=== PATIENT | male | born 1940 | race Caucasian/White ===

== ENCOUNTER → 2020-12-04 13:07 | Outpatient (CLI) | payer MEDICARE, SELFPAY ==
--- NOTE | 2020-12-04 13:12 | DI.RAD.S_ITS ---
PROCEDURE: XR LUMBAR SPINE MIN 4V INDICATIONS: lumbar radiculopathy TECHNIQUE: 5 views of the lumbar spine were acquired, including bilateral oblique views. COMPARISON: None. FINDINGS: Bones: No fracture. Grade 1 anterolisthesis of L4 on L5. Moderate narrowing of the L4-L5 and L5-S1 disc spaces. Multilevel degenerative endplate sclerosis and spurring. Diffuse facet arthropathy. Diffuse narrowing of the remaining lumbar disc spaces. Soft tissues: Overlying bowel gas pattern is normal. No suspicious soft tissue calcifications. Oblique images: No pars defects. IMPRESSION: Lower lumbar spondylosis and facet arthropathy Dictated by: Chai Vega M.D. on 12/04/2020 at 13:41 Approved by: Chai Vega M.D. on 12/04/2020 at 13:44
== END ==
PROVIDERS: PCP Physician Assistant; Referring Provider Physical Medicine & Rehabilitation; Visit Provider Physical Medicine & Rehabilitation
DX: M47.26 Other spondylosis with radiculopathy, lumbar region (principal); M43.16 Spondylolisthesis, lumbar region; M48.061 Spinal stenosis, lumbar region without neurogenic claudication
CPT/HCPCS: 72110; 99215

== ENCOUNTER → 2020-12-14 11:41 | Outpatient (CLI) | payer MEDICARE, SELFPAY ==
--- NOTE | 2020-12-14 11:43 | DI.MRI.S_ITS ---
PROCEDURE: MR LUMBAR SPINE WO CON INDICATIONS: L4-5 spondylolisthesis, spinal stenosis TECHNIQUE: Noncontrast sagittal T1 spin echo and T2 fast echo, sagittal STIR, axial T1 and T2 fast spin echo through the lumbar spine. In cases with scoliosis, additional coronal T2 fast spin echo may be performed. COMPARISON: [facility], CR, XR LUMBAR SPINE MIN 4V, 12/04/2020, 13:10. FINDINGS: Image quality: Excellent. Alignment and Curvature: 5 lumbar type vertebral bodies are present by plain film. Mild grade 1 anterolisthesis of L4 on L5. Bone Marrow: Marrow is of normal overall signal. No acute vertebral body compression fractures. Moderate reactive signal within the endplates adjacent to the L5-S1 intervertebral disc. Mild reactive signal within the endplates adjacent to the T12-L1, L1-L2, L2-L3, L3-L4, and L4-L5 intervertebral discs. Spinal Cord: Conus medullaris terminates at the lower L2 level. Visualized cord demonstrates normal signal and size. Paraspinous Soft Tissues: No paravertebral masses. T12-L1: Mild disc height loss and desiccation. Mild diffuse disc bulge. Mild facet and ligamentum flavum hypertrophy. Mild canal stenosis. No foraminal stenosis. L1-L2: Mild disc desiccation and diffuse disc bulge. Mild facet and ligamentum flavum hypertrophy. Mild epidural lipomatosis. Mild canal stenosis. Mild bilateral foraminal stenosis. L2-L3: Moderate disc desiccation. Mild disc height loss and diffuse disc bulge. Mild facet and ligamentum flavum hypertrophy. Mild epidural lipomatosis. Moderate to severe canal stenosis. Moderate right and mild left foraminal stenosis. L3-L4: Moderate disc height loss and desiccation. Moderate diffuse disc bulge. Moderate facet and ligamentum flavum hypertrophy. Mild epidural lipomatosis. Severe canal stenosis. Moderate right and mild left foraminal stenosis. L4-L5: Moderate disc height loss and desiccation. Moderate diffuse disc bulge with superimposed right left far lateral disc extrusion. Moderate facet and ligamentum flavum hypertrophy. Marked, severe canal stenosis. Severe left and moderate right foraminal stenosis. Left L4 nerve root compression. L5-S1: Severe disc height loss and desiccation. Mild diffuse disc bulge. Mild facet and ligamentum flavum hypertrophy. Mild epidural lipomatosis. Mild canal stenosis. Moderate bilateral foraminal stenosis. IMPRESSION: 1. Multilevel degenerative disc and facet disease, as well as ligamentum flavum hypertrophy and epidural lipomatosis. 2. Multilevel canal stenoses, worst at L3-L4 and L4-L5 where there are severe canal stenoses. Moderate to severe canal stenosis at L2-L3. 3. Multilevel foraminal stenoses, worst at L4-L5 where there is associated intraforaminal nerve root compression. Recommend correlation with clinical symptoms to ascertain relevance of this finding. Dictated by: Jaret Morales M.D. on 12/14/2020 at 13:22 Approved by: Jaret Morales M.D. on 12/14/2020 at 13:25
== END ==
PROVIDERS: PCP Physician Assistant; Referring Provider Physical Medicine & Rehabilitation; Visit Provider Physical Medicine & Rehabilitation
DX: M51.26 Other intervertebral disc displacement, lumbar region (principal); M43.16 Spondylolisthesis, lumbar region; M51.36 Other intervertebral disc degeneration, lumbar region; M51.37 Other intervertebral disc degeneration, lumbosacral region; M48.061 Spinal stenosis, lumbar region without neurogenic claudication; M48.07 Spinal stenosis, lumbosacral region; E88.2 Lipomatosis, not elsewhere classified
CPT/HCPCS: 72148

== ENCOUNTER → 2020-12-19 08:26 | Outpatient (CLI) | payer MEDICARE, SELFPAY ==
[2020-12-19 12:25] LABS: COVID19 -Nasal RAPID Negative (Negative)
== END ==
PROVIDERS: PCP Physician Assistant; Visit Provider Physical Medicine & Rehabilitation
DX: Z20.822 Contact with and (suspected) exposure to COVID-19 (principal)
CPT/HCPCS: 87635; C9803

== ENCOUNTER 2020-12-21 15:32 | Outpatient (CLI) | payer MEDICARE, SELFPAY ==
[2020-12-21] VITALS (10 sets, daily range): BP systolic 121–167; BP diastolic 74–91; PULSE 64–85; RESP 12–21; TEMP 36.5; O2SAT 97–100
--- NOTE | 2020-12-21 15:33 | DI.RAD.S_ITS ---
PROCEDURE: PAIN L/S TRANSFORAMINAL INJECT INDICATIONS: SPONDYLOSIS COMPARISON: None. FINDINGS: Fluoroscopic spot filming was performed to verify placement of spinal needles at the left L4-5 foraminal level(s), as labeled on the films. Appropriate location(s) of the needle tip(s) was confirmed by injection of iodinated contrast. IMPRESSION: Successful needle tip localization on the left for transforaminal epidural steroid injection. Dictated by: Ronal Guzman M.D. on 12/21/2020 at 16:54 Approved by: Ronal Guzman M.D. on 12/21/2020 at 16:55
[2020-12-21] MEDS: fentaNYL 100 MCG/2 ML INJ 50 MCG IV (16:05)
[2020-12-21] MEDS: MIDAZOLAM 5 MG/5 ML VIAL IV (16:10)
[2020-12-21] MEDS: IOPAMIDOL 15 ML VIAL 3 ML INJ (16:10)
[2020-12-21] MEDS: BUPIVACAINE 0.25% (PF) VIAL 2 ML INJ (16:10)
[2020-12-21] MEDS: DEXAMETHASONE 10 MG/ML VIAL 20 MG INJ (16:11)
[2020-12-21] MEDS: methylPREDNISolone acetate 80 MG/ML VIAL INJ (16:13)
--- NOTE | 2020-12-21 16:35 | P.PCN_ITS ---
Date/Time/Diagnoses Date of procedure: 12/21/20 Time of procedure: 16:35 Pre-procedure diagnosis: 1. FORAMINAL STENOSIS WITH LE SYMPTOMS Post-procedure diagnosis: same Procedure Notes Procedure: 1. FLUOROSCOPICALLY GUIDED CONTRAST CONTROLLED TRANSFORAMINAL EPIDURAL STEROID INJECTION - LEFT L4/5 Indications: Nathanael is referred by PATTI Rodriguez for treatment of Foraminal Stenosis with Left LE Symptoms Physician: Elder Garcia Total Fluoroscopy time (seconds): 26 Total sedation minutes: 22 Complications: none Procedure in detail & Post-procedure care: FINDINGS Foraminal Nerve Root Compression secondary to disc disease and facet hypertrophy DESCRIPTION OF PROCEDURE Following review of allergy and review of potential side effects and complications, including, but not necessarily limited to, infection, allergic reaction, local tissue breakdown, stroke, temporary or permanent nerve injury, paralysis, and possible , the patient indicated that the patient understood and agreed to proceed. An informed consent document was signed by the patient, witnessed by a nurse, and placed in the patient's chart. Additionally, other treatment options including medications, modalities, and physical therapy were reviewed with the patient. After review of previous anaesthesic history and IV conscious sedation the patient was deemed safe to proceed with today?s procedure with IV conscious sedation as ASA class II designation. Safety time-out was performed to confirm patient ID, procedure to be performed and site of procedure. IV sedation was accomplished with a combination of mg of Versed and 50mcg of Fentanyl administered by the RN after DO order, titrated to patient comfort during the course of the procedure while the patient remained responsive to all verbal commands In the prone position following sterile prep and drape of the lumbar region, the left L4/5 posterior neuroforamen was identified fluoroscopically. The skin was anesthetized via a 25-gauge 1.5-inch needle with 1% lidocaine solution. At this point, a 25-gauge 3.5-inch spinal needle was atraumatically introduced and advanced under fluoroscopic guidance through the posterior left L4/5 neuroforamen to approximately the anterior aspect of the canal. Depth was confirmed on lateral view. Following negative aspiration, injection of approximately 1.5 cc of Isovue 200 under live fluoroscopy in the AP view confirmed excellent flow along the nerve root, into the epidural space without vascular or intrathecal uptake observed Radiological data, including multiple fluoroscopic views of the lumbosacral spine, reveal a spinal needle at the left L4/5 posterior neuroforamen. Subsequent views show flow of contrast material flowing superiorly and inferiorly along the nerve root confirming epidural flow. Subsequently, a test dose of 1.5 cc of 1% lidocaine solution was administered and patient was observed for two minutes for signs or symptoms of complications, including abdominal pain, shortness of breath, bilateral upper or lower extremity weakness, nausea and vomiting, prior to steroid injection. At this point, a total of 3cc or 20mg of dexamethasone and 80mg of Depo medrol was injected without incident. The procedure tolerated the procedure well without signs or symptoms of complications prior to transfer to the recovery area continued monitoring without incident. The patient was then transferred to the recovery area where they were observed for an appropriate time after the injection. The patient reported a VAS score of 9 prior to the procedure and a post- procedure VAS of 1. POST OP INSTRUCTIONS The patient was provided a Pain Log to continue to record their response to the target-specific procedure prior to follow-up visit with their referring physician. Additionally, specific post-injection care instructions and a contact number to our office were provided if concerns arise regarding possible complications associated with the procedure are suspected.
== END 2020-12-21 16:52 | disposition home or self-care (01) ==
LOC: RAD 15:33
PROVIDERS: PCP Physician Assistant; Referring Provider Physical Medicine & Rehabilitation; Visit Provider Physical Medicine & Rehabilitation
DX: M48.061 Spinal stenosis, lumbar region without neurogenic claudication; M51.16 Intervertebral disc disorders with radiculopathy, lumbar region
CPT/HCPCS: 64483; 99152; J0702; J1040; J1100; J2250; J3010

== ENCOUNTER → 2021-03-19 10:19 | Outpatient (CLI) | payer MEDICARE, SELFPAY ==
[2021-03-19 17:59] LABS: COVID19 -Nasal RAPID Negative (Negative)
== END ==
PROVIDERS: PCP Physician Assistant; Visit Provider Physical Medicine & Rehabilitation
DX: Z20.822 Contact with and (suspected) exposure to COVID-19 (principal)
CPT/HCPCS: 87635; C9803

== ENCOUNTER 2021-03-20 10:27 | Outpatient (CLI) | payer MEDICARE, SELFPAY ==
[2021-03-20] VITALS (8 sets, daily range): BP systolic 116–148; BP diastolic 61–90; PULSE 76–92; RESP 17–28; TEMP 36.7; O2SAT 98–100
--- NOTE | 2021-03-20 10:28 | DI.RAD.S_ITS ---
PROCEDURE: PAIN L INTERLAMINAR/CAUDAL INJ INDICATIONS: SPONDYLOSIS COMPARISON: [facility], CR, XR LUMBAR SPINE MIN 4V, 03/20/2021, 12:19. [facility], XA, PAIN L/S TRANSFORAMINAL INJECT, 12/21/2020, 16:11. FINDINGS: Fluoroscopic spot filming was performed to verify placement of a spinal needle at the L4-L5 level, as labeled on the films. Appropriate location of the needle tip was confirmed by injection of iodinated contrast. IMPRESSION: Intraprocedural examination within normal limits. Dictated by: Aydin Raygoza M.D. on 03/20/2021 at 12:13 Approved by: Aydin Raygoza M.D. on 03/20/2021 at 12:14
[2021-03-20] MEDS: MIDAZOLAM 5 MG/5 ML VIAL IV (11:49)
[2021-03-20] MEDS: fentaNYL 100 MCG/2 ML INJ 50 MCG IV (11:49)
[2021-03-20] MEDS: BUPIVACAINE 0.25% (PF) VIAL 2 ML INJ (11:54)
[2021-03-20] MEDS: IOPAMIDOL 15 ML VIAL 3 ML INJ (11:54)
[2021-03-20] MEDS: BETAMETHASONE 30 MG/5 ML MDV 12 MG INJ (11:54)
[2021-03-20] MEDS: DEXAMETHASONE 10 MG/ML VIAL 20 MG INJ (11:56)
--- NOTE | 2021-03-20 12:06 | P.PCN_ITS ---
Date/Time/Diagnoses Date of procedure: 03/20/21 Time of procedure: 12:06 Pre-procedure diagnosis: 1. HNP WITH RADICULAR FEATURES, 2. MULTILEVEL CENTRAL STENOSIS, Post-procedure diagnosis: same Procedure Notes Procedure: 1. FLUOROSCOPICALLY GUIDED CONTRAST CONTROLLED INTERLAMINAR EPIDURAL STEROID INJECTION -L4/5 Indications: Devon is referred by PATTI Rodriguez for treatment of Bilateral Foraminal Stenosis R>L LE symptoms. Physician: Elder Garcia Total Fluoroscopy time (seconds): 5 Total sedation minutes: 10 Complications: none Procedure in detail & Post-procedure care: FINDINGS Multilevel Central Spinal Stenosis with Nerve Root Compression DESCRIPTION OF PROCEDURE Fluoroscopically guided, contrast-controlled L4/5 translaminar epidural steroid injection. Following review of allergy and review of potential side effects and complications, including, but not necessarily limited to, infection, allergic reaction, local tissue breakdown, temporary as well as permanent nerve injury, paralysis, stroke and possible , the patient indicated that the patient understood and agreed to proceed. An informed consent document was signed by the patient, witnessed by a nurse, and placed in the patient's chart. Additionally, other treatment options including modalities, medications, and physical therapy were reviewed with the patient. After review of previous anaesthesic history and IV conscious sedation the patient was deemed safe to proceed with today?s procedure with IV conscious sedation as ASA class II designation. Safety time-out was performed to confirm patient ID, procedure to be performed and site of procedure. IV sedation was accomplished with a combination of 2mg of Versed and 50mcg of Fentanyl was administered by the RN after DO order, titrated to patient comfort during the course of the procedure while the patient remained responsive to all verbal commands In the prone position, following sterile prep and drape of the lumbar region, the L4/5 translaminar space was identified fluoroscopically. The skin was anesthetized via a 25-gauge, 1.5inch needle with 1% lidocaine solution. At this point, a 22-gauge short bevel spinal needle was atraumatically introduced and advanced under fluoroscopic guidance into the region of the L4/5 translaminar space. Depth was confirmed on lateral view. Radiological data, including multiple fluoroscopic views of the lumbar spine, reveal a spinal needle at the L4/5 translaminar space. Lateral views then show placement of the needle in the epidural space. Subsequent views show contrast material flowing superiorly and inferiorly in the epidural space. No vascular or intrathecal uptake is observed. At this point, using loss of resistance technique with saline and air, the epidural space was entered. This was confirmed following negative aspiration with injection of approximately 1.5cc of Isovue 200, showing excellent epidural flow without vascular or intrathecal uptake. At this point, 1cc of 1% lidocaine solution combined with 4cc or 20mg of dexamethasone and 12mg betamethasone was injected without incident. The patient tolerated the procedure well without signs or symptoms of complications prior to transfer to the recovery area continued monitoring without incident. The patient was then transferred to the recovery area where they were observed for an appropriate period of time after the injection. The patient reported a VAS score of 6 prior to the procedure and a post- procedure VAS of 0. POST OP INSTRUCTIONS The patient was provided a Pain Log to continue to record their response to the target-specific procedure prior to follow-up visit with their referring physician. Additionally, specific post-injection care instructions and a contact number to our office were provided if concerns arise regarding possible complications associated with the procedure are suspected.
--- NOTE | 2021-03-20 12:12 | DI.RAD.S_ITS ---
PROCEDURE: XR LUMBAR SPINE MIN 4V INDICATIONS: Severe acute LBP TECHNIQUE: 5 views of the lumbar spine acquired, including flexion and extension views. COMPARISON: [facility], MR, MR LUMBAR SPINE WO CON, 12/14/2020, 11:45. [facility], CR, XR LUMBAR SPINE MIN 4V, 12/04/2020, 13:10. FINDINGS: There are 5 [id number] lumbar type vertebral bodies. Vertebral body heights maintained. No evidence of fracture. Anterolisthesis of L4 on L5 measuring approximately 10 millimeters in the neutral position, possibly increasing to 11 millimeters in the flexion position. Severe spinal canal or neural foraminal stenosis at this level is better seen on the comparison MRI. Straightening of the usual lumbar lordosis at the remaining levels. No additional listhesis. Disc height loss from L2-L3 through L5-S1 with varying degrees of facet degenerative change. IMPRESSION: Grade 1 anterolisthesis of L4 on L5 with suggestion of mild dynamic instability upon flexion. Severe spinal canal or neural foraminal stenosis at L4-L5. Dictated by: Nikhil Gomez M.D. on 03/20/2021 at 14:44 Approved by: Nikhil Gomez M.D. on 03/20/2021 at 14:46
== END 2021-03-20 12:50 | disposition home or self-care (01) ==
LOC: RAD 10:28
PROVIDERS: PCP Physician Assistant; Referring Provider Physical Medicine & Rehabilitation; Visit Provider Physical Medicine & Rehabilitation
DX: M51.16 Intervertebral disc disorders with radiculopathy, lumbar region (principal); M48.061 Spinal stenosis, lumbar region without neurogenic claudication
CPT/HCPCS: 62323; 72110; 99152; J0702; J1100; J2250; J3010

== ENCOUNTER → 2021-09-17 11:51 | Outpatient (CLI) | payer MEDICARE, SELFPAY ==
--- NOTE | 2021-09-17 | DI.CT.S_ITS ---
PROCEDURE: CT LUMBAR SPINE WO CON INDICATIONS: Spinal stenosis, lumbosacral region TECHNIQUE: Noncontrast 3 mm thick sections acquired from the T12 level to the sacrum. Sagittal and coronal reformats were constructed. For radiation dose reduction, the following was used: automated exposure control. COMPARISON: [facility], MR, MR LUMBAR SPINE WO CON, 12/14/2020, 11:45. FINDINGS: Image quality: Excellent. Bones: There is grade 1 anterolisthesis measuring 6 mm of L4 on L5, unchanged. There are no visualized fractures or dislocations. No suspicious osseous lesions. Severe disc space narrowing is present at L5-S1, moderate throughout the remainder of the lumbar spine with vacuum disc at L4-5. Multilevel anterior osteophytes are present bridging at T10-11. Disc bulges are present at L1-L2, L2-3, L3-4, L4-5 and L5-S1. Previously identified disc protrusion at L4-5 remains present. Mild spinal stenosis is present at L1-L2, severe L2-3 with mild canal compression, progressive, severe L3-4 with canal compression stable, stable severe with canal compression at L4-5, mild L5-S1. Multilevel facet and ligamentum flavum hypertrophy as well as epidural lipomatosis are present. There is mild bilateral foraminal narrowing at L1-2, moderate right and mild left L2-3, L3-4, severe left and moderate right L4-5, moderate bilateral L5-S1, unchanged. Soft tissues: No retroperitoneal masses or hematomas. Visualized aorta is normal in caliber. Calculus is present within the left posterior lateral bladder. There is a partially visualized soft tissue mass at the posterior bladder. IMPRESSION: Multilevel significant degenerative changes including multilevel severe spinal stenosis with areas of progression as above. Spinal stenosis is predominantly secondary to facet/ligamentum flavum arthropathy with contributing effect of disc bulges and epidural lipomatosis. Multilevel foraminal narrowing most severe at L4-5 secondary to facet arthropathy. Partially visualized soft tissue mass at the posterior inferior bladder. This could represent hypertrophy prostate tissue. However, it is only seen in limited view and further evaluation with CT is recommended. Dictated by: Rupinder Winslow M.D. on 09/17/2021 at 12:41 Approved by: Rupinder Winslow M.D. on 09/17/2021 at 14:21
== END ==
PROVIDERS: PCP Physician Assistant; Referring Provider Orthopaedic Surgery Orthopaedic Surgery of the Spine; Visit Provider Orthopaedic Surgery Orthopaedic Surgery of the Spine
DX: M48.07 Spinal stenosis, lumbosacral region (principal); M48.061 Spinal stenosis, lumbar region without neurogenic claudication; M47.816 Spondylosis without myelopathy or radiculopathy, lumbar region; M47.817 Spondylosis without myelopathy or radiculopathy, lumbosacral region
CPT/HCPCS: 72131

== ENCOUNTER → 2021-10-08 10:32 | Outpatient (CLI) | payer MEDICARE, SELFPAY ==
[2021-10-08 13:12] LABS: COVID19 -Nasal RAPID Negative (Negative)
== END ==
PROVIDERS: PCP Physician Assistant; Visit Provider Family Medicine Sleep Medicine
DX: Z20.822 Contact with and (suspected) exposure to COVID-19 (principal)
CPT/HCPCS: 87635; C9803

== ENCOUNTER 2021-10-11 09:30 | Inpatient (IN) | payer MEDICARE, SELFPAY ==
[2021-10-02 12:42] VITALS: BMI 28.0
[2021-10-10] VITALS (12 sets, daily range): BP systolic 98–145; BP diastolic 58–78; PULSE 70–85; RESP 8–19; TEMP 36.2–37.1; O2SAT 94–100; BMI 28.0
--- NOTE | 2021-10-10 | DI.RAD.S_ITS ---
PROCEDURE: XR LUMBAR SPINE 2-3V INDICATIONS: TLIF L4-5, L5-S1 TECHNIQUE: 2 low resolution fluoroscopic spot films were obtained the lower lumbar spine intraoperatively COMPARISON: [facility], , XR LUMBAR SPINE MIN 4V, 03/20/2021, 12:19. FINDINGS: Low resolution fluoroscopic spot films of the lower lumbar spine shows L4-5 and L5-S1 interbody fusion with posterior josephine and screw instrumentation, in place IMPRESSION: Fluoroscopic guidance Approved by: Jono Bustamante M.D. on 10/10/2021 at 15:43
[2021-10-10] MEDS: LACTATED RINGERS 1,000 ML 42 ML IV ×2 (09:41→12:55)
--- NOTE | 2021-10-10 11:19 | PM.PREOP ---
Pre-operative Note COVID-19 COVID-19 status: Negative Result date/Date tested (Pos, Neg/Pending): 10/09/21 Criteria for continued procedure: Expected advancement of disease process, Possibility delay results in more complex future surgery or treatment, Increased loss of function, Continuing or worsening of significant or severe pain, Deterioration of the patient's condition or overall health and Delay expected to result in less-positive ultimate med/surg outcome Interval Note History & Physical reviewed/Exam performed by Physician: Yes Changes to H&P: No
[2021-10-10] MEDS: CEFAZOLIN 2 GM/20 ML SYRINGE IV ×2 (12:05→21:42)
--- NOTE | 2021-10-10 12:39 | SUR.OPER ---
Prone on spine table, head in foam head support, padded chest and pelvic supports, gel pad at knees, lower legs supported by pillows; nipples, genitalia and toes free of pressure, arms secured on foam padded arm boards at <90 degrees abduction. Tape over blanket at thigh secured to table. Gel pad placed between heels. Patient's glasses placed in glass case with patient label in patient belonging bag in pre op.
[2021-10-10] MEDS: EPINEPHrine 1 MG/ML 0.15 MG INJ (13:42)
[2021-10-10] MEDS: BUPIVACAINE 0.5% (PF) VIAL 30 ML INJ (13:43)
[2021-10-10] MEDS: BUPIVACAINE LIPOSOME 266 MG/20 ML VIAL INJ (15:30)
--- NOTE | 2021-10-10 16:01 | PM.OP.1 ---
Operative Date/Time/Diagnoses Date of procedure: 10/10/21 Time of procedure: 12:15 Pre-op diagnosis: 1. L4-5 spondylolisthesis 2. L4-5, L5-S1 spinal stenosis with neurogenic claudication Post-op diagnosis: same Procedure & Clinicians Procedure: 1. L4-5, L5-S1 Postero-lateral and posterior interbody fusion 2. L4-5, L5-S1 interbody cage placement. 3. L4-5, L5-S1 decompressive laminectomy with bilateral facetecomies 4. L4-5, L5-S1 Posterior segmental instrumentation 5. [place] of bone marrow from iliac crest 6. Utilization of microsurgical technique and operating microscope Same procedure as scheduled: Yes Indications: Patient has been having chronic back pain and worsening lumbar radiculopathy and symptoms of neurogenic claudication. Patient also has complaints of urinary retention most likely related to his severe spinal stenosis in the lumbar spine. Patient failed multiple conservative management with worsening pain weakness and numbness in his lower extremity. Patient has been having difficulty performing activity of daily living. After discussing risks benefits of treatment options, patient elected proceed with surgery. Surgeon: Juan Chatman Towboat Pilot: Cornelia Finney Click Yes if Unassisted: No Anesthesia Type: General Operative Notes Closure Type: primary Specimen(s): none sent Estimated Blood Loss (mL): 150 Blood products transfused: none Procedure in detail: Patient was seen in the preoperative area. Risks and benefits of the surgery was discussed with the patient. Informed consent was obtained from the patient and placed in the chart. Surgical site was marked. Patient was taken to the operative room. General anesthesia was administered. Prophylactic antibiotic was given to the patient less than 30 min before the incision was made. Patient was placed into a prone position on the Zana table. Patient's back was then prepped and draped in the sterile fashion. Time-out was performed at this time. After patient was prepped and draped, patient's PSIS was palpated and marked bilaterally. Small 1 cm incision was made over the PSIS for placement of the reference probes. Two trocar was placed into the PSIS 1 on each side. The reference probe was attached to the trocar of the reference apparatus. At this time the C-arm imaging was used to confirm AP and lateral of L4-L5, L5-S1 vertebrae and merged the C-arm imaging using the [employer] robotic navigation system with the CT of the lumbar spine. After successful merging was completed and confirmed, skin marker was used to carmine out the skin incision using the [employer] robotic arm. Bilateral incision was made at this time. Pre templated trajectory was used and guided using the [employer] robotic navigation system for bilateral L4, L5, S1 pedicle screw placement. This was done by using the robotic arm to guide the high-speed bur to make a cortical entry point. Next a drill was placed also using the robotic arm and guided using the navigation system drilling partially through bilateral L4, L5 and S1 pedicles. Next L4, L5, S1 pedicle screws it was pre templated and measured was placed onto the power mechanic driver and inserted into the pedicles bilaterally. After all 6 screws were placed C-arm imaging was taken of both AP and lateral to confirm the placement. Excellent placement of the screws were confirmed and a matched precisely with the pre planned screw placement using the navigation system. MARs retractor was inserted using [employer] guidence. Globus MARS retractors was placed inside the incision and docked onto the L4 and L5 lamina. Using microsurgical technique and operating microscope, a L4, L5 laminectomy and L4-5, L5-S1 facetectomy was performed using a Kerrison rongeur. Patient was found have severe lateral recess and neural foramen stenosis which was fully decompressed after the laminectomy facetectomy. Patient was found to have severe central and foraminal stenosis due to hypertrophied ligamentum flavum and facet joint. More than 75% of the facets were removed during the process of decompression rendering L4-5, L5-S1 level grossly unstable and required a fusion procedure at the same time. The disc space at L4-5, L5-S1 was identified, and a total diskectomy was performed at L4-5, L5-S1 level. The endplates were decorticated using a rasp and shaver. The total diskectomy and decortication was performed at L4-5, L5-S1 level in order to to accomplish a L4-5, L5-S1 fusion. The local bone from the laminectomy and facetectomy was saved for local bone grafting. After the total diskectomy and decortication was completed, Trifecta bone graft material was combined with local bone that was harvested earlier. At this time, a separate skin is incision was made over the iliac crest. A Jamshidi needle was inserted into the iliac crest through a separate skin incision. 5 cc of bone marrow aspiration was obtained through the separate skin incision using a Jamshidi needle from the iliac crest. The bone marrow aspiration was combined with local bone and the Tr[employer] bone grafting material. The bone grafting material was placed into the L4-5, L5-S1 interbody space along with a expandable cage. The cage was expanded to its maximum height using the torque limiting screwdriver. The disc preparation as well as the cage insertion were also performed under navigation guidance. After the cage was placed, AP and lateral C-arm imaging was taken to confirm placement of the cage and excellent position was confirmed. Globus MARS retractor was inserted and docked onto the L4-5, L5-S1 posterolateral gutter on the right side. Using the power drill, posterior-lateral decortication was performed at L4-5, L5-S1 level until bleeding cortical bone was identified. The remaining bone grafting material was placed into the L4-5, L5-S1 posterior lateral gutter he order to accomplish posterolateral fusion at the L4-5, L5-S1 level. At this time the tulips were attached to the L4, L5, S1 pedicle screw shanks. After measuring the length of the rods, they were inserted into the tulips of the pedicle screws and locked in place using locking caps and torque limiting screwdriver bilaterally. Total 6 caps and 2 titanium rods was used in order to complete the posterior instrumentation construct. After all the hardware was placed, and confirmed with AP and lateral C-arm imaging, the wound was then irrigated with sterile normal saline and packed with Ray-Sakshi gauze for 3 min to accomplish hemostasis. After the gauze was removed the deep fascia was closed with #1 Vicryl suture. The subcutaneous layer was closed with 2-0 Vicryl. The skin was closed with skin moira. Patient tolerated the procedure well. There were no complications. Neuro monitoring system was used to monitor patient's neurologic status throughout entire procedure. There was no disturbance of the neural monitoring signals throughout the case. Complications: none Post-operative Condition: stable Disposition: PACU Plan for aftercare: Admit to inpatient hospital
[2021-10-10] MEDS: OXYCODONE/ACETAMINOPHEN 5/325 TABLET 1 TAB PO (16:22)
[2021-10-10] MEDS: hydrOXYzine 50 MG/ML INJ IM (16:22)
[2021-10-10] MEDS: fentaNYL 100 MCG/2 ML INJ IV ×2 (16:30→16:41)
--- NOTE | 2021-10-10 16:51 | SUR.PHASEI ---
report called to acute care rn. opportunity to ask questions provided.
[2021-10-10] MEDS: SODIUM CHLORIDE 0.9% 1,000 ML 100 ML IV (17:33)
--- NOTE | 2021-10-10 18:01 | PC.NURSE ---
Addendum entered by Dominique Finney R.N. 10/10/21 18:55: offered food, pt refused to eat. Original Note: at this time patient is sleeping and snoring.
[2021-10-10] MEDS: SENNOSIDES 8.6 MG TABLET 17.2 MG PO (21:42)
[2021-10-10] MEDS: OXYCODONE IR 5 MG TABLET 10 MG PO (21:43)
[2021-10-10] MEDS: DOCUSATE 100 MG CAPSULE PO (21:43)
[2021-10-10] MEDS: DORZOLAMIDE/TIMOLOL OPHTH 10 ML 1 DROPS EYE-BOTH (21:43)
[2021-10-11 04:00] VITALS: BP 107/66; PULSE 67; RESP 18; TEMP 36.7; O2SAT 98
[2021-10-11] MEDS: ACETAMINOPHEN 325 MG TABLET 650 MG PO (04:29)
[2021-10-11] MEDS: OXYCODONE IR 5 MG TABLET 10 MG PO ×3 (04:29→13:08)
[2021-10-11] MEDS: CEFAZOLIN 2 GM/20 ML SYRINGE IV (04:30)
[2021-10-11] MEDS: SODIUM CHLORIDE 0.9% 1,000 ML 100 ML IV (04:30)
[2021-10-11 07:49] VITALS: BP 105/57; PULSE 72; O2SAT 100
[2021-10-11 08:18] LABS: Hematocrit 32.7 % (41-53)
[2021-10-11] MEDS: MONTELUKAST 10 MG TABLET PO (09:04)
[2021-10-11] MEDS: DOCUSATE 100 MG CAPSULE PO (09:04)
[2021-10-11] MEDS: hydroCHLOROthiazide 25 MG TABLET PO (09:04)
[2021-10-11 09:09] VITALS: BP 105/58; PULSE 71
[2021-10-11] MEDS: METOPROLOL ER 50 MG TABLET PO (09:09)
[2021-10-11] MEDS: DORZOLAMIDE/TIMOLOL OPHTH 10 ML 1 DROPS EYE-BOTH (09:11)
--- NOTE | 2021-10-11 10:09 | PT.IIE ---
Addendum entered and electronically signed by Bernadette Storey, PT 10/11/21 11:56: BP correction 107/68. Original Note: Current Diagnoses Spondylolisthesis, lumbar region (10/10/21) Spinal stenosis, lumbar region with neurogenic claudication (10/10/21) Surgery Performed Operation Date: 10/10/21 10:45 Actual Procedures p L4-5,L5-S1 TLIF w. posterior instrumentation-Robot - Juan Chatman MD Medical History (Last Updated 10/02/21 @ 13:24 by Dinorah Davila RN) Depression Glaucoma Hearing impaired HNP (herniated nucleus pulposus), lumbar HTN (hypertension) Lumbar foraminal stenosis Sciatica Seasonal allergies Skin rash Spinal stenosis Spondylolisthesis at L4-L5 level Stomach ulcer (1996) Physical Therapy Inpatient Evaluation/Re-Eval M1 PT/OT-IP Prior Functional Status Start: 10/11/21 09:56 Freq: Status: Active Protocol: Document 10/11/21 09:57 BC (Rec: 10/11/21 10:09 [id number]) Medical Review Prior Functional Status Medical History Reviewed Yes Mobility and Gait Independent. Has a cane and walker he would use due to LBP . Activities of Daily Living and IADL's Independent Social History Household Members none Living Arrangements House Number of Floors (Floors) One Floor Number of Stairs To Enter/Railing? 2 with railing Home Environment High Toilet,Walk in Shower Home Equipment Four Wheel Walker,Straight Cane,Shower Seat with Backrest Employment Status Retired M2 PT-IP Current Condition Start: 10/11/21 09:56 Freq: Status: Active Protocol: Document 10/11/21 09:57 BC (Rec: 10/11/21 10:09 [id number]) Physical Therapy Current Condition Current Condition Evaluation Date 10/11/21 Treatment Diagnosis difficulty with ambulation; post op spinal surgery; reduced BLE strength Onset Date 10/10/2021 M3 PT-IP Subjective Start: 10/11/21 09:56 Freq: Status: Active Protocol: Document 10/11/21 09:57 BC (Rec: 10/11/21 10:09 [id number]) Subjective Physical Therapy Visit Type Type Initial Evaluation Visit Start Time 09:15 Visit Stop Time 09:50 Total Visit Minutes 35 Physical Therapy Visit Comments Patient Comments Pt states he hopes to go home tonight. Patient Goals To get his strength back and move without pain. Therapy Pain Assessment Pain When Pain Assessed At Rest Pain Present Pain Present Pain Reported Location back Intensity 2 Scale Used Numeric (0 - 10) M4 PT-IP Mobility and Gait Start: 10/11/21 09:56 Freq: Status: Active Protocol: Document 10/11/21 09:57 BC (Rec: 10/11/21 10:09 [id number]) PT-Bed Mobility Assessment Rolling Type of Rolling Log Rolling Level of Assist Standby Assistance Supine to Sit Supine to Sit Standby Assistance Sit to Supine Sit to Supine Standby Assistance Scooting Scooting to Edge of Bed Standby Assistance PT-Transfer Assessment Sit to and From Stand Sit to and from Stand Standby Assistance Equipment Transfer Assistive Device Gait Belt,Front Wheeled Walker Transfers Transfer Destination Chair Transfer Technique Stand Pivot Transfer Ability Level of Assist Standby Assistance Comments Mobility Comments Pt needing SBA for reports of wooziness only. No physical support needed to prevent LOB or complete transfers. Gait Assessment Gait Gait Assistance Required: Standby Assistance Distance (Feet) 30 Assistive Devices Assistive Device Gait Belt,Front Wheeled Walker Gait Deviations General Gait Pattern Decreased Stride Length, Decreased Feet Clearance Factors Limiting Gait Function Factors Limiting Gait Function Pain Comments Gait Comments Pt ambulation is guarded due to pain. Occasional episodes of LLE knee buckling as Pt fatigued with ambulation but Pt able to maintain balance and safety with FWW and SBA. PT-Balance Assessment Sitting Balance and Reactions Static Sitting Balance Ability Normal Dynamic Sitting Balance Ability Normal Standing Balance and Reactions Static Standing Balance Ability Good Dynamic Standing Balance Ability Fair Device Used FWW M5 PT-IP Objective Assessments Start: 10/11/21 09:56 Freq: Status: Active Protocol: Document 10/11/21 09:57 BC (Rec: 10/11/21 10:09 [id number]) Orientation Orientation/Cognition Level of Alertness Alert Orientation Name,Age,Month,Year,Place, Situation Safety Awareness Understands Safety Issues Gross Range of Motion Upper Extremity ROM Assessment Within Functional Limits Lower Extremity ROM Assessment Within Functional Limits Strength Upper Extremity Strength Assessment Within Functional Limits Lower Extremity Strength Assessment Right Impaired Hip grossly 4-/5 Knee grossly 4-/5 Ankle grossly 4-/5 Comments Strength Comments Generalized BLE weakness, likely present prior to sx Coordination Assessment Gross Coordination Gross Coordination WNL Sensation Assessment Sensation Gross Sensation WNL Sensation Description Numbness Comments Sensation Comments Reports some numbness in SI area after ~30' of ambulation that resolved with seated rest break. Muscle Tone Muscle Tone WNL Yes M6 PT-IP Treatment Start: 10/11/21 09:56 Freq: Status: Active Protocol: Document 10/11/21 09:57 BC (Rec: 10/11/21 10:09 [id number]) Physical Therapy Treatment Education Education Provided Precautions,Post-Op Packet, Safety Other Treatments Other Treatment Performed Pt educated on post op spinal precautions. We discussed safety modifications for car transfers and mobility in home while maintaining spinal precautions. M7 PT-IP Assessment and Plan Start: 10/11/21 09:56 Freq: Status: Active Protocol: Document 10/11/21 09:57 BC (Rec: 10/11/21 10:09 [id number]) PT Summary Assessment and Plan Potential Rehabilitation Potential Excellent Status of Condition at Evaluation Stable Summary Impairments Pain,Strength,Balance,Bed Mobility,Transfers,Gait, Activity Tolerance Progress Towards Goals Progressing Toward Goals Assessment Summary Pt admitted s/p L4-S1 spinal fusion and laminectomy due to severe spinal stenosis with neurogenic claudication and bladder retention. He lives I' ly in a private home with 2 steps to enter. His PLOF was modif I to Ind. CLOF: He is demonstrating SBA for bed mobility, transfers and ambulation. He is demonstrating good safety awareness of spinal precautions and fall risk. He reports wooziness with standing/ambulation. BP monitored closely. Seated BP 107/687 and after ambulation 111/70. Pt has good home support with a family member coming to stay 24/7 at discharge and all needed DME. Recommend d/c home with HHPT for home safety assessment. Goals Bed Mobility Goal Independent Transfer Goal Independent,Front Wheeled Walker Gait Goal Independent,Front Wheel Walker Gait Distance 100 Other Goals Ascend/descend 2 steps with railing and SBA. Days to Meet Goals 3 Frequency of Treatment Frequency Of Treatment Twice a Day Treatment Plan Physical Therapy Treatment Plan Bed Mobility Training,Transfer Training,Gait Training, Therapeutic Exercise,Balance Retraining,Post Op Education, Discharge Planning Precautions Lumbar Precautions Log Roll,No Twisting,Limit Bending,Lifting Restriction of 10 lbs,Gait Belt above Incisional Area Recommendations To Nursing Amount of Assist Needed Standby Assistance,1 Person Assist Discharge Recommendations PT Discharge Recommendations Home with 24/7 Assist Available,Home Health Transportation Needs at Discharge Private Vehicle
[2021-10-11 11:40] VITALS: BP 106/65; PULSE 70; RESP 18; O2SAT 99
--- NOTE | 2021-10-11 12:12 | P.DS_ITS ---
History of Present Illness History of Present Illness Date Patient Seen: 10/11/21 Time Patient Seen: 12:12 Chief complaint: TLIF *OPB* Narrative: Operative Date/Time/Diagnoses Date of procedure: 10/10/21 Time of procedure: 12:15 Pre-op diagnosis: 1. L4-5 spondylolisthesis 2. L4-5, L5-S1 spinal stenosis with neurogenic claudication Post-op diagnosis: same Procedure & Clinicians Procedure: 1. L4-5, L5-S1 Postero-lateral and posterior interbody fusion 2. L4-5, L5-S1 interbody cage placement. 3. L4-5, L5-S1 decompressive laminectomy with bilateral facetecomies 4. L4-5, L5-S1 Posterior segmental instrumentation 5. [place] of bone marrow from iliac crest 6. Utilization of microsurgical technique and operating microscope Same procedure as scheduled: Yes Indications: Patient has been having chronic back pain and worsening lumbar radiculopathy and symptoms of neurogenic claudication.? Patient also has complaints of urinary retention most likely related to his severe spinal stenosis in the lumbar spine. Patient failed multiple conservative management with worsening pain weakness and numbness in his lower extremity.? Patient has been having difficulty performing activity of daily living.? After discussing risks benefits of treatment options, patient elected proceed with surgery. Surgeon: Juan Chatman Utilization Management Um Nurse: Cornelia Finney Click Yes if Unassisted: No Anesthesia Type: General Operative Notes Closure Type: primary Specimen(s): none sent Estimated Blood Loss (mL): 150 Blood products transfused: none Discharge Providers Provider Date of admission: 10/11/21 09:30 Discharge Date: 10/11/21 Primary care physician: Cony Rodriguez PA-C Consults: 10/10/21 11:48 Consult to Certified Indoor Environmentalist Routine Comment: 10/10/21 17:28 Consult to Occupational Therapy Evaluate & Treat Comment: Physician Instructions: Evaluate and treat Consult to Physical Therapy Evaluate & Treat Comment: Physician Instructions: Evaluate and Treat 10/10/21 17:59 Consult to Certified Indoor Environmentalist Routine Comment: Discharge provider: Briana Rdz PA-C Summary Hospital Course Discharge Diagnosis: S/p Lumbar fusion Acute anemia d/t expected surgical blood loss Hospital Course: Mr Aviles's hospital course was unremarkable. On POD# 1 he was feeling well and wanted to go home. He has his best friend's son at home for help. He was eating without difficulty and his pain was well-controlled, though he did feel a little 'loopy' with oxycodone. His hess catheter was removed prior to discharge and he was able to void independently. Exam Vital Signs (past 8 hours): - 10/11/21 07:49 10/11/21 09:09 10/11/21 11:40 Pulse Rate 72 71 70 Respiratory Rate 18 Blood Pressure 105/57 L 105/58 L 106/65 Pulse Oximetry 100 99 Oxygen Delivery Method Nasal Cannula Oxygen Flow Rate 0 Narrative Exam Narrative: 5/5 strength in hip flexors, quadriceps, hamstrings, DF, PF, EHL bilaterally. Sensation to light touch intact throughout BLE. Calves soft, compressible, nontender and without palpable cords or masses. Dressing saturated with old blood on the left; changed, no active bleeding. Objective Labs Result Diagrams: 10/11/21 07:31 Labs: Laboratory Results - last 24 hr 10/11/21 07:31 Hgb 11.0 L Hct 32.7 L PFSH Medical History (Updated 10/02/21 @ 13:24 by Dinorah Davila RN) Depression Glaucoma Hearing impaired HNP (herniated nucleus pulposus), lumbar HTN (hypertension) Lumbar foraminal stenosis Sciatica Seasonal allergies Skin rash Spinal stenosis Spondylolisthesis at L4-L5 level Stomach ulcer (1996) Surgical History (Updated 10/11/21 @ 12:06 by Briana Rdz PA-C) Hx of appendectomy Hx of bilateral cataract extraction Hx of shoulder surgery Hx of tonsillectomy Family History Father due to natural causes Mother due to natural causes Brother Kidney lesion Social History household members: none Smoking Status: Former smoker alcohol intake: current Discharge Assessment & Plan Assessment and Plan Assessment: POD# 1 s/p L4-5, L5-S1 transforaminal lumbar interbody fusion Plan of Treatment: Discharge home with hydrocodone/APAP and cyclobenzaprine has pt has taken these medications at home in the past. Discharge Plan Discharge Plan Patient Disposition: Home Discharge orders & Medications Prescriptions: New docusate sodium 100 mg Capsule 100 mg PO BID PRN (Reason: constipation) Qty: 60 0RF Continued gabapentin 300 mg capsule 300 mg PO .COMPLEX PRN (Reason: pain) 0RF Rx Instructions: 1-2 PO Tid to begin at HS and titrate to pain relief losartan-hydrochlorothiazide 100-25 mg tablet 1 tab PO DAILY 0RF metoprolol succinate 50 mg tablet extended release 24 hr 50 mg PO DAILY 0RF amlodipine 5 mg tablet 5 mg PO DAILY 0RF montelukast 10 mg tablet 10 mg PO DAILY 0RF acetaminophen 500 mg capsule 500 mg PO DAILY PRN (Reason: Pain) 0RF dorzolamide-timolol 22.3-6.8 mg/mL drops 1 drp EYE-BOTH BID 0RF Vyzulta 0.024 % drops 1 drp EYE-BOTH BEDTIME 0RF Changed cyclobenzaprine 10 mg tablet 10 mg PO TID PRN (Reason: muscle spasm) Qty: 60 0RF hydrocodone-acetaminophen 10-325 mg tablet 1 tab PO Q4-6H PRN (Reason: pain (scale score 7-10)) Qty: 40 0RF Discontinued meloxicam 15 mg tablet 15 mg PO DAILY PRN (Reason: Pain) 0RF Follow up/Referrals: Juan Chatman MD [Physician] - As previously scheduled (Follow up w/ Dr Chatman on 10/23/2021 @ 1:00 pm at [facility] Cony Rodriguez PADebbieC [Primary Care Provider] - Diet/Activity/Treatments Diet: Diet as Tolerated Activity: Walk frequently! No bending more than 90 degrees at the waist. No twisting at the waist. No lifting > 20 #. Skin/Wound/Dressing Care Report to your healthcare provider any signs of infection, such as:: chills, fever, night sweats, unusual drainage and unusual redness Dressing: May shower. Keep dressing as dry as possible. May change if it gets wet inside. No bathing or otherwise soaking incisions. Do not apply any creams, lotions, or ointments to incisions. Visit Report/Discharge Packet Instructions: DI for Heart Failure, DI for Prescription Opioid Use, DI for Transforaminal Lumbar Interbody Fusion Stand Alone Forms: Surgery Discharge Discharge Data Primary Care Provider: Cony Rodriguez
--- NOTE | 2021-10-11 12:23 | OT.IP.EVAL ---
Current Diagnoses Spondylolisthesis, lumbar region (10/11/21) Spinal stenosis, lumbar region with neurogenic claudication (10/11/21) Surgery Performed Operation Date: 10/10/21 10:45 Actual Procedures p L4-5,L5-S1 TLIF w. posterior instrumentation-Robot - Juan Chatman MD Past Medical History (Last Updated 10/02/21 @ 13:24 by Dinorah Davila, RN) Depression Glaucoma Hearing impaired HNP (herniated nucleus pulposus), lumbar HTN (hypertension) Hx of appendectomy Hx of bilateral cataract extraction Hx of shoulder surgery Hx of tonsillectomy Lumbar foraminal stenosis Sciatica Seasonal allergies Skin rash Spinal stenosis Spondylolisthesis at L4-L5 level Stomach ulcer (1996) Surgical History (Last Updated 10/02/21 @ 13:17 by Dinorah Davila, ASHLEY) Hx of appendectomy Hx of bilateral cataract extraction Hx of shoulder surgery Hx of tonsillectomy Occupational Therapy Inpatient Evaluation/Re-Eval M1 PT/OT-IP Prior Functional Status Start: 10/11/21 09:56 Freq: Status: Active Protocol: Document 10/11/21 11:55 [facility] (Rec: 10/11/21 13:38 [facility] [id number]) Medical Review Prior Functional Status Medical History Reviewed Yes Mobility and Gait Independent. Has a cane and walker he would use due to LBP . Activities of Daily Living and IADL's Independent Social History Household Members none Living Arrangements House Number of Floors (Floors) One Floor Number of Stairs To Enter/Railing? 2 with railing Home Environment High Toilet,Walk in Shower Home Equipment Four Wheel Walker,Straight Cane,Shower Seat with Backrest Employment Status Retired Additional Social History Comment Pt has his best friend's son staying with him to assist with his needs for now. M2 OT-IP Current Condition Start: 10/11/21 13:19 Freq: Status: Active Protocol: Document 10/11/21 11:55 [facility] (Rec: 10/11/21 13:38 [facility] [id number]) Occupational Therapy Current Condition Current Condition Evaluation Date 10/11/21 Treatment Diagnosis S/p L4-5, L5-S1 TLIF Diagnosis Onset Date 10/10/21 Post Operative Precautions Lumbar Precautions Log Roll,No Twisting,Limit Bending,Lifting Restriction of 10 lbs,Gait Belt above Incisional Area M3 OT- IP Subjective and Pain Start: 10/11/21 13:19 Freq: Status: Active Protocol: Document 10/11/21 11:55 [facility] (Rec: 10/11/21 13:38 [facility] [id number]) OT- Subjective Occupational Therapy Visit Type Type Initial Evaluation Visit Start Time 11:55 Visit Stop Time 12:23 Total Visit Minutes 28 Occupational Therapy Visit Comments Patient Comments Pt agreed to do OT eval. Patient/Caregiver Goals To go home. OT Pain Assessment Pain When Pain Assessed At Rest Pain Present Pain Present Pain Reported Location back Intensity 2 Scale Used Numeric (0 - 10) M4 OT- IP ADL's Start: 10/11/21 13:19 Freq: Status: Active Protocol: Document 10/11/21 11:55 [facility] (Rec: 10/11/21 13:38 [facility] [id number]) OT EDU-Oebq-Xaboljo General Evaluation Self-Feeding Ability Independent OT ADL-Grooming General Evaluation Grooming Ability Independent OT ADL-Oral Care Comments Oral Care Comments Educated to pt to best to hinge at his hips or spit into a cup to best follow his back precautions. OT ADL-Dressing General Eval Lower Body Dressing Ability Standby Assistance,Maximum Assistance Comments OT Dressing Comments Practiced use of LB dressing equipment for dressing needs and able to issue to pt. OT ADL-Toileting Comments OT Toileting Comments Benavides in place. Pt able to lean to the side appropriately to be able to wipe and follow his back precautions. Suggested use of wet wipe to increased ease can be helpful. OT ADL-Bathing Comments OT Bathing Comments Pt insistent to shower at home . Pt states to get a shower chair for home use. M5 OT- IP IADL's Start: 10/11/21 13:19 Freq: Status: Active Protocol: Document 10/11/21 11:55 [facility] (Rec: 10/11/21 13:38 [facility] [id number]) OT-Instrumental Activities of Daily Living Home Safety Awareness Awareness of Need for Assistance at Home Good Awareness Ability to Problem Solve Emergency Able to Problem Solve Situations Meal Preparation Meal Preparation Caregiver Provides Assist Carroting Machine Offbearer Carroting Machine Offbearer Caregiver Provides Assist M6 OT- IP Functional Cognition Start: 10/11/21 13:19 Freq: Status: Active Protocol: Document 10/11/21 11:55 [facility] (Rec: 10/11/21 13:38 [facility] [id number]) Cognitive Factors Limiting Selfcare Function Cognitive Ability Level of Alertness Alert Patient Orientation Name,Place,Situation Attention Span Ability Capable of Focused Attention, Capable of Sustained Attention Ability to Follow Commands Able to Follow One Step Commands Safety Awareness Decreased Recall of Precautions,Decreased Ability to Apply Precautions, Underestimates Need for Assistance Cognitive Comments Cognitive Assessment Comments VC for back precautions initially and vc to incorporate during log rolling and ADl needs. VC for hand placement safety and use of 4ww. OT- Vision and Hearing OT- Hearing Assessment OT- Hearing Assessment WFL OT- Vision Assessment Visual Acuity Glasses All The Time M7 OT- IP Mobility and Balance Start: 10/11/21 13:19 Freq: Status: Active Protocol: Document 10/11/21 11:55 [facility] (Rec: 10/11/21 13:38 [facility] [id number]) OT- Bed Mobility Assessment Supine to Sit Supine to Sit Assist Contact Guard Assistance Sit to Supine Sit to Supine Assist Contact Guard Assistance OT-Transfer Assessment Sit to and From Stand Sit to and from Stand Standby Assistance Transfers Transfer Ability Standby Assistance,Contact Guard Assistance Technique Transfer Destination Bed,Chair Devices Transfer Assistive Devices Gait Belt,Front Wheeled Walker ,4 Wheeled Walker OT- Balance Assessment Sitting Balance and Reactions Static Sitting Balance Ability Good Dynamic Sitting Balance Ability Good Standing Balance and Reactions Static Standing Balance Ability Fair M8 OT- IP Objective Assessments Start: 10/11/21 13:19 Freq: Status: Active Protocol: Document 10/11/21 11:55 [facility] (Rec: 10/11/21 13:38 [facility] [id number]) OT-Muscle Tone Assessment Muscle Tone WNL Yes M9 OT- IP Assessment and Plan Start: 10/11/21 13:19 Freq: Status: Active Protocol: Document 10/11/21 11:55 [facility] (Rec: 10/11/21 13:38 [facility] [id number]) OT Summary Assessment and Plan Potential Rehabilitation Potential Good Analytic Complexity at Evaluation Low Summary OT Impairments Pain,Balance,Functional Mobility,Dressing,Toileting, Bathing,Toilet Transfers, Shower Transfers Progress Towards Goals Progressing Toward Goals Assessment Summary Pt low complexity and main barriers are steps, needing cues to slow down and follow his back precautions and now needing some assist for ADL and mobility needs. Pt to have a his friend's son to stay with him to assist for all needs. Goals Grooming Goal Independent Dressing Goal Independent Toileting Goal Independent Bathing Goal Independent Toilet Transfer Goal Independent Shower Transfer Goal Independent Days to Meet Goals 5 Frequency of Treatment Frequency Of Treatment Once a Day Treatment Plan OT Treatment Plan ADL Training,Functional Mobility,Patient/Family Education,Discharge Planning Other Treatment Recommendations and Next shower if still here Treatment Focus Discharge Recommendations OT Discharge Recommendations Home with 24/ Assist Available Home Equipment Needs shower chair Transportation Needs at Discharge Private Vehicle
--- NOTE | 2021-10-11 13:40 | PT.IPTN ---
Current Diagnoses Spondylolisthesis, lumbar region (10/11/21) Spinal stenosis, lumbar region with neurogenic claudication (10/11/21) Surgery Performed Operation Date: 10/10/21 10:45 Actual Procedures p L4-5,L5-S1 TLIF w. posterior instrumentation-Robot - Juan Chatman MD Physical Therapy Treatment Note M2 PT-IP Current Condition Start: 10/11/21 09:56 Freq: Status: Discharge Protocol: Document 10/11/21 09:57 [facility] (Rec: 10/11/21 10:09 [facility] [id number]) Physical Therapy Current Condition Current Condition Evaluation Date 10/11/21 Treatment Diagnosis difficulty with ambulation; post op spinal surgery; reduced BLE strength Onset Date 10/10/2021 M3 PT-IP Subjective Start: 10/11/21 09:56 Freq: Status: Discharge Protocol: Document 10/11/21 13:40 [facility] (Rec: 10/11/21 15:48 [facility] [id number]) Subjective Physical Therapy Visit Type Type Treatment Note Visit Start Time 13:40 Visit Stop Time 14:15 Total Visit Minutes 35 Number of CARROT TIER Visits 0 Physical Therapy Visit Comments Patient Comments pt is agreeable to do PT Therapy Pain Assessment Pain When Pain Assessed At Rest Pain Present Pain Present Pain Reported Location back Intensity 4 Scale Used Numeric (0 - 10) M4 PT-IP Mobility and Gait Start: 10/11/21 09:56 Freq: Status: Discharge Protocol: Document 10/11/21 13:40 [facility] (Rec: 10/11/21 15:48 [facility] [id number]) PT-Bed Mobility Assessment Rolling Type of Rolling Log Rolling Level of Assist Standby Assistance Supine to Sit Supine to Sit Standby Assistance Sit to Supine Sit to Supine Standby Assistance PT-Transfer Assessment Sit to and From Stand Sit to and from Stand Standby Assistance Equipment Transfer Assistive Device Gait Belt,4 Wheeled Walker Orthotic/Prosthetic Devices or Brace: No Transfers Transfer Destination Bed Transfer Technique Stand Step Pivot Transfer Ability Level of Assist Standby Assistance,1 Person Assistance,Use of Upper Extremities Comments Mobility Comments pt completed sit to stand from chair SBA and completed step transfer to bed using 4WW SBA. demonstrated log roll sit<> supine SBA. pt ambulated using 4WW ~ 35 ft SBA to occasional CGA. pt agreed to do stairs. pt stated that he has 2 steps to enter the house and usually holds on to the door frame to assist him. completed up/down platform step using SPC and wall rail min A and cues. pt ambulated back to the chair. pt stated that friend's son will assist him with stair climbing. educated pt on how to do ADMINISTRATOR [employer]IC[employer] and SPC use when going up the stairs. pt stated that he will let his friend know and he is confident on how he will maneuver steps. Left pt sitting on chair with nurse in room. Gait Assessment Gait Gait Assistance Required: Standby Assistance,Contact Guard Assist Distance (Feet) 35 Able to Maintain Weight Bearing Status Yes During Gait Assistive Devices Assistive Device Gait Belt,4 Wheeled Walker Orthotic/Prosthetic Devices or Brace: No Gait Deviations General Gait Pattern Decreased Stride Length, Decreased Feet Clearance Factors Limiting Gait Function Factors Limiting Gait Function Decreased Activity Tolerance, Decreased Strength,Limited Range of Motion,Pain,Poor Balance Stair Climbing Assessment Evaluation Level of Assist On Stairs Minimal Assistance,1 Person Assistance Devices Stair Climbing Assistive Devices Straight Cane Technique/Endurance Stair Climbing Direction Ascend and Descend Stair Climbing Technique Step to Step Number of Steps Climbed 1 Stair Climbing Set # Repetitions (reps) 2 M5 PT-IP Objective Assessments Start: 10/11/21 09:56 Freq: Status: Discharge Protocol: Document 10/11/21 09:57 [facility] (Rec: 10/11/21 10:09 [id number]) Orientation Orientation/Cognition Level of Alertness Alert Orientation Name,Age,Month,Year,Place, Situation Safety Awareness Understands Safety Issues Gross Range of Motion Upper Extremity ROM Assessment Within Functional Limits Lower Extremity ROM Assessment Within Functional Limits Strength Upper Extremity Strength Assessment Within Functional Limits Lower Extremity Strength Assessment Right Impaired Hip grossly 4-/5 Knee grossly 4-/5 Ankle grossly 4-/5 Comments Strength Comments Generalized BLE weakness, likely present prior to sx Coordination Assessment Gross Coordination Gross Coordination WNL Sensation Assessment Sensation Gross Sensation WNL Sensation Description Numbness Comments Sensation Comments Reports some numbness in SI area after ~30' of ambulation that resolved with seated rest break. Muscle Tone Muscle Tone WNL Yes M6 PT-IP Treatment Start: 10/11/21 09:56 Freq: Status: Discharge Protocol: Document 10/11/21 13:40 [facility] (Rec: 10/11/21 15:48 [facility] [id number]) Physical Therapy Treatment Education Education Provided Precautions,Safety M7 PT-IP Assessment and Plan Start: 10/11/21 09:56 Freq: Status: Discharge Protocol: Document 10/11/21 13:40 [facility] (Rec: 10/11/21 15:48 [facility] [id number]) PT Summary Assessment and Plan Potential Rehabilitation Potential Good Summary Impairments Pain,ROM,Strength,Balance, Coordination,Sensation,Tone, Cognition,Bed Mobility, Transfers,Gait,Activity Tolerance Progress Towards Goals Slow Progress due to Pain Assessment Summary pt requiring SBA to [facility] with ambulation using 4WW and min A with stair climbing but will have his friend's son assist him. Goals Bed Mobility Goal Independent Transfer Goal Independent,Four Wheeled Walker Gait Goal Independent,Four Wheel Walker Gait Distance 100 Other Goals Ascend/descend 2 steps without rails SBA. Days to Meet Goals 3 Frequency of Treatment Frequency Of Treatment Twice a Day Treatment Plan Physical Therapy Treatment Plan Bed Mobility Training,Transfer Training,Gait Training, Therapeutic Exercise,Balance Retraining,Post Op Education, Discharge Planning Precautions Lumbar Precautions Log Roll,No Twisting,Limit Bending,Lifting Restriction of 10 lbs,Gait Belt above Incisional Area Recommendations To Nursing Amount of Assist Needed Standby Assistance,1 Person Assist Discharge Recommendations PT Discharge Recommendations Home with 06/01 Assist Available,Home Health Transportation Needs at Discharge Private Vehicle
--- NOTE | 2021-10-11 14:23 | CM.DPNOTE ---
Initial DCP Assessment Note Pt is a 81 yo male, resident of [place], now POD#[address] spinal surgery by Dr Chatman PCP: Cony Rodriguez Payer: Balta/KELLI A Reviewed chart, pt discussed in multidisciplinary rounds this morning. Therapy has cleared pt for return home w/family and friends to assist and pt has planned for home, DC order from Ortho has already been initiated this morning. No needs expected from DC planning team although will remain available in case this changes today. NIRAJ Song
--- NOTE | 2021-10-11 14:31 | PC.NURSE ---
Discharge note: Patient discharged home per MD orders. Cleared by PT. Benavides Cath discontinued. Discussed importance of F/U with scheduled Ortho appointment, mobility precautions, signs of worsening symptoms, and new medications. Patient verbalized understanding of discharge instructions. Home via private vehicle accompanied by friend.
== END 2021-10-11 14:38 | disposition home or self-care (01) | DRG 455 ==
LOC: OR 11:34 → AC 11:34
PROVIDERS: Admitting Provider Orthopaedic Surgery Orthopaedic Surgery of the Spine; PCP Physician Assistant; Referring Provider Physical Medicine & Rehabilitation; Visit Provider Orthopaedic Surgery Orthopaedic Surgery of the Spine
PROC: 0SG00AJ Fusion of Lumbar Vertebral Joint with Interbody Fusion Device, Posterior Approach, Anterior Column, Open Approach (ICD-10-PCS; principal; 2021-10-10 10:45)
DX: M48.062 Spinal stenosis, lumbar region with neurogenic claudication (principal); M43.16 Spondylolisthesis, lumbar region; M48.07 Spinal stenosis, lumbosacral region; M46.06 Spinal enthesopathy, lumbar region; M46.07 Spinal enthesopathy, lumbosacral region; M47.816 Spondylosis without myelopathy or radiculopathy, lumbar region; M47.817 Spondylosis without myelopathy or radiculopathy, lumbosacral region; I10 Essential (primary) hypertension; H40.9 Unspecified glaucoma; Z20.822 Contact with and (suspected) exposure to COVID-19; Z87.891 Personal history of nicotine dependence
CPT/HCPCS: 36415; 72100; 76000; 85014; 85018; 87635; 97116; 97161; 97165; 97530; 97535; C9803; C1831; C9290; J0171; J0690; J1100; J1170; J2250; J2405; J2704; J3010; J3410

== ENCOUNTER 2021-11-01 11:18 | Inpatient (IN) | payer MEDICARE, SELFPAY ==
[2021-10-10 17:30] VITALS: BMI 28.0
[2021-11-01] VITALS (30 sets, daily range): BP systolic 109–177; BP diastolic 58–87; PULSE 61–111; RESP 15–22; TEMP 36.4; O2SAT 93–100; BMI 26.6
[2021-11-01] MEDS: LIDOCAINE 2% (GLYDO) 6 ML GEL TOP (11:43)
[2021-11-01 12:03] LABS: Add Manual Diff / Slide Review NO; Basophils Absolute Auto 100 /uL (0-100); Basophils Percent Auto 0.8 % (0-2); Eosinophils Absolute Auto 200 /uL (0-450); Eosinophils Percent Auto 2.3 % (2-4); Hematocrit 27.8 % (41-53); Hemoglobin 9.5 g/dL (13.5-17.5); Lymphocytes Absolute Auto 1000 /uL (1100-4500); Lymphocytes Percent Auto 13.1 % (25-40); Mean Corpuscular HGB Conc 34.2 % (30-36); Mean Corpuscular Hemoglobin 31.1 PG (26-34); Monocytes Absolute Auto 1100 /uL (0-900); Monocytes Percent Auto 14.3 % (3-14); Neutrophils Absolute Auto 5400 /uL (1500-7000); Neutrophils Percent Auto 69.5 % (50-75); Platelet Count 297 X10^3/uL (150-400); Red Blood Cell Count 3.05 X10^6/uL (4.5-5.9); Red Cell Distribution Width 13.5 % (11.6-14.8); White Blood Cell Count 7.8 X10^3/uL (4.5-11.0)
--- NOTE | 2021-11-01 12:03 | DI.CT.S_ITS ---
PROCEDURE: CT KIDNEY URETER BLADDER (KUB) INDICATIONS: renal failure TECHNIQUE: Axial sections were acquired from the lung bases to the pubic symphysis. Coronal and sagittal reformats were performed. For radiation dose reduction, the following was used: automated exposure control, adjustment of mA and/or kV according to patient size. COMPARISON: None. FINDINGS: Image quality: Excellent. Lung bases: Scattered bibasilar dependent atelectasis is seen. Heart: No significant findings. URINARY: Right Kidney: No renal stones are seen. Mild prominence of right renal collecting system. Right Ureter: Mild right hydroureter is seen extending to the level of right UVJ. No ureteral stone is noted. Left Kidney: No renal stone. Mild prominence of left renal collecting system is seen. Left Ureter: Ixvq-[id number] left-sided hydroureter extending to the level of left UVJ is seen, no distal ureteral stone. Bladder: Diffuse bladder wall thickening is seen contains a Benavides catheter. There is a 1.5 x 0.9 cm calcified stone in dependent portion of bladder lumen. No discrete bladder wall mass is noted. ABDOMEN: Liver: Unremarkable. Gallbladder: Gallbladder is distended and shows no gross abnormality. Biliary ducts: Unremarkable. Pancreas: Unremarkable. Spleen: Unremarkable. Adrenal Glands: Unremarkable. Stomach and Bowel: There is no bowel obstruction. No gastric or small bowel wall thickening. Extensive colonic diverticulosis is seen, no colonic wall thickening or mesenteric fat stranding. No abscess collection. Peritoneum: No abnormal intraperitoneal fluid. No free air. Ventral Wall: No hernia. Abdominal Nodes: No enlarged retroperitoneal or mesenteric lymph nodes. Vessels: Aorta and inferior vena cava are normal in size. PELVIS: Pelvic Organs: Enlarged prostate gland is noted with mass effect on floor of urinary bladder.. Pelvic Nodes: Unremarkable. Miscellaneous: Small bilateral inguinal hernia are seen containing fat only. Bones: No suspicious bony lesion. Postfusion changes are noted in lower lumbar spine at L4 through S1 levels. 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 No acute compression fracture. IMPRESSION: 1. No obstructing renal stone or ureteral stone. Mild left worse than right bilateral hydronephrosis and hydroureter extending to the level of UVJ Joe diffuse bladder wall thickening with pericystic fat stranding. Benavides catheter is also seen within bladder lumen. Finding likely represent chronic urinary outlet obstruction secondary to enlarged prostate gland with reflux pathology. Superimposed infectious process such as cystitis and pyelonephritis cannot be excluded. 1.5 x 0.9 cm bladder stone measures 581 Hounsfield unit in density. 2. Extensive colonic diverticulosis without CT evidence of acute diverticulitis. No abscess collection. No free fluid or free air. No bowel obstruction. Dictated by: Virgil Cai M.D. on 11/01/2021 at 12:39 Approved by: Virgil Cai M.D. on 11/01/2021 at 12:48
[2021-11-01 12:05] LABS: Appearance Urine UA CLEAR; Bilirubin Urine UA NEGATIVE (NEGATIVE); Color Urine UA YELLOW; Glucose Urine UA NEGATIVE (Negative); Ketones Urine UA NEGATIVE (NEGATIVE); Leukocyte Esterase Urine UA TRACE (NEGATIVE); Nitrite Urine UA NEGATIVE (Negative); Occult Blood Urine UA 2+ (Negative); Protein Urine UA TRACE (Negative); Specific Gravity Urine UA 1.015 (1.000-1.035); Urobilinogen Urine UA 0.2 E.U./dL (0.2)
[2021-11-01 12:17] LABS: Alanine Aminotransferase 11 IU/L (<50); Albumin Globulin Ratio 1.4 (1.0-2.8); Alkaline Phosphatase 66 U/L (38-126); Aspartate Aminotransferase 23 IU/L (17-59); Bilirubin Total 0.6 mg/dL (0.2-1.3); Calcium 8.6 mg/dL (8.4-10.2); Carbon Dioxide 12 mmol/L (22-32); Chloride 96 mmol/L (98-107); Globulin 2.8 g/dL (1.7-4.1); Glucose 120 mg/dL (80-110); HEMOLYSIS < 15 (0-50); Magnesium 2.5 mg/dL (1.6-2.3); Sodium 133 mmol/L (137-145); Total Protein 6.8 g/dL (6.3-8.2)
[2021-11-01 12:19] LABS: COVID19 -Nasal RAPID Negative (Negative)
[2021-11-01 12:26] LABS: Estimated Glomerular Filt Rate 2 mL/min (>60); Potassium 5.9 mmol/L (3.4-5.1)
[2021-11-01 12:30] LABS: Blood Urea Nitrogen 190 mg/dL (9-20)
[2021-11-01 12:32] LABS: Phosphorous 13.1 mg/dL (2.3-3.7)
--- NOTE | 2021-11-01 12:32 | ED.MALEGU ---
HPI - Male Genitourinary <Anabel C NateandreDO - Last Filed: 11/08/21 19:13> General Chief complaint: Urogenital-Male Stated complaint: States acute kidney/liver failure Time Seen by Provider: 11/01/21 11:34 Source: patient and old records reviewed Mode of arrival: Wheelchair Limitations: no limitations History of Present Illness HPI Narrative: This is a 81-year-old male with laminectomy on October 10. Patient states his back pain is somewhat better but he also has some head pain still. He states he has some mild pain right now lying in the bed. He states he has not been taking anything for pain at home. He has noticed some trouble urinating he was urinating almost hourly in the last several days. He felt like he was not emptying his bladder. He was given some medication to help with this. He was constipated immediately after his surgery but was on stool softeners and states bowel movements have normalized. He denies any anterior abdominal pain. He denies any fevers, no nausea or vomiting. No chest pain or shortness of breath. He is on 2 antihypertensives but does not know what they are, he denies any blood thinners or other medications currently. He states besides the laminectomy with Dr. Cai, he had left shoulder surgery 6 years ago and cataract surgery 8 years ago. No known drug allergies. No tobacco, he drinks an alcoholic drink 1 or 2 times nightly, no illicit. He is currently seeing a PA named Earle at [facility]. He was sent in today because of increasing peripheral edema and they had ordered outpatient labs yesterday which showed a creatinine of 16 with a GFR of 3 and a potassium of 5.8. Was also noted patient's hemoglobin was 9 and had been 13 on September 13, at that time creatinine was 1.2 with a GFR of 61. Related Data Home Medications Medication Instructions Recorded Confirmed acetaminophen 500 mg capsule 500 mg PO DAILY PRN 12/04/20 11/01/21 amlodipine 5 mg tablet 5 mg PO DAILY 12/04/20 11/01/21 dorzolamide 22.3 mg-timolol 6.8 1 drp EYE-BOTH BID ml 12/04/20 11/01/21 mg/mL eye drops metoprolol succinate 50 mg 50 mg PO DAILY 12/04/20 11/01/21 tablet,extended release 24 hr montelukast 10 mg tablet 10 mg PO DAILY 12/04/20 11/01/21 gabapentin 300 mg capsule 300 mg PO .COMPLEX PRN 10/02/21 11/01/21 cyclobenzaprine 10 mg tablet 10 mg PO TID PRN 11/01/21 11/01/21 latanoprostene bunod 0.024 % eye 1 drp OPHTHALMIC (EYE) BEDTIME 11/01/21 11/01/21 drops (Vyzulta) oxycodone 5 mg tablet 5 mg PO BEDTIME PRN 11/01/21 11/01/21 Previous Rx's Medication Instructions Recorded docusate sodium 100 mg capsule 100 mg PO BID PRN #60 cap 10/11/21 hydrocodone 10 mg-acetaminophen 1 tab PO Q4-6H PRN #40 tab 10/11/21 325 mg tablet ascorbic acid (vitamin C) 500 mg 500 mg PO BID #60 tab 11/05/21 tablet ferrous sulfate 325 mg (65 mg 325 mg PO DAILY #30 tab 11/05/21 iron) tablet finasteride 5 mg tablet 5 mg PO DAILY #30 tab 11/05/21 polyethylene glycol 3350 17 gram 17 g PO DAILY #30 ea 11/05/21 oral powder packet (Miralax) sennosides 8.6 mg tablet (senna) 8.6 mg PO BEDTIME #30 tab 11/05/21 tamsulosin 0.4 mg capsule (Flomax) 0.4 mg PO DAILY #30 cap 11/05/21 vitamin B complex-vitamin C-folic 1 tab PO DAILY #30 tab 11/05/21 acid 0.8 mg tablet (Nephro-Karuna) Allergies Allergy/AdvReac Type Severity Reaction Status Date / Time No Known Drug Allergies Allergy Verified 10/10/21 09:11 Review of Systems <Anabel Lawson DO - Last Filed: 11/08/21 19:13> Review of Systems ROS Unobtainable: All systems reviewed & are unremarkable except as noted in HPI and below Patient History <Anabel Lawson DO - Last Filed: 11/08/21 19:13> Medical History Depression Glaucoma Hearing impaired HNP (herniated nucleus pulposus), lumbar HTN (hypertension) Lumbar foraminal stenosis Sciatica Seasonal allergies Skin rash Spinal stenosis Spondylolisthesis at L4-L5 level Stomach ulcer (1996) Surgical History Hx of appendectomy Hx of bilateral cataract extraction Hx of shoulder surgery Hx of tonsillectomy Family History (Updated 11/02/21 @ 00:09 by Reanna Dimas MD) Father due to natural causes Mother due to natural causes Dementia Brother Kidney lesion Social History household members: none Smoking Status: Former smoker alcohol intake: current Smoking Status: Former smoker alcohol intake frequency: 3 or more drinks per day Substance Use Type: does not use Exam <Anabel Lawson DO - Last Filed: 11/08/21 19:13> Narrative Exam Narrative: GENERAL: Alert and oriented x three, male in mild distress. HEENT: Head normocephalic, atraumatic, EOMI, pupils reactive, face symmetric, moist mucous membranes NECK: Supple, full range of motion CARDIOVASCULAR: Regular rate and rhythm without murmurs, rubs or gallops. RESPIRATORY: Breath sounds equal bilaterally, no wheezes rales or rhonchi. ABDOMEN: Soft, nontender. Normoactive bowel sounds all 4 quadrants. No guarding or rebound, rigidity, no mass : No CVA tenderness. BACK: No cervical, thoracic or lumbar vertebral point tenderness. Patient has mildly decreased range of motion. EXTREMITIES: Normal range of motion, no clubbing or edema. Neurovascularly intact NEUROLOGICAL: Cranial nerves II through XII grossly intact. Moving all extremities SKIN: Warm, dry, no petechiae, no rashes or lesions. Initial Vital Signs Initial Vital Signs: Vital Signs Blood Pressure 109/72 11/01/21 11:31 <Selina Li MD - Last Filed: 11/02/21 03:38> Initial Vital Signs Initial Vital Signs: Vital Signs Blood Pressure 109/72 11/01/21 11:31 Course <Anabel Lawson DO - Last Filed: 11/08/21 19:13> Orders Ordered: Discontinued Medications Acetaminophen (Acetaminophen 325 Mg Tablet) 325 mg PO DAILY PRN PRN Reason: RIBBON INKER Last Admin: 11/04/21 05:15 Dose: 325 mg Documented by: Admin: 11/03/21 00:31 Dose: 325 mg Documented by: BENEDICT Hydrocodone Bitart/Acetaminophen (Hydrocodone/Acet 10/325 Tablet) 1 tab PO Q4H PRN PRN Reason: pain (scale score 7-10) Amlodipine Besylate (Amlodipine 5 Mg Tablet) 5 mg PO DAILY [facility] Last Admin: 11/05/21 08:18 Dose: 5 mg Documented by: Admin: 11/04/21 08:42 Dose: 5 mg Documented by: Admin: 11/03/21 08:35 Dose: 5 mg Documented by: Admin: 11/02/21 09:08 Dose: 5 mg Documented by: MILA Ascorbic Acid (Ascorbic Acid 500 Mg Tablet) 500 mg PO BID [facility] Last Admin: 11/05/21 08:18 Dose: 500 mg Documented by: Admin: 11/04/21 20:22 Dose: 500 mg Documented by: Admin: 11/04/21 08:41 Dose: 500 mg Documented by: BERYL Calcium Acetate (Calcium Acetate 667 Mg Capsule) 1,334 mg PO TID [facility] Last Admin: 11/03/21 16:52 Dose: 1,334 mg Documented by: Admin: 11/03/21 08:35 Dose: 1,334 mg Documented by: Admin: 11/02/21 21:21 Dose: 1,334 mg Documented by: Admin: 11/02/21 14:15 Dose: 1,334 mg Documented by: Admin: 11/02/21 09:02 Dose: 1,334 mg Documented by: MILA Cyclobenzaprine HCl (Cyclobenzaprine 10 Mg Tablet) 10 mg PO TID PRN PRN Reason: Pain (Scale Score 1-3) Cyclobenzaprine HCl (Cyclobenzaprine 10 Mg Tablet) 10 mg PO DAILY PRN PRN Reason: Muscle Spasm Last Admin: 11/03/21 21:04 Dose: 10 mg Documented by: ANDREAS Docusate Sodium (Docusate 100 Mg Capsule) 100 mg PO BID [facility] Admin: 11/05/21 08:22 Dose: Not Given Documented by: Admin: 11/04/21 20:23 Dose: Not Given Documented by: Admin: 11/04/21 08:42 Dose: 100 mg Documented by: Admin: 11/03/21 21:04 Dose: 100 mg Documented by: Admin: 11/03/21 08:35 Dose: 100 mg Documented by: Admin: 11/02/21 21:21 Dose: 100 mg Documented by: Admin: 11/02/21 09:08 Dose: 100 mg Documented by: MILA Dorzolamide/Timolol (Dorzolamide/Timolol Ophth 10 Ml) 1 drops EYE-BOTH BID [facility] Last Admin: 11/05/21 08:20 Dose: 1 drops Documented by: Admin: 11/04/21 20:23 Dose: 1 drops Documented by: Admin: 11/04/21 08:41 Dose: 1 drops Documented by: Admin: 11/03/21 21:05 Dose: 1 drops Documented by: Admin: 11/03/21 08:35 Dose: 1 drops Documented by: Admin: 11/02/21 21:21 Dose: 1 drops Documented by: Admin: 11/02/21 09:02 Dose: 1 drops Documented by: MILA Enoxaparin Sodium (Enoxaparin 40 Mg/0.4 Ml Syringe) 40 mg SUBCUT DAILY [facility] Finasteride (Finasteride 5 Mg Tablet) 5 mg PO DAILY [facility] Admin: 11/05/21 08:19 Dose: 5 mg Documented by: Admin: 11/04/21 08:42 Dose: 5 mg Documented by: Admin: 11/03/21 08:35 Dose: 5 mg Documented by: Admin: 11/02/21 10:48 Dose: 5 mg Documented by: MILA Furosemide (Furosemide 20 Mg Tablet) 20 mg PO BID [facility] Heparin Sodium (Porcine) (Heparin 5,000 Unit/Ml Vial) 5,000 unit SUBCUT BID [facility] Last Admin: 11/02/21 09:08 Dose: 5,000 unit Documented by: MILA Hydrochlorothiazide (Hydrochlorothiazide 25 Mg Tablet) 25 mg PO DAILY [facility] Sodium Chloride (Normal Saline 0.9%) 1,000 mls @ 1,000 mls/hr IV BOLUS ONE Stop: 11/01/21 13:32 Last Infusion: 11/01/21 14:47 Dose: 0 mls/hr Documented by: Admin: 11/01/21 12:48 Dose: 1,000 mls/hr Documented by: MARYLU Sodium Chloride (Normal Saline 0.9%) 1,000 mls @ 150 mls/hr IV CONT [facility] Last Admin: 11/02/21 06:44 Dose: 150 mls/hr Documented by: Infusion: 11/02/21 06:44 Dose: 150 mls/hr Documented by: Admin: 11/02/21 00:16 Dose: 150 mls/hr Documented by: Infusion: 11/01/21 16:47 Dose: 0 mls/hr Documented by: Admin: 11/01/21 15:59 Dose: 150 mls/hr Documented by: NIYA Ceftriaxone Sodium 1,000 mg/ (Sodium Chloride) 100 mls @ 200 mls/hr IV NOW ONE Stop: 11/01/21 16:45 Last Infusion: 11/01/21 18:05 Dose: 0 mls/hr Documented by: Admin: 11/01/21 16:54 Dose: 200 mls/hr Documented by: NIYA Sodium Chloride (Normal Saline 0.45%) 1,000 mls @ 150 mls/hr IV CONT AUDREY Last Infusion: 11/02/21 00:20 Dose: 0 mls/hr Documented by: Admin: 11/01/21 16:55 Dose: 150 mls/hr Documented by: NIYA Dextrose/Sodium Chloride (Dextrose 5%-0.9% Ns) 1,000 mls @ 100 mls/hr IV CONT AUDREY Last Admin: 11/02/21 02:27 Dose: Not Given Documented by: DINA Sodium Bicarbonate 150 meq/ (Dextrose) 1,150 mls @ 100 mls/hr IV CONT A[facility]Y Last Admin: 11/03/21 09:36 Dose: 100 mls/hr Documented by: Infusion: 11/03/21 07:52 Dose: 100 mls/hr Documented by: Admin: 11/02/21 20:22 Dose: 100 mls/hr Documented by: Infusion: 11/02/21 20:22 Dose: 100 mls/hr Documented by: Admin: 11/02/21 09:07 Dose: 100 mls/hr Documented by: MILA Ceftriaxone Sodium 1,000 mg/ (Sodium Chloride) 100 mls @ 200 mls/hr IV Q24H [facility] Last Infusion: 11/03/21 17:24 Dose: 0 mls/hr Documented by: Admin: 11/03/21 16:53 Dose: 200 mls/hr Documented by: Infusion: 11/02/21 21:25 Dose: 0 mls/hr Documented by: Admin: 11/02/21 16:58 Dose: 200 mls/hr Documented by: MILA POTASSIUM CHLORIDE IN WATER (Potassium Cl 10 Meq/100 Ml Opal) 10 meq in 100 mls @ 100 mls/hr IV Q1H [facility] Stop: 11/03/21 16:59 Last Infusion: 11/03/21 14:27 Dose: 0 mls/hr Documented by: Admin: 11/03/21 13:08 Dose: Not Given Documented by: Admin: 11/03/21 13:08 Dose: Not Given Documented by: Admin: 11/03/21 13:08 Dose: Not Given Documented by: Admin: 11/03/21 13:07 Dose: Not Given Documented by: Admin: 11/03/21 12:57 Dose: 100 mls/hr Documented by: Infusion: 11/03/21 12:57 Dose: 100 mls/hr Documented by: Admin: 11/03/21 12:05 Dose: 100 mls/hr Documented by: PRAFUL Potassium Chloride/Sodium Chloride (Ns With Kcl 20 Meq) 1,000 mls @ 84 mls/hr IV CONT AUDREY Last Admin: 11/04/21 05:45 Dose: 84 mls/hr Documented by: Infusion: 11/04/21 05:45 Dose: 84 mls/hr Documented by: Admin: 11/03/21 18:00 Dose: 84 mls/hr Documented by: PRAFUL Iron Sucrose 200 mg/ Sodium (Chloride) 110 mls @ 220 mls/hr IV NOW ONE Stop: 11/04/21 07:25 Last Admin: 11/04/21 08:41 Dose: 220 mls/hr Documented by: BERYL Magnesium Sulfate (Magnesium Sulfate) 2 gm in 50 mls @ 25 mls/hr IV NOW ONE Stop: 11/04/21 13:29 Last Admin: 11/04/21 11:18 Dose: 25 mls/hr Documented by: URSULA Cosigned by: BIRD Magnesium Sulfate (Magnesium Sulfate) 2 gm in 50 mls @ 25 mls/hr IV NOW ONE Stop: 11/05/21 09:19 Last Admin: 11/05/21 08:05 Dose: 25 mls/hr Documented by: FABIOLA Cosigned by: MARQUEZ Lidocaine HCl (Lidocaine 2% (Glydo) 6 Ml Gel) 6 ml TOP NOW ONE Stop: 11/01/21 11:38 Last Admin: 11/01/21 11:43 Dose: 6 ml Documented by: MARYLU Lorazepam (Lorazepam 2 Mg/Ml Inj) 0.5 mg IV NOW ONE Stop: 11/01/21 20:29 Last Admin: 11/01/21 20:38 Dose: 0.5 mg Documented by: DOUGLAS Losartan Potassium (Losartan 50 Mg Tablet) 100 mg PO DAILY [facility] Montelukast Sodium (Montelukast 10 Mg Tablet) 10 mg PO DAILY [facility] Last Admin: 11/05/21 08:19 Dose: 10 mg Documented by: Admin: 11/04/21 08:42 Dose: 10 mg Documented by: Admin: 11/03/21 08:35 Dose: 10 mg Documented by: Admin: 11/02/21 09:08 Dose: 10 mg Documented by: MILA Morphine Sulfate (Morphine 4 Mg/Ml Inj) 4 mg IV NOW ONE Stop: 11/01/21 20:04 Last Admin: 11/01/21 20:12 Dose: 4 mg Documented by: NIYA Naloxone HCl (Naloxone 0.4 Mg/Ml Vial) 0.2 mg IV Q2MIN PRN PRN Reason: Opiate Reversal Non-Formulary Medication (Latanoprostene Bunod [Vyzulta]) 1 drop ophthalmic (eye) BEDTIME [facility] Non-Formulary Medication (Latanoprostene Bunod [Vyzulta]) 1 drop EYE-BOTH BEDTIME [facility] Last Admin: 11/04/21 20:22 Dose: Not Given Documented by: Admin: 11/03/21 21:06 Dose: Not Given Documented by: Admin: 11/02/21 21:21 Dose: Not Given Documented by: BENEDICT Oxycodone HCl (Oxycodone Ir 5 Mg Tablet) 2.5 mg PO NOW ONE Stop: 11/03/21 05:45 Last Admin: 11/03/21 06:10 Dose: 2.5 mg Documented by: DINA Potassium Chloride (Potassium Chloride 20 Meq Tab) 40 meq PO Q4H [facility] Stop: 11/03/21 21:01 Last Admin: 11/03/21 21:04 Dose: 40 meq Documented by: Admin: 11/03/21 16:52 Dose: 40 meq Documented by: Admin: 11/03/21 12:57 Dose: 40 meq Documented by: PRAFUL Potassium Phos/Sodium Phos (Sodium,Potassium Phosphates Packet) 2 each PO Q4H [facility] Stop: 11/04/21 11:31 Last Admin: 11/04/21 13:15 Dose: 2 each Documented by: Admin: 11/04/21 08:42 Dose: 2 each Documented by: BERYL Potassium Phos/Sodium Phos (Sodium,Potassium Phosphates Packet) 2 each PO NOW ONE Stop: 11/05/21 07:22 Last Admin: 11/05/21 08:05 Dose: 2 each Documented by: FABIOLA Tamsulosin HCl (Tamsulosin 0.4 Mg Capsule) 0.8 mg PO DAILY [facility] Last Admin: 11/05/21 08:19 Dose: 0.8 mg Documented by: Admin: 11/04/21 08:41 Dose: 0.8 mg Documented by: Admin: 11/03/21 08:35 Dose: 0.8 mg Documented by: Admin: 11/02/21 10:48 Dose: 0.8 mg Documented by: MILA Vitamin B Complex/Vit C/Folic Acid (Nephro-Karuna Rx Tablet) 1 tab PO DAILY [facility] Last Admin: 11/05/21 08:20 Dose: 1 tab Documented by: Admin: 11/04/21 08:42 Dose: 1 tab Documented by: BERYL Reevaluation(s) Reevaluation #1: Discussed initial findings with patient that he may need transfer will chat with Neurology and discussed recommendations with patient. Time: 15:00 Reevaluation #2: Patient has had 8L diuresed in department. BPs have been stable, urine was initially cola covered, yellow and now has hematuria. Patient has had some back discomfort. Given a dose of pain medication in department. Discussed plan for repeat BMP if continuing to improve appropriately with a rectal lytes will likely be able to keep ear versus transfer. Patient is aware of the current plan. Time: 20:14 Consultations Consultation #1: Dr. Murillo, nephrology at [facility]. Feels patient likely does not need transfer. Particularly with his diuresis. He would recommend rechecking BMP q.6 hours, he believes potassium and magnesium will decrease with diuresis and sodium will begin to improve. He would recommend once sodium is 135 half normal saline at 100 mL -150 mL/hour. Time: 15:57 Consultation #2: Dr. Noam Glass, hospitalist. Is reluctant to admit with creatinine of 21 and a GFR of 2 with potassium of 5.9 and asked that we transfer. If patient's labs are improving while seeking placement is unlikely to be able to transfer acutely they would be willing to reconsider. Vital Signs Vital signs: Vital Signs - 8 hr 11/01/21 20:00 11/01/21 20:30 11/01/21 21:33 Pulse Rate 95 H 99 H 109 H Respiratory Rate 20 Blood Pressure 145/67 H 177/85 H Pulse Oximetry 100 99 93 11/01/21 21:35 11/01/21 22:00 11/01/21 22:01 Pulse Rate 106 H 93 H 93 H Respiratory Rate 18 15 19 Blood Pressure 156/72 H 124/60 Pulse Oximetry 97 98 98 11/01/21 22:30 11/01/21 23:00 Pulse Rate 89 90 Respiratory Rate 22 22 Blood Pressure 128/66 134/61 Pulse Oximetry 96 96 <Selina Li MD - Last Filed: 11/02/21 03:38> Orders Ordered: Discontinued Medications Acetaminophen (Acetaminophen 325 Mg Tablet) 325 mg PO DAILY PRN PRN Reason: RIBBON INKER Last Admin: 11/04/21 05:15 Dose: 325 mg Documented by: Admin: 11/03/21 00:31 Dose: 325 mg Documented by: BENEDICT Hydrocodone Bitart/Acetaminophen (Hydrocodone/Acet 10/325 Tablet) 1 tab PO Q4H PRN PRN Reason: pain (scale score 7-10) Amlodipine Besylate (Amlodipine 5 Mg Tablet) 5 mg PO DAILY [facility] Admin: 11/05/21 08:18 Dose: 5 mg Documented by: Admin: 11/04/21 08:42 Dose: 5 mg Documented by: Admin: 11/03/21 08:35 Dose: 5 mg Documented by: Admin: 11/02/21 09:08 Dose: 5 mg Documented by: MILA Ascorbic Acid (Ascorbic Acid 500 Mg Tablet) 500 mg PO BID [facility] Admin: 11/05/21 08:18 Dose: 500 mg Documented by: Admin: 11/04/21 20:22 Dose: 500 mg Documented by: Admin: 11/04/21 08:41 Dose: 500 mg Documented by: BERYL Calcium Acetate (Calcium Acetate 667 Mg Capsule) 1,334 mg PO TID [facility] Admin: 11/03/21 16:52 Dose: 1,334 mg Documented by: Admin: 11/03/21 08:35 Dose: 1,334 mg Documented by: Admin: 11/02/21 21:21 Dose: 1,334 mg Documented by: Admin: 11/02/21 14:15 Dose: 1,334 mg Documented by: Admin: 11/02/21 09:02 Dose: 1,334 mg Documented by: MILA Cyclobenzaprine HCl (Cyclobenzaprine 10 Mg Tablet) 10 mg PO TID PRN PRN Reason: Pain (Scale Score 1-3) Cyclobenzaprine HCl (Cyclobenzaprine 10 Mg Tablet) 10 mg PO DAILY PRN PRN Reason: Muscle Spasm Last Admin: 11/03/21 21:04 Dose: 10 mg Documented by: ANDREAS Docusate Sodium (Docusate 100 Mg Capsule) 100 mg PO BID [facility] Admin: 11/05/21 08:22 Dose: Not Given Documented by: Admin: 11/04/21 20:23 Dose: Not Given Documented by: Admin: 11/04/21 08:42 Dose: 100 mg Documented by: Admin: 11/03/21 21:04 Dose: 100 mg Documented by: Admin: 11/03/21 08:35 Dose: 100 mg Documented by: Admin: 11/02/21 21:21 Dose: 100 mg Documented by: Admin: 11/02/21 09:08 Dose: 100 mg Documented by: MILA Dorzolamide/Timolol (Dorzolamide/Timolol Ophth 10 Ml) 1 drops EYE-BOTH BID [facility] Last Admin: 11/05/21 08:20 Dose: 1 drops Documented by: Admin: 11/04/21 20:23 Dose: 1 drops Documented by: Admin: 11/04/21 08:41 Dose: 1 drops Documented by: Admin: 11/03/21 21:05 Dose: 1 drops Documented by: Admin: 11/03/21 08:35 Dose: 1 drops Documented by: Admin: 11/02/21 21:21 Dose: 1 drops Documented by: Admin: 11/02/21 09:02 Dose: 1 drops Documented by: MILA Enoxaparin Sodium (Enoxaparin 40 Mg/0.4 Ml Syringe) 40 mg SUBCUT DAILY [facility] Finasteride (Finasteride 5 Mg Tablet) 5 mg PO DAILY [facility] Last Admin: 11/05/21 08:19 Dose: 5 mg Documented by: Admin: 11/04/21 08:42 Dose: 5 mg Documented by: Admin: 11/03/21 08:35 Dose: 5 mg Documented by: Admin: 11/02/21 10:48 Dose: 5 mg Documented by: MILA Furosemide (Furosemide 20 Mg Tablet) 20 mg PO BID [facility] Heparin Sodium (Porcine) (Heparin 5,000 Unit/Ml Vial) 5,000 unit SUBCUT BID [facility] Last Admin: 11/02/21 09:08 Dose: 5,000 unit Documented by: MILA Hydrochlorothiazide (Hydrochlorothiazide 25 Mg Tablet) 25 mg PO DAILY [facility] Sodium Chloride (Normal Saline 0.9%) 1,000 mls @ 1,000 mls/hr IV BOLUS ONE Stop: 11/01/21 13:32 Last Infusion: 11/01/21 14:47 Dose: 0 mls/hr Documented by: Admin: 11/01/21 12:48 Dose: 1,000 mls/hr Documented by: MARYLU Sodium Chloride (Normal Saline 0.9%) 1,000 mls @ 150 mls/hr IV CONT AUDREY Last Admin: 11/02/21 06:44 Dose: 150 mls/hr Documented by: Infusion: 11/02/21 06:44 Dose: 150 mls/hr Documented by: Admin: 11/02/21 00:16 Dose: 150 mls/hr Documented by: Infusion: 11/01/21 16:47 Dose: 0 mls/hr Documented by: Admin: 11/01/21 15:59 Dose: 150 mls/hr Documented by: NIYA Ceftriaxone Sodium 1,000 mg/ (Sodium Chloride) 100 mls @ 200 mls/hr IV NOW ONE Stop: 11/01/21 16:45 Last Infusion: 11/01/21 18:05 Dose: 0 mls/hr Documented by: Admin: 11/01/21 16:54 Dose: 200 mls/hr Documented by: NIYA Sodium Chloride (Normal Saline 0.45%) 1,000 mls @ 150 mls/hr IV CONT AUDREY Last Infusion: 11/02/21 00:20 Dose: 0 mls/hr Documented by: Admin: 11/01/21 16:55 Dose: 150 mls/hr Documented by: NIYA Dextrose/Sodium Chloride (Dextrose 5%-0.9% Ns) 1,000 mls @ 100 mls/hr IV CONT AUDREY Last Admin: 11/02/21 02:27 Dose: Not Given Documented by: DINA Sodium Bicarbonate 150 meq/ (Dextrose) 1,150 mls @ 100 mls/hr IV CONT AUDREY Last Admin: 11/03/21 09:36 Dose: 100 mls/hr Documented by: Infusion: 11/03/21 07:52 Dose: 100 mls/hr Documented by: Admin: 11/02/21 20:22 Dose: 100 mls/hr Documented by: Infusion: 11/02/21 20:22 Dose: 100 mls/hr Documented by: Admin: 11/02/21 09:07 Dose: 100 mls/hr Documented by: MILA Ceftriaxone Sodium 1,000 mg/ (Sodium Chloride) 100 mls @ 200 mls/hr IV Q24H [facility] Last Infusion: 11/03/21 17:24 Dose: 0 mls/hr Documented by: Admin: 11/03/21 16:53 Dose: 200 mls/hr Documented by: Infusion: 11/02/21 21:25 Dose: 0 mls/hr Documented by: Admin: 11/02/21 16:58 Dose: 200 mls/hr Documented by: MILA POTASSIUM CHLORIDE IN WATER (Potassium Cl 10 Meq/100 Ml Opal) 10 meq in 100 mls @ 100 mls/hr IV Q1H [facility] Stop: 11/03/21 16:59 Last Infusion: 11/03/21 14:27 Dose: 0 mls/hr Documented by: Admin: 11/03/21 13:08 Dose: Not Given Documented by: Admin: 11/03/21 13:08 Dose: Not Given Documented by: Admin: 11/03/21 13:08 Dose: Not Given Documented by: Admin: 11/03/21 13:07 Dose: Not Given Documented by: Admin: 11/03/21 12:57 Dose: 100 mls/hr Documented by: Infusion: 11/03/21 12:57 Dose: 100 mls/hr Documented by: Admin: 11/03/21 12:05 Dose: 100 mls/hr Documented by: PRAFUL Potassium Chloride/Sodium Chloride (Ns With Kcl 20 Meq) 1,000 mls @ 84 mls/hr IV CONT [facility] Last Admin: 11/04/21 05:45 Dose: 84 mls/hr Documented by: Infusion: 11/04/21 05:45 Dose: 84 mls/hr Documented by: Admin: 11/03/21 18:00 Dose: 84 mls/hr Documented by: PRAFUL Iron Sucrose 200 mg/ Sodium (Chloride) 110 mls @ 220 mls/hr IV NOW ONE Stop: 11/04/21 07:25 Last Admin: 11/04/21 08:41 Dose: 220 mls/hr Documented by: BERYL Magnesium Sulfate (Magnesium Sulfate) 2 gm in 50 mls @ 25 mls/hr IV NOW ONE Stop: 11/04/21 13:29 Last Admin: 11/04/21 11:18 Dose: 25 mls/hr Documented by: URSULA Cosigned by: BIRD Magnesium Sulfate (Magnesium Sulfate) 2 gm in 50 mls @ 25 mls/hr IV NOW ONE Stop: 11/05/21 09:19 Last Admin: 11/05/21 08:05 Dose: 25 mls/hr Documented by: FABIOLA Cosigned by: MARQUEZ Lidocaine HCl (Lidocaine 2% (Glydo) 6 Ml Gel) 6 ml TOP NOW ONE Stop: 11/01/21 11:38 Last Admin: 11/01/21 11:43 Dose: 6 ml Documented by: [email or web address] Lorazepam (Lorazepam 2 Mg/Ml Inj) 0.5 mg IV NOW ONE Stop: 11/01/21 20:29 Last Admin: 11/01/21 20:38 Dose: 0.5 mg Documented by: DOUGLAS Losartan Potassium (Losartan 50 Mg Tablet) 100 mg PO DAILY [facility] Montelukast Sodium (Montelukast 10 Mg Tablet) 10 mg PO DAILY [facility] Last Admin: 11/05/21 08:19 Dose: 10 mg Documented by: Admin: 11/04/21 08:42 Dose: 10 mg Documented by: Admin: 11/03/21 08:35 Dose: 10 mg Documented by: Admin: 11/02/21 09:08 Dose: 10 mg Documented by: MILA Morphine Sulfate (Morphine 4 Mg/Ml Inj) 4 mg IV NOW ONE Stop: 11/01/21 20:04 Last Admin: 11/01/21 20:12 Dose: 4 mg Documented by: NIYA Naloxone HCl (Naloxone 0.4 Mg/Ml Vial) 0.2 mg IV Q2MIN PRN PRN Reason: Opiate Reversal Non-Formulary Medication (Latanoprostene Bunod [Vyzulta]) 1 drop ophthalmic (eye) [facility] [facility] Non-Formul[facility] (Latanoprostene Bunod [Vyzulta]) 1 drop EYE-BOTH BEDTIME [facility] Last Admin: 11/04/21 20:22 Dose: Not Given Documented by: Admin: 11/03/21 21:06 Dose: Not Given Documented by: Admin: 11/02/21 21:21 Dose: Not Given Documented by: BENEDICT Oxycodone HCl (Oxycodone Ir 5 Mg Tablet) 2.5 mg PO NOW ONE Stop: 11/03/21 05:45 Last Admin: 11/03/21 06:10 Dose: 2.5 mg Documented by: DINA Potassium Chloride (Potassium Chloride 20 Meq Tab) 40 meq PO Q4H [facility] Stop: 11/03/21 21:01 Last Admin: 11/03/21 21:04 Dose: 40 meq Documented by: Admin: 11/03/21 16:52 Dose: 40 meq Documented by: Admin: 11/03/21 12:57 Dose: 40 meq Documented by: PRAFUL Potassium Phos/Sodium Phos (Sodium,Potassium Phosphates Packet) 2 each PO Q4H [facility] Stop: 11/04/21 11:31 Last Admin: 11/04/21 13:15 Dose: 2 each Documented by: Admin: 11/04/21 08:42 Dose: 2 each Documented by: BERYL Potassium Phos/Sodium Phos (Sodium,Potassium Phosphates Packet) 2 each PO NOW ONE Stop: 11/05/21 07:22 Last Admin: 11/05/21 08:05 Dose: 2 each Documented by: FABIOLA Tamsulosin HCl (Tamsulosin 0.4 Mg Capsule) 0.8 mg PO DAILY [facility] Last Admin: 11/05/21 08:19 Dose: 0.8 mg Documented by: Admin: 11/04/21 08:41 Dose: 0.8 mg Documented by: Admin: 11/03/21 08:35 Dose: 0.8 mg Documented by: Admin: 11/02/21 10:48 Dose: 0.8 mg Documented by: MILA Vitamin B Complex/Vit C/Folic Acid (Nephro-Karuna Rx Tablet) 1 tab PO DAILY [facility] Last Admin: 11/05/21 08:20 Dose: 1 tab Documented by: Admin: 11/04/21 08:42 Dose: 1 tab Documented by: BERYL Vital Signs Vital signs: Vital Signs - 8 hr 11/01/21 20:00 11/01/21 20:30 11/01/21 21:33 Pulse Rate 95 H 99 H 109 H Respiratory Rate 20 Blood Pressure 145/67 H 177/85 H Pulse Oximetry 100 99 93 05/19/22 21:35 11/01/21 22:00 11/01/21 22:01 Pulse Rate 106 H 93 H 93 H Respiratory Rate 18 15 19 Blood Pressure 156/72 H 124/60 Pulse Oximetry 97 98 98 11/01/21 22:30 11/01/21 23:00 Pulse Rate 89 90 Respiratory Rate 22 22 Blood Pressure 128/66 134/61 Pulse Oximetry 96 96 MDM - Male Genitourinary <Anabel Lawson DO - Last Filed: 11/08/21 19:13> Lab Data Result diagrams: 11/05/21 04:45 11/05/21 04:45 Labs: Lab Results 11/01/21 11/01/21 11/01/21 Range/Units 11:35 11:35 11:35 WBC 7.8 (4.5-11.0) X10^3/uL RBC 3.05 L (4.5-5.9) X10^6/uL Hgb 9.5 L (13.5-17.5) g/dL Hct 27.8 L (41-53) % MCV 91.0 (80-100) fL MCH 31.1 (26-34) PG MCHC 34.2 (30-36) % RDW 13.5 (11.6-14.8) % Plt Count 297 (150-400) X10^3/uL Neut % (Auto) 69.5 (50-75) % Lymph % (Auto) 13.1 L (25-40) % Wake % (Auto) 14.3 H (3-14) % Eos % (Auto) 2.3 (2-4) % Baso % (Auto) 0.8 (0-2) % Neut # (Auto) 5400 (1199-2307) /uL Lymph # (Auto) 1000 L (3267-7701) /uL Wake # (Auto) 1100 H (0-900) /uL Eos # (Auto) 200 (0-450) /uL Baso # (Auto) 100 (0-100) /uL Sodium 133 L (137-145) mmol/L Potassium 5.9 H (3.4-5.1) mmol/L Chloride 96 L (98-107) mmol/L Carbon Dioxide 12 L (22-32) mmol/L BUN 190 H* (9-20) mg/dL Creatinine 21.0 H* (0.66-1.25) mg/dL Estimated GFR 2 L (>60) mL/min BUN/Creatinine Ratio 9.0 (6-22) Glucose 120 H (80-110) mg/dL Calcium 8.6 (8.4-10.2) mg/dL Phosphorus (2.3-3.7) mg/dL Magnesium (1.6-2.3) mg/dL Total Bilirubin 0.6 (0.2-1.3) mg/dL AST 23 (17-59) IU/L ALT 11 (<50) IU/L Alkaline Phosphatase 66 (38-126) U/L Total Protein 6.8 (6.3-8.2) g/dL Albumin 4.0 (3.5-5.0) g/dL Globulin 2.8 (1.7-4.1) g/dL Albumin/Globulin Ratio 1.4 (1.0-2.8) Urine Color Yellow Urine Appearance Clear Urine pH 5.0 (4.5-8.0) Ur Specific [place] 1.015 (1.000-1.035) Urine Protein Trace H (Negative) Urine Glucose (UA) Negative (Negative) g/dL Urine Ketones Negative (NEGATIVE) Urine Occult Blood 2+ H (Negative) Urine Nitrate Negative (Negative) Urine Bilirubin Negative (NEGATIVE) Urine Urobilinogen 0.2 (0.2) E.U./dL Ur Leukocyte Esterase Trace H (NEGATIVE) Urine RBC 10-30/hpf H (0-5/HPF) Urine WBC 1-5/hpf (0-5/HPF) Ur Squamous Epith Cells 1-5 /hpf (0-5/HPF) Urine Bacteria Few (2-10) H (None) Urine Sperm Few present Ur Culture Indicated? Specimen cultured Ur Random Sodium (30-90) mmol/L Urine Creatinine mg/dL SARS-CoV-2 (PCR) (Negative) Blood Type Antibody Screen 11/01/21 11/01/21 11/01/21 Range/Units 11:35 11:35 11:35 WBC (4.5-11.0) X10^3/uL RBC (4.5-5.9) X10^6/uL Hgb (13.5-17.5) g/dL Hct (41-53) % MCV (80-100) fL MCH (26-34) PG MCHC (30-36) % RDW (11.6-14.8) % Plt Count (150-400) X10^3/uL Neut % (Auto) (50-75) % Lymph % (Auto) (25-40) % Wake % (Auto) (3-14) % Eos % (Auto) (2-4) % Baso % (Auto) (0-2) % Neut # (Auto) (7604-0665) /uL Lymph # (Auto) (3182-2183) /uL Wake # (Auto) (0-900) /uL Eos # (Auto) (0-450) /uL Baso # (Auto) (0-100) /uL Sodium (137-145) mmol/L Potassium (3.4-5.1) mmol/L Chloride (98-107) mmol/L Carbon Dioxide (22-32) mmol/L BUN (9-20) mg/dL Creatinine (0.66-1.25) mg/dL Estimated GFR (>60) mL/min BUN/Creatinine Ratio (6-22) Glucose (80-110) mg/dL Calcium (8.4-10.2) mg/dL Phosphorus 13.1 H* (2.3-3.7) mg/dL Magnesium 2.5 H (1.6-2.3) mg/dL Total Bilirubin (0.2-1.3) mg/dL AST (17-59) IU/L ALT (<50) IU/L Alkaline Phosphatase (38-126) U/L Total Protein (6.3-8.2) g/dL Albumin (3.5-5.0) g/dL Globulin (1.7-4.1) g/dL Albumin/Globulin Ratio (1.0-2.8) Urine Color Urine Appearance Urine pH (4.5-8.0) Ur Specific [place] (1.000-1.035) Urine Protein (Negative) Urine Glucose (UA) (Negative) g/dL Urine Ketones (NEGATIVE) Urine Occult Blood (Negative) Urine Nitrate (Negative) Urine Bilirubin (NEGATIVE) Urine Urobilinogen (0.2) E.U./dL Ur Leukocyte Esterase (NEGATIVE) Urine RBC (0-5/HPF) Urine WBC (0-5/HPF) Ur Squamous Epith Cells (0-5/HPF) Urine Bacteria (None) Urine Sperm Ur Culture Indicated? Ur Random Sodium 35 (30-90) mmol/L Urine Creatinine 83.1 mg/dL SARS-CoV-2 (PCR) Negative (Negative) Blood Type Antibody Screen 11/01/21 11/01/21 11/01/21 Range/Units 16:05 17:00 17:00 WBC 5.4 (4.5-11.0) X10^3/uL RBC 2.86 L (4.5-5.9) X10^6/uL Hgb 9.0 L (13.5-17.5) g/dL Hct 25.7 L (41-53) % MCV 89.8 (80-100) fL MCH 31.3 (26-34) PG MCHC 34.9 (30-36) % RDW 13.5 (11.6-14.8) % Plt Count 268 (150-400) X10^3/uL Neut % (Auto) 67.7 (50-75) % Lymph % (Auto) 16.0 L (25-40) % Wake % (Auto) 13.8 (3-14) % Eos % (Auto) 1.8 L (2-4) % Baso % (Auto) 0.7 (0-2) % Neut # (Auto) 3600 (4109-7043) /uL Lymph # (Auto) 900 L (0335-5803) /uL Wake # (Auto) 700 (0-900) /uL Eos # (Auto) 100 (0-450) /uL Baso # (Auto) 0 (0-100) /uL Sodium 137 (137-145) mmol/L Potassium 4.8 (3.4-5.1) mmol/L Chloride 104 (98-107) mmol/L Carbon Dioxide 15 L (22-32) mmol/L BUN 173 H* (9-20) mg/dL Creatinine 16.02 H* (0.66-1.25) mg/dL Estimated GFR 3 L (>60) mL/min BUN/Creatinine Ratio 10.8 (6-22) Glucose 111 H (80-110) mg/dL Calcium 8.7 (8.4-10.2) mg/dL Phosphorus (2.3-3.7) mg/dL Magnesium (1.6-2.3) mg/dL Total Bilirubin (0.2-1.3) mg/dL AST (17-59) IU/L ALT (<50) IU/L Alkaline Phosphatase (38-126) U/L Total Protein (6.3-8.2) g/dL Albumin (3.5-5.0) g/dL Globulin (1.7-4.1) g/dL Albumin/Globulin Ratio (1.0-2.8) Urine Color Urine Appearance Urine pH (4.5-8.0) Ur Specific [place] (1.000-1.035) Urine Protein (Negative) Urine Glucose (UA) (Negative) g/dL Urine Ketones (NEGATIVE) Urine Occult Blood (Negative) Urine Nitrate (Negative) Urine Bilirubin (NEGATIVE) Urine Urobilinogen (0.2) E.U./dL Ur Leukocyte Esterase (NEGATIVE) Urine RBC (0-5/HPF) Urine WBC (0-5/HPF) Ur Squamous Epith Cells (0-5/HPF) Urine Bacteria (None) Urine Sperm Ur Culture Indicated? Ur Random Sodium (30-90) mmol/L Urine Creatinine mg/dL SARS-CoV-2 (PCR) (Negative) Blood Type A Positive Antibody Screen Negative 11/01/21 11/01/21 Range/Units 21:51 21:51 WBC (4.5-11.0) X10^3/uL RBC (4.5-5.9) X10^6/uL Hgb 9.4 L (13.5-17.5) g/dL Hct 26.9 L (41-53) % MCV (80-100) fL MCH (26-34) PG MCHC (30-36) % RDW (11.6-14.8) % Plt Count (150-400) X10^3/uL Neut % (Auto) (50-75) % Lymph % (Auto) (25-40) % Wake % (Auto) (3-14) % Eos % (Auto) (2-4) % Baso % (Auto) (0-2) % Neut # (Auto) (6661-5862) /uL Lymph # (Auto) (7452-8274) /uL Wake # (Auto) (0-900) /uL Eos # (Auto) (0-450) /uL Baso # (Auto) (0-100) /uL Sodium 140 (137-145) mmol/L Potassium 3.9 (3.4-5.1) mmol/L Chloride 106 (98-107) mmol/L Carbon Dioxide 15 L (22-32) mmol/L BUN 146 H* (9-20) mg/dL Creatinine 12.1 H* (0.66-1.25) mg/dL Estimated GFR 4 L (>60) mL/min BUN/Creatinine Ratio 12.1 (6-22) Glucose 115 H (80-110) mg/dL Calcium 8.7 (8.4-10.2) mg/dL Phosphorus (2.3-3.7) mg/dL Magnesium (1.6-2.3) mg/dL Total Bilirubin (0.2-1.3) mg/dL AST (17-59) IU/L ALT (<50) IU/L Alkaline Phosphatase (38-126) U/L Total Protein (6.3-8.2) g/dL Albumin (3.5-5.0) g/dL Globulin (1.7-4.1) g/dL Albumin/Globulin Ratio (1.0-2.8) Urine Color Urine Appearance Urine pH (4.5-8.0) Ur Specific [place] (1.000-1.035) Urine Protein (Negative) Urine Glucose (UA) (Negative) g/dL Urine Ketones (NEGATIVE) Urine Occult Blood (Negative) Urine Nitrate (Negative) Urine Bilirubin (NEGATIVE) Urine Urobilinogen (0.2) E.U./dL Ur Leukocyte Esterase (NEGATIVE) Urine RBC (0-5/HPF) Urine WBC (0-5/HPF) Ur Squamous Epith Cells (0-5/HPF) Urine Bacteria (None) Urine Sperm Ur Culture Indicated? Ur Random Sodium (30-90) mmol/L Urine Creatinine mg/dL SARS-CoV-2 (PCR) (Negative) Blood Type Antibody Screen Imaging Data CT scan - abdomen/pelvis: Radiologist's Impression: Launch?[address] [address] [address] Scan Report Signed Patient: Nathanael Aviles MR#: [id number] : 1940 Acct:[id number] Age/Sex: 81 / M Date of Service: 11/01/21 Loc: ED Accession Number: [id number] ?? Procedure: CT kidney ureter bladder (KUB) Ordering Provider: Anabel Lawson D.O. PROCEDURE:? CT KIDNEY URETER BLADDER (KUB) ? INDICATIONS:? renal failure ? TECHNIQUE:? Axial sections were acquired from the lung bases to the pubic symphysis.? Coronal and sagittal reformats were performed.? For radiation dose reduction, the following was used: ?automated exposure control, adjustment of mA and/or kV according to patient size.? ? COMPARISON:? None. ? FINDINGS:? Image quality:? Excellent.? ? Lung bases:? Scattered bibasilar dependent atelectasis is seen. Heart:? No significant findings. ? URINARY: Right Kidney:? No renal stones are seen.? Mild prominence of right renal collecting system. Right Ureter:? Mild right hydroureter is seen extending to the level of right UVJ.? No ureteral stone is noted. ? Left Kidney:? No renal stone.? Mild prominence of left renal collecting system is seen. Left Ureter:? [id number] left-sided hydroureter extending to the level of left UVJ is seen, no distal ureteral stone. ? Bladder:? Diffuse bladder wall thickening is seen contains a Benavides catheter.? There is a 1.5 x 0.9 cm calcified stone in dependent portion of bladder lumen.? No discrete bladder wall mass is noted. ? ABDOMEN: Liver:? Unremarkable.? ? Gallbladder:? Gallbladder is distended and shows no gross abnormality. Biliary ducts:? Unremarkable.? ? Pancreas:? Unremarkable.? ? Spleen:? Unremarkable.? ? Adrenal Glands:? Unremarkable.? ? ? Stomach and Bowel:? There is no bowel obstruction.? No gastric or small bowel wall thickening.? Extensive colonic diverticulosis is seen, no colonic wall thickening or mesenteric fat stranding.? No abscess collection. Peritoneum:? No abnormal intraperitoneal fluid.? No free air.? ? Ventral Wall: ? No hernia.? Abdominal Nodes:? No enlarged retroperitoneal or mesenteric lymph nodes.? Vessels:? Aorta and inferior vena cava are normal in size.? ? PELVIS: Pelvic Organs:? Enlarged prostate gland is noted with mass effect on floor of urinary bladder..? ? Pelvic Nodes: Unremarkable. Miscellaneous:? Small bilateral inguinal hernia are seen containing fat only. ? Bones:? No suspicious bony lesion.? Postfusion changes are noted in lower lumbar spine at L4 through S1 levels.? 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 No acute compression fracture. ? IMPRESSION:? ? 1. No obstructing renal stone or ureteral stone.? Mild left worse than right bilateral hydronephrosis and hydroureter extending to the level of UVJ Joe diffuse bladder wall thickening with pericystic fat stranding.? Benavides catheter is also seen within bladder lumen.? 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 Superimposed infectious process such as cystitis and pyelonephritis cannot be excluded.? 1.5 x 0.9 cm bladder stone measures 581 Hounsfield unit in density. 2. Extensive colonic diverticulosis without CT evidence of acute diverticulitis.? No abscess collection.? No free fluid or free air.? No bowel obstruction.? ? ? Dictated by: Virgil Cai M.D. on 11/01/2021 at 12:39 ? ? Approved by: Virgil Cai M.D. on 11/01/2021 at 12:48?? ECG Data Attestation: I personally reviewed and interpreted this ECG as follows: Interpretation: Junctional rhythm, rate 81 QRS 80 QTC of 425. Nonspecific change. MDM Narrative Medical decision making narrative: This is a 81-year-old male who presents for acute renal failure with creatinine of 1.2 reported by outpatient PA on September 13 and a creatinine today of 16 outpatient. Our labs also confirm this, patient's potassium is 5.9, BUN is 190 with a creatinine 021, phosphorus and magnesium are both elevated. Hemoglobin is 9, it was 11 on October 11. Patient had Benavides catheter placed and had 3 L out immediately, likely obstructive process, CT shows enlarged prostate with mass effect on the floor of urinary bladder, patient does have some diffuse bladder wall thickening with pericystic fat stranding and patient may have a cystitis there is also a bladder stone measured. Patient did have lumbar surgery on October 10 but states he was urinating fairly normally until about several days ago. Patient case was discussed with Nephrology, they do not feel patient likely needs transfer immediately they do recommend BMP q.6 hours to monitor lytes they expect Mag and potassium to improve and they recommend adding half normal saline at 100-150 mL/hour once sodium is 135. All labs and findings were reviewed. Patient's repeat potassium was 4.8 with a creatinine is 16 and a GFR of 3. Patient up to this point at 8:16 p.m. has put out 8 L of urine. He has maintained blood pressure, he has not been tachycardic. MRI Lspine was ordered to evaluate for potential cauda equina but unable to obtain at this time. Plan to repeat BMP and h/h/ at 2200, if continued improvement electrolytes and renal function recontact hospitalist service to see about admission. Patient signed out to Dr. Li while awaiting repeat labs. 11pm care is assumed. Repeat creatinine has gone from 21-16 to now 12.1. Potassium has gone from 5.9 to 4.8 to 3.9. H&H has remained stable and actually increased with his diuresis. He remains hemodynamically stable and will need admission for is acute obstructive renal failure. MRI was obtained to make sure there were no complications of his recent lumbar surgery to be causing his acute urinary retention. MRI does not suggest acute cauda equina, epidural abscess or epidural hematoma. Care is reviewed with Dr. Dimas and patient would be admitted for further treatment. <Selina Li MD - Last Filed: 11/02/21 03:38> Lab Data Labs: Lab Results 11/01/21 11/01/21 11/01/21 Range/Units 11:35 11:35 11:35 WBC 7.8 (4.5-11.0) X10^3/uL RBC 3.05 L (4.5-5.9) X10^6/uL Hgb 9.5 L (13.5-17.5) g/dL Hct 27.8 L (41-53) % MCV 91.0 (80-100) fL MCH 31.1 (26-34) PG MCHC 34.2 (30-36) % RDW 13.5 (11.6-14.8) % Plt Count 297 (150-400) X10^3/uL Neut % (Auto) 69.5 (50-75) % Lymph % (Auto) 13.1 L (25-40) % Wake % (Auto) 14.3 H (3-14) % Eos % (Auto) 2.3 (2-4) % Baso % (Auto) 0.8 (0-2) % Neut # (Auto) 5400 (4367-8962) /uL Lymph # (Auto) 1000 L (1103-2213) /uL [place] # (Auto) 1100 H (0-900) /uL Eos # (Auto) 200 (0-450) /uL Baso # (Auto) 100 (0-100) /uL Sodium 133 L (137-145) mmol/L Potassium 5.9 H (3.4-5.1) mmol/L Chloride 96 L (98-107) mmol/L Carbon Dioxide 12 L (22-32) mmol/L BUN 190 H* (9-20) mg/dL Creatinine 21.0 H* (0.66-1.25) mg/dL Estimated GFR 2 L (>60) mL/min BUN/Creatinine Ratio 9.0 (6-22) Glucose 120 H (80-110) mg/dL Calcium 8.6 (8.4-10.2) mg/dL Phosphorus (2.3-3.7) mg/dL Magnesium (1.6-2.3) mg/dL Total Bilirubin 0.6 (0.2-1.3) mg/dL AST 23 (17-59) IU/L ALT 11 (<50) IU/L Alkaline Phosphatase 66 (38-126) U/L Total Protein 6.8 (6.3-8.2) g/dL Albumin 4.0 (3.5-5.0) g/dL Globulin 2.8 (1.7-4.1) g/dL Albumin/Globulin Ratio 1.4 (1.0-2.8) Urine Color Yellow Urine Appearance Clear Urine pH 5.0 (4.5-8.0) Ur Specific [place] 1.015 (1.000-1.035) Urine Protein Trace H (Negative) Urine Glucose (UA) Negative (Negative) g/dL Urine Ketones Negative (NEGATIVE) Urine Occult Blood 2+ H (Negative) Urine Nitrate Negative (Negative) Urine Bilirubin Negative (NEGATIVE) Urine Urobilinogen 0.2 (0.2) E.U./dL Ur Leukocyte Esterase Trace H (NEGATIVE) Urine RBC 10-30/hpf H (0-5/HPF) Urine WBC 1-5/hpf (0-5/HPF) Ur Squamous Epith Cells 1-5 /hpf (0-5/HPF) Urine Bacteria Few (2-10) H (None) Urine Sperm Few present Ur Culture Indicated? Specimen cultured Ur Random Sodium (30-90) mmol/L Urine Creatinine mg/dL SARS-CoV-2 (PCR) (Negative) Blood Type Antibody Screen 11/01/21 11/01/21 11/01/21 Range/Units 11:35 11:35 11:35 WBC (4.5-11.0) X10^3/uL RBC (4.5-5.9) X10^6/uL Hgb (13.5-17.5) g/dL Hct (41-53) % MCV (80-100) fL MCH (26-34) PG MCHC (30-36) % RDW (11.6-14.8) % Plt Count (150-400) X10^3/uL Neut % (Auto) (50-75) % Lymph % (Auto) (25-40) % [place] % (Auto) (3-14) % Eos % (Auto) (2-4) % Baso % (Auto) (0-2) % Neut # (Auto) (1753-4640) /uL Lymph # (Auto) (8522-1377) /uL [place] # (Auto) (0-900) /uL Eos # (Auto) (0-450) /uL Baso # (Auto) (0-100) /uL Sodium (137-145) mmol/L Potassium (3.4-5.1) mmol/L Chloride (98-107) mmol/L Carbon Dioxide (22-32) mmol/L BUN (9-20) mg/dL Creatinine (0.66-1.25) mg/dL Estimated GFR (>60) mL/min BUN/Creatinine Ratio (6-22) Glucose (80-110) mg/dL Calcium (8.4-10.2) mg/dL Phosphorus 13.1 H* (2.3-3.7) mg/dL Magnesium 2.5 H (1.6-2.3) mg/dL Total Bilirubin (0.2-1.3) mg/dL AST (17-59) IU/L ALT (<50) IU/L Alkaline Phosphatase (38-126) U/L Total Protein (6.3-8.2) g/dL Albumin (3.5-5.0) g/dL Globulin (1.7-4.1) g/dL Albumin/Globulin Ratio (1.0-2.8) Urine Color Urine Appearance Urine pH (4.5-8.0) Ur Specific [place] (1.000-1.035) Urine Protein (Negative) Urine Glucose (UA) (Negative) g/dL Urine Ketones (NEGATIVE) Urine Occult Blood (Negative) Urine Nitrate (Negative) Urine Bilirubin (NEGATIVE) Urine Urobilinogen (0.2) E.U./dL Ur Leukocyte Esterase (NEGATIVE) Urine RBC (0-5/HPF) Urine WBC (0-5/HPF) Ur Squamous Epith Cells (0-5/HPF) Urine Bacteria (None) Urine Sperm Ur Culture Indicated? Ur Random Sodium 35 (30-90) mmol/L Urine Creatinine 83.1 mg/dL SARS-CoV-2 (PCR) Negative (Negative) Blood Type Antibody Screen 11/01/21 11/01/21 11/01/21 Range/Units 16:05 17:00 17:00 WBC 5.4 (4.5-11.0) X10^3/uL RBC 2.86 L (4.5-5.9) X10^6/uL Hgb 9.0 L (13.5-17.5) g/dL Hct 25.7 L (41-53) % MCV 89.8 (80-100) fL MCH 31.3 (26-34) PG MCHC 34.9 (30-36) % RDW 13.5 (11.6-14.8) % Plt Count 268 (150-400) X10^3/uL Neut % (Auto) 67.7 (50-75) % Lymph % (Auto) 16.0 L (25-40) % [place] % (Auto) 13.8 (3-14) % Eos % (Auto) 1.8 L (2-4) % Baso % (Auto) 0.7 (0-2) % Neut # (Auto) 3600 (5540-7670) /uL Lymph # (Auto) 900 L (9347-8016) /uL [place] # (Auto) 700 (0-900) /uL Eos # (Auto) 100 (0-450) /uL Baso # (Auto) 0 (0-100) /uL Sodium 137 (137-145) mmol/L Potassium 4.8 (3.4-5.1) mmol/L Chloride 104 (98-107) mmol/L Carbon Dioxide 15 L (22-32) mmol/L BUN 173 H* (9-20) mg/dL Creatinine 16.02 H* (0.66-1.25) mg/dL Estimated GFR 3 L (>60) mL/min BUN/Creatinine Ratio 10.8 (6-22) Glucose 111 H (80-110) mg/dL Calcium 8.7 (8.4-10.2) mg/dL Phosphorus (2.3-3.7) mg/dL Magnesium (1.6-2.3) mg/dL Total Bilirubin (0.2-1.3) mg/dL AST (17-59) IU/L ALT (<50) IU/L Alkaline Phosphatase (38-126) U/L Total Protein (6.3-8.2) g/dL Albumin (3.5-5.0) g/dL Globulin (1.7-4.1) g/dL Albumin/Globulin Ratio (1.0-2.8) Urine Color Urine Appearance Urine pH (4.5-8.0) Ur Specific [place] (1.000-1.035) Urine Protein (Negative) Urine Glucose (UA) (Negative) g/dL Urine Ketones (NEGATIVE) Urine Occult Blood (Negative) Urine Nitrate (Negative) Urine Bilirubin (NEGATIVE) Urine Urobilinogen (0.2) E.U./dL Ur Leukocyte Esterase (NEGATIVE) Urine RBC (0-5/HPF) Urine WBC (0-5/HPF) Ur Squamous Epith Cells (0-5/HPF) Urine Bacteria (None) Urine Sperm Ur Culture Indicated? Ur Random Sodium (30-90) mmol/L Urine Creatinine mg/dL SARS-CoV-2 (PCR) (Negative) Blood Type A Positive Antibody Screen Negative 11/01/21 11/01/21 Range/Units 21:51 21:51 WBC (4.5-11.0) X10^3/uL RBC (4.5-5.9) X10^6/uL Hgb 9.4 L (13.5-17.5) g/dL Hct 26.9 L (41-53) % MCV (80-100) fL MCH (26-34) PG MCHC (30-36) % RDW (11.6-14.8) % Plt Count (150-400) X10^3/uL Neut % (Auto) (50-75) % Lymph % (Auto) (25-40) % [place] % (Auto) (3-14) % Eos % (Auto) (2-4) % Baso % (Auto) (0-2) % Neut # (Auto) (5207-6504) /uL Lymph # (Auto) (2059-5754) /uL [place] # (Auto) (0-900) /uL Eos # (Auto) (0-450) /uL Baso # (Auto) (0-100) /uL Sodium 140 (137-145) mmol/L Potassium 3.9 (3.4-5.1) mmol/L Chloride 106 (98-107) mmol/L Carbon Dioxide 15 L (22-32) mmol/L BUN 146 H* (9-20) mg/dL Creatinine 12.1 H* (0.66-1.25) mg/dL Estimated GFR 4 L (>60) mL/min BUN/Creatinine Ratio 12.1 (6-22) Glucose 115 H (80-110) mg/dL Calcium 8.7 (8.4-10.2) mg/dL Phosphorus (2.3-3.7) mg/dL Magnesium (1.6-2.3) mg/dL Total Bilirubin (0.2-1.3) mg/dL AST (17-59) IU/L ALT (<50) IU/L Alkaline Phosphatase (38-126) U/L Total Protein (6.3-8.2) g/dL Albumin (3.5-5.0) g/dL Globulin (1.7-4.1) g/dL Albumin/Globulin Ratio (1.0-2.8) Urine Color Urine Appearance Urine pH (4.5-8.0) Ur Specific [place] (1.000-1.035) Urine Protein (Negative) Urine Glucose (UA) (Negative) g/dL Urine Ketones (NEGATIVE) Urine Occult Blood (Negative) Urine Nitrate (Negative) Urine Bilirubin (NEGATIVE) Urine Urobilinogen (0.2) E.U./dL Ur Leukocyte Esterase (NEGATIVE) Urine RBC (0-5/HPF) Urine WBC (0-5/HPF) Ur Squamous Epith Cells (0-5/HPF) Urine Bacteria (None) Urine Sperm Ur Culture Indicated? Ur Random Sodium (30-90) mmol/L Urine Creatinine mg/dL SARS-CoV-2 (PCR) (Negative) Blood Type Antibody Screen MDM Narrative Medical decision making narrative: This is a 81-year-old male who presents for acute renal failure with creatinine of 1.2 reported by outpatient PA on September 13 and a creatinine today of 16 outpatient. Our labs also confirm this, patient's potassium is 5.9, BUN is 190 with a creatinine 021, phosphorus and magnesium are both elevated. Hemoglobin is 9, it was 11 on October 11. Patient had Benavides catheter placed and had 3 L out immediately, likely obstructive process, CT shows enlarged prostate with mass effect on the floor of urinary bladder, patient does have some diffuse bladder wall thickening with pericystic fat stranding and patient may have a cystitis there is also a bladder stone measured. Patient did have lumbar surgery on October 10 but states he was urinating fairly normally until about several days ago. Patient case was discussed with Nephrology, they do not feel patient likely needs transfer immediately they do recommend BMP q.6 hours to monitor lytes they expect Mag and potassium to improve and they recommend adding half normal saline at 100-150 mL/hour once sodium is 135. All labs and findings were reviewed. Patient's repeat potassium was 4.8 with a creatinine is 16 and a GFR of 3. Patient up to this point at 8:16 p.m. has put out 8 L of urine. He has maintained blood pressure, he has not been tachycardic. MRI Lspine was ordered to evaluate for potential cauda equina but unable to obtain at this time. Plan to repeat BMP and h/h/ at 2200, if continued improvement electrolytes and renal function recontact hospitalist service to see about admission. Patient signed out to Dr. Li while awaiting repeat labs. 11pm care is assumed. Repeat creatinine has gone from 21-16 to now 12.1. Potassium has gone from 5.9 to 4.8 to 3.9. H&H has remained stable and actually increased with his diuresis. He remains hemodynamically stable and will need admission for is acute obstructive renal failure. MRI was obtained to make sure there were no complications of his recent lumbar surgery to be causing his acute urinary retention. MRI does not suggest acute cauda equina, epidural abscess or epidural hematoma. Care is reviewed with Dr. Zapien and patient would be admitted for further treatment. Discharge Plan Departure Patient Disposition: Admitted As Inpatient Clinical Impression: Acute renal failure, Anemia, Urinary retention Admit Date/Time: 11/01/21 23:08 Admit Provider: Reanna Dimas
[2021-11-01] MEDS: SODIUM CHLORIDE 0.9% 1,000 ML 1000 ML IV (12:48)
[2021-11-01 13:20] LABS: RBC Urine 10-30/HPF (0-5/HPF); Squamous Epithelial Cell Urine 1-5 /HPF (0-5/HPF); WBC Urine 1-5/HPF (0-5/HPF)
[2021-11-01 13:21] LABS: Bacteria Urine Few (2-10); Culture Indicated Urine Specimen Cultured; Sperm Urine FEW PRESENT
[2021-11-01] MEDS: SODIUM CHLORIDE 0.9% 1,000 ML 150 ML IV (15:59)
[2021-11-01 16:29] LABS: Creatinine Urine Random 83.1 mg/dL; Sodium Urine Random 35 mmol/L (30-90)
[2021-11-01 16:31] LABS: Calcium 8.7 mg/dL (8.4-10.2); Carbon Dioxide 15 mmol/L (22-32); Chloride 104 mmol/L (98-107); Glucose 111 mg/dL (80-110); HEMOLYSIS < 15 (0-50); Potassium 4.8 mmol/L (3.4-5.1); Sodium 137 mmol/L (137-145)
[2021-11-01 16:42] LABS: BUN Creatinine Ratio 10.8 (6-22); Estimated Glomerular Filt Rate 3 mL/min (>60)
[2021-11-01 16:43] LABS: Blood Urea Nitrogen 173 mg/dL (9-20)
[2021-11-01] MEDS: cefTRIAXone 1,000 MG in SODIUM CHLORIDE 0.9% 100 ML 200 MG IV (16:54)
[2021-11-01] MEDS: SODIUM CHLORIDE 0.45% 1,000 ML 150 ML IV (16:55)
--- NOTE | 2021-11-01 16:57 | PC.NURSE ---
more hematuric than previous hour
[2021-11-01 17:11] LABS: Add Manual Diff / Slide Review NO; Basophils Absolute Auto 0 /uL (0-100); Basophils Percent Auto 0.7 % (0-2); Eosinophils Absolute Auto 100 /uL (0-450); Eosinophils Percent Auto 1.8 % (2-4); Hematocrit 25.7 % (41-53); Lymphocytes Absolute Auto 900 /uL (1100-4500); Mean Corpuscular HGB Conc 34.9 % (30-36); Mean Corpuscular Hemoglobin 31.3 PG (26-34); Mean Corpuscular Volume 89.8 fL (80-100); Monocytes Absolute Auto 700 /uL (0-900); Monocytes Percent Auto 13.8 % (3-14); Neutrophils Absolute Auto 3600 /uL (1500-7000); Neutrophils Percent Auto 67.7 % (50-75); Platelet Count 268 X10^3/uL (150-400); Red Blood Cell Count 2.86 X10^6/uL (4.5-5.9); Red Cell Distribution Width 13.5 % (11.6-14.8); White Blood Cell Count 5.4 X10^3/uL (4.5-11.0)
--- NOTE | 2021-11-01 20:00 | PC.NURSE ---
urine more frankly hematuric, unable to see through at all.
--- NOTE | 2021-11-01 20:05 | DI.MRI.S_ITS ---
PROCEDURE: MR LUMBAR SPINE WO CON INDICATIONS: urinary retension, 1 month post virgil TECHNIQUE: Noncontrast sagittal T1 spin echo and T2 fast echo, sagittal STIR, and T2 fast spin echo through the lumbar spine. In cases with scoliosis, additional coronal T2 fast spin echo may be performed. COMPARISON: [facility], CR, XR LUMBAR SPINE MIN 4V, 12/04/2020, 13:10. [facility], MR, MR LUMBAR SPINE WO CON, 12/14/2020, 11:45. FINDINGS: Image quality: There is magnetic susceptibility artifact from patient's surgical hardware limiting evaluation. Alignment and Curvature: There is improved alignment the status postsurgical fixation and posterior fusion at L4 through S1 with resolution of the previously visualized anterolisthesis at L4-5. Bone Marrow: Marrow is of normal overall signal. There is bone marrow edema clinically L5 vertebral body and inferiorly within the L4 vertebral body. Reactive endplate fatty changes also redemonstrated at L5-S1. No acute vertebral body compression fractures. Spinal Cord: Conus medullaris terminates at the L1 level. Visualized cord demonstrates normal signal and size. Paraspinous Soft Tissues: No paravertebral masses or fluid collections. T12-L1: Within normal limits. L1-L2: Within normal limits. L2-L3: There is mild loss of disc height with a moderate broad-based disc bulge. There is associated moderate facet arthropathy with joint fluid bilaterally as well as ligamentum flavum hypertrophy and epidural lipomatosis. Findings contribute to moderate to severe spinal canal narrowing. There is associated mild to moderate right and mild left neural foraminal narrowing. Findings are similar to the prior study. L3-L4: Mild loss of disc height with a broad-based disc bulge. There is moderate facet arthropathy and ligamentum flavum hypertrophy as well as mild epidural lipomatosis posteriorly. Findings contribute to severe spinal canal narrowing with mild to moderate right and mild left neural foraminal narrowing. Findings are similar to the prior study. L4-L5: There are interval postsurgical changes status post posterior fixation with partial discectomy changes posteriorly. There is moderate facet arthropathy and mild ligamentum vertebra. Findings contribute to severe spinal canal narrowing. There is moderate bilateral neural foraminal narrowing. Findings are similar to the prior study. L5-S1: There is moderate to severe degenerative disc disease with a small broad-based disc bulge posteriorly. There is associated mild facet joint arthropathy. Findings contribute to mild spinal canal narrowing. There is mild left neural foraminal narrowing with evaluation limited by adjacent metallic streak artifact. IMPRESSION: 1. Multilevel degenerative changes redemonstrated with interval postsurgical changes at L4 through S1 as described. 2. Severe spinal canal narrowing redemonstrated at L3-L4 and L4-5. Moderate to severe spinal canal narrowing also demonstrated at L2-L3. 3. Multilevel neural foraminal narrowing including mild to moderate narrowing on the right at L2-L3 and L3-L4 and moderate narrowing bilaterally at L4-5. 4. Nonspecific bone marrow edema within the L4 and L5 vertebral bodies. The findings may be reactive but the differential includes sequelae of degenerative disc disease or osteomyelitis. Recommend correlation clinically. Dictated by: Daren Minaya M.D. on 11/01/2021 at 21:39 Approved by: Daren Minaya M.D. on 11/01/2021 at 22:03
[2021-11-01] MEDS: MORPHINE 4 MG/ML INJ IV (20:12)
[2021-11-01] MEDS: LORazepam 2 MG/ML INJ 0.5 MG IV (20:38)
[2021-11-01 21:57] LABS: Hematocrit 26.9 % (41-53); Hemoglobin 9.4 g/dL (13.5-17.5)
[2021-11-01 22:06] LABS: Calcium 8.7 mg/dL (8.4-10.2); Carbon Dioxide 15 mmol/L (22-32); Chloride 106 mmol/L (98-107); Estimated Glomerular Filt Rate 4 mL/min (>60); Glucose 115 mg/dL (80-110); HEMOLYSIS < 15 (0-50); Potassium 3.9 mmol/L (3.4-5.1); Sodium 140 mmol/L (137-145)
[2021-11-01 22:15] LABS: BUN Creatinine Ratio 12.1 (6-22)
[2021-11-01 22:17] LABS: Blood Urea Nitrogen 146 mg/dL (9-20)
--- NOTE | 2021-11-01 23:12 | PM.HP.1 ---
History of Present Illness History of Present Illness Date Patient Seen: 11/01/21 Time Patient Seen: 23:12 Chief complaint: States acute kidney/liver failure Narrative: This is a 81-year-old male with a history of hypertension, depression, spinal stenosis and glaucoma who presents with back pain and urinary frequency with sensation of incomplete bladder emptying. After placement of a Benavides catheter he had immediate return of 3 L of yellow urine with eventual production of 8 L of urine in the next several hours. His initial creatinine was 21 with a BUN of 190. As the hours have passed in the ED his creatinine has dropped to 16 and then to 12. He has significant anasarca. The magnesium was 2.5 with a phosphorus of 13.1. His hemoglobin has dropped from 11 down to 9.4. The UA has 1-5 WBCs and 10-30 RBCs. He has a bladder stone measuring 1.5 x 0.9 cm and evidence of hydronephrosis with prostate enlargement. He underwent lumbar spine laminectomy 1 month ago here and did not seem to have any urinary symptoms before that surgery. An MRI of the spine has been repeated to ensure that there is no acute neurological cause of the urinary retention and nothing new has been identified. He has been discussed with Nephrology, Dr. Mejia who advised that since his renal failure seems to be explained by the obstructive uropathy he can be hydrated here while observing for continued improvement in his renal function without immediate need for dialysis. His presenting potassium level was 5.9, now down to 3.9. He denies any prior history of BPH. Patient History Medical History Depression Glaucoma Hearing impaired HNP (herniated nucleus pulposus), lumbar HTN (hypertension) Lumbar foraminal stenosis Sciatica Seasonal allergies Skin rash Spinal stenosis Spondylolisthesis at L4-L5 level Stomach ulcer (1996) Surgical History Hx of appendectomy Hx of bilateral cataract extraction Hx of shoulder surgery Hx of tonsillectomy Family & Social History Family History (Updated 11/02/21 @ 00:09 by Reanna Dimas MD) Father due to natural causes Mother due to natural causes Dementia Brother Kidney lesion Social History: household members none Safety & Behavioral: Feels Safe in Current Yes Environment Been Physically Hurt or No Threatened By a Person Tobacco & Substance use: Tobacco type cigarettes,pipe,cigars Smoking Status Former smoker alcohol intake current alcohol intake frequency 3 or more drinks per day Substance Use Type does not use Comment: His backup decision maker is his friend Giselle Osei. Meds Home Medications and Allergies Home Medications Medication Instructions Recorded Confirmed Type acetaminophen 500 mg capsule 500 mg PO DAILY PRN 12/04/20 11/01/21 History amlodipine 5 mg tablet 5 mg PO DAILY 12/04/20 11/01/21 History dorzolamide 22.3 mg-timolol 6.8 1 drp EYE-BOTH BID ml 12/04/20 11/01/21 History mg/mL eye drops latanoprostene bunod 0.024 % eye 1 drp EYE-BOTH BEDTIME ml 12/04/20 11/01/21 History drops (Vyzulta) losartan 100 1 tab PO DAILY 12/04/20 11/01/21 History mg-hydrochlorothiazide 25 mg tablet metoprolol succinate 50 mg 50 mg PO DAILY 12/04/20 11/01/21 History tablet,extended release 24 hr montelukast 10 mg tablet 10 mg PO DAILY 12/04/20 11/01/21 History gabapentin 300 mg capsule 300 mg PO .COMPLEX PRN 10/02/21 11/01/21 History cyclobenzaprine 10 mg tablet 10 mg PO TID PRN #60 tab 10/11/21 11/01/21 Rx docusate sodium 100 mg capsule 100 mg PO BID PRN #60 cap 10/11/21 11/01/21 Rx hydrocodone 10 mg-acetaminophen 1 tab PO Q4-6H PRN #40 tab 10/11/21 11/01/21 Rx 325 mg tablet cyclobenzaprine 10 mg tablet 10 mg PO TID PRN 11/01/21 11/01/21 History docusate sodium 100 mg capsule 100 mg PO BID 11/01/21 11/01/21 History furosemide 20 mg tablet 20 mg PO BID 11/01/21 11/01/21 History latanoprostene bunod 0.024 % eye 1 drp OPHTHALMIC (EYE) BEDTIME 11/01/21 11/01/21 History drops (Vyzulta) oxycodone 5 mg tablet 5 mg PO BEDTIME PRN 11/01/21 11/01/21 History Allergies Allergy/AdvReac Type Severity Reaction Status Date / Time No Known Drug Allergies Allergy Verified 10/10/21 09:11 Review of Systems Review of Systems Narrative: He is having incomplete bladder emptying along with back pain. Negative for fevers, chills, sweats, nausea, vomiting, chest pain, shortness breast, coughing, abdominal pain, hematuria, seizures, rashes, headaches, new allergies. Exam Vital Signs (past 8 hours): - 11/01/21 15:30 11/01/21 16:00 11/01/21 16:30 Pulse Rate 77 84 87 Respiratory Rate 18 18 18 Blood Pressure 126/60 143/65 H 144/64 H Pulse Oximetry 99 98 99 11/01/21 17:00 11/01/21 17:30 11/01/21 18:00 Pulse Rate 89 82 86 Respiratory Rate 18 18 18 Blood Pressure 146/77 H 129/60 146/65 H Pulse Oximetry 100 99 99 11/01/21 18:30 11/01/21 19:00 11/01/21 19:30 Pulse Rate 83 86 86 Respiratory Rate 18 18 20 Blood Pressure 130/61 132/60 130/58 L Pulse Oximetry 100 100 100 11/01/21 20:00 11/01/21 20:30 11/01/21 21:33 Pulse Rate 95 H 99 H 109 H Respiratory Rate 20 Blood Pressure 145/67 H 177/85 H Pulse Oximetry 100 99 93 11/01/21 21:35 11/01/21 22:00 11/01/21 22:01 Pulse Rate 106 H 93 H 93 H Respiratory Rate 18 15 19 Blood Pressure 156/72 H 124/60 Pulse Oximetry 97 98 98 11/01/21 22:30 11/01/21 23:00 Pulse Rate 89 90 Respiratory Rate 22 22 Blood Pressure 128/66 134/61 Pulse Oximetry 96 96 Oxygen Delivery Method Room Air Narrative Exam Narrative: He is alert and oriented x3. No apparent distress Pupils are equally round and reactive to light and accommodation Extraocular muscles are intact Sclerae are pink and nonicteric Throat looks normal No lymph nodes are felt head, neck, supraclavicular area There is no thyromegaly JVD is less than 6 cm No carotid bruits are heard Heart is regular rate and rhythm without murmur Lungs are clear to auscultation bilaterally Abdomen is soft, bowel sounds positive, nontender, no organomegaly. Extremities have 3+ pitting edema involving the entire legs bilaterally. This seems to extend up to the lower abdomen but does not involve the upper extremities. Skin has no rash or jaundice, there are 2 large shallow blisters on the left foot. Neurological exam: Cranial nerves 2-12 test intact there is no tremor Motor function is 4/[address] scan - abdomen: Radiologist's impression: PROCEDURE:? CT KIDNEY URETER BLADDER (KUB) ? INDICATIONS:? renal failure ? TECHNIQUE:? Axial sections were acquired from the lung bases to the pubic symphysis.? Coronal and sagittal reformats were performed.? For radiation dose reduction, the following was used: ?automated exposure control, adjustment of mA and/or kV according to patient size.? ? COMPARISON:? None. ? FINDINGS:? Image quality:? Excellent.? ? Lung bases:? Scattered bibasilar dependent atelectasis is seen. Heart:? No significant findings. ? URINARY: Right Kidney:? No renal stones are seen.? Mild prominence of right renal collecting system. Right Ureter:? Mild right hydroureter is seen extending to the level of right UVJ.? No ureteral stone is noted. ? Left Kidney:? No renal stone.? Mild prominence of left renal collecting system is seen. Left Ureter:? [id number] left-sided hydroureter extending to the level of left UVJ is seen, no distal ureteral stone. ? Bladder:? Diffuse bladder wall thickening is seen contains a Benavides catheter.? There is a 1.5 x 0.9 cm calcified stone in dependent portion of bladder lumen.? No discrete bladder wall mass is noted. ? ABDOMEN: Liver:? Unremarkable.? ? Gallbladder:? Gallbladder is distended and shows no gross abnormality. Biliary ducts:? Unremarkable.? ? Pancreas:? Unremarkable.? ? Spleen:? Unremarkable.? ? Adrenal Glands:? Unremarkable.? ? ? Stomach and Bowel:? There is no bowel obstruction.? No gastric or small bowel wall thickening.? Extensive colonic diverticulosis is seen, no colonic wall thickening or mesenteric fat stranding.? No abscess collection. Peritoneum:? No abnormal intraperitoneal fluid.? No free air.? ? Ventral Wall: ? No hernia.? Abdominal Nodes:? No enlarged retroperitoneal or mesenteric lymph nodes.? Vessels:? Aorta and inferior vena cava are normal in size.? ? PELVIS: Pelvic Organs:? Enlarged prostate gland is noted with mass effect on floor of urinary bladder..? ? Pelvic Nodes: Unremarkable. Miscellaneous:? Small bilateral inguinal hernia are seen containing fat only. ? Bones:? No suspicious bony lesion.? Postfusion changes are noted in lower lumbar spine at L4 through S1 levels.? 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 No acute compression fracture. ? IMPRESSION:? ? 1. No obstructing renal stone or ureteral stone.? Mild left worse than right bilateral hydronephrosis and hydroureter extending to the level of UVJ Joe diffuse bladder wall thickening with pericystic fat stranding.? Benavides catheter is also seen within bladder lumen.? 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 Superimposed infectious process such as cystitis and pyelonephritis cannot be excluded.? 1.5 x 0.9 cm bladder stone measures 581 Hounsfield unit in density. 2. Extensive colonic diverticulosis without CT evidence of acute diverticulitis.? No abscess collection.? No free fluid or free air.? No bowel obstruction.? ? ? Dictated by: Virgil Cai M.D. on 11/01/2021 at 12:39 ? ? MRI - lumbar: Radiologist's impression: PROCEDURE:? MR LUMBAR SPINE WO CON ? INDICATIONS:? urinary retension, 1 month post virgil ? TECHNIQUE:? Noncontrast sagittal T1 spin echo and T2 fast echo, sagittal STIR, and T2 fast spin echo through the lumbar spine.? In cases with scoliosis, additional coronal T2 fast spin echo may be performed.? ? COMPARISON:? [facility], CR, XR LUMBAR SPINE MIN 4V, 12/04/2020, 13:10.? [facility], MR, MR LUMBAR SPINE WO CON, 12/14/2020, 11:45. ? FINDINGS:? Image quality:? There is magnetic susceptibility artifact from patient's surgical hardware limiting evaluation.? ? Alignment and Curvature:? There is improved alignment the status postsurgical fixation and posterior fusion at L4 through S1 with resolution of the previously visualized anterolisthesis at L4-5. ? Bone Marrow:? Marrow is of normal overall signal.? There is bone marrow edema clinically L5 vertebral body and inferiorly within the L4 vertebral body.? Reactive endplate fatty changes also redemonstrated at L5-S1.? No acute vertebral body compression fractures.? ? Spinal Cord:? Conus medullaris terminates at the L1 level.? Visualized cord demonstrates normal signal and size.? ? Paraspinous Soft Tissues:? No paravertebral masses or fluid collections.? ? T12-L1:? Within normal limits. ? L1-L2:? Within normal limits. ? L2-L3:? There is mild loss of disc height with a moderate broad-based disc bulge.? There is associated moderate facet arthropathy with joint fluid bilaterally as well as ligamentum flavum hypertrophy and epidural lipomatosis.? Findings contribute to moderate to severe spinal canal narrowing.? There is associated mild to moderate right and mild left neural foraminal narrowing.? Findings are similar to the prior study. ? L3-L4:? Mild loss of disc height with a broad-based disc bulge.? There is moderate facet arthropathy and ligamentum flavum hypertrophy as well as mild epidural lipomatosis posteriorly.? Findings contribute to severe spinal canal narrowing with mild to moderate right and mild left neural foraminal narrowing.? Findings are similar to the prior study. ? L4-L5:? There are interval postsurgical changes status post posterior fixation with partial discectomy changes posteriorly.? There is moderate facet arthropathy and mild ligamentum vertebra.? Findings contribute to severe spinal canal narrowing.? There is moderate bilateral neural foraminal narrowing.? Findings are similar to the prior study. ? L5-S1:? There is moderate to severe degenerative disc disease with a small broad-based disc bulge posteriorly.? There is associated mild facet joint arthropathy.? Findings contribute to mild spinal canal narrowing.? There is mild left neural foraminal narrowing with evaluation limited by adjacent metallic streak artifact. ? ? IMPRESSION:? ? 1. Multilevel degenerative changes redemonstrated with interval postsurgical changes at L4 through S1 as described. ? 2. Severe spinal canal narrowing redemonstrated at L3-L4 and L4-5.? Moderate to severe spinal canal narrowing also demonstrated at L2-L3. ? 3. Multilevel neural foraminal narrowing including mild to moderate narrowing on the right at L2-L3 and L3-L4 and moderate narrowing bilaterally at L4-5. ? 4. Nonspecific bone marrow edema within the L4 and L5 vertebral bodies.? The findings may be reactive but the differential includes sequelae of degenerative disc disease or osteomyelitis.? Recommend correlation clinically. ? ? Dictated by: Daren Minaya M.D. on 11/01/2021 at 21:39 ? Labs Result Diagrams: 11/01/21 21:51 11/01/21 21:51 Labs: Laboratory Results - last 24 hr 11/01/21 11/01/21 11/01/21 11:35 11:35 11:35 WBC 7.8 RBC 3.05 L Hgb 9.5 L Hct 27.8 L MCV 91.0 MCH 31.1 MCHC 34.2 RDW 13.5 Plt Count 297 Neut % (Auto) 69.5 Lymph % (Auto) 13.1 L [place] % (Auto) 14.3 H Eos % (Auto) 2.3 Baso % (Auto) 0.8 Neut # (Auto) 5400 Lymph # (Auto) 1000 L [place] # (Auto) 1100 H Eos # (Auto) 200 Baso # (Auto) 100 Sodium 133 L Potassium 5.9 H Chloride 96 L Carbon Dioxide 12 L BUN 190 H* Creatinine 21.0 H* Estimated GFR 2 L BUN/Creatinine Ratio 9.0 Glucose 120 H Calcium 8.6 Phosphorus Magnesium Total Bilirubin 0.6 AST 23 ALT 11 Alkaline Phosphatase 66 Total Protein 6.8 Albumin 4.0 Globulin 2.8 Albumin/Globulin Ratio 1.4 Urine Color Yellow Urine Appearance Clear Urine pH 5.0 Ur Specific [place] 1.015 Urine Protein Trace H Urine Glucose (UA) Negative Urine Ketones Negative Urine Occult Blood 2+ H Urine Nitrate Negative Urine Bilirubin Negative Urine Urobilinogen 0.2 Ur Leukocyte Esterase Trace H Urine RBC 10-30/hpf H Urine WBC 1-5/hpf Ur Squamous Epith Cells 1-5 /hpf Urine Bacteria Few (2-10) H Urine Sperm Few present Ur Culture Indicated? Specimen cultured Ur Random Sodium Urine Creatinine SARS-CoV-2 (PCR) Blood Type Antibody Screen 11/01/21 11/01/21 11/01/21 11:35 11:35 11:35 WBC RBC Hgb Hct MCV MCH MCHC RDW Plt Count Neut % (Auto) Lymph % (Auto) [place] % (Auto) Eos % (Auto) Baso % (Auto) Neut # (Auto) Lymph # (Auto) [place] # (Auto) Eos # (Auto) Baso # (Auto) Sodium Potassium Chloride Carbon Dioxide BUN Creatinine Estimated GFR BUN/Creatinine Ratio Glucose Calcium Phosphorus 13.1 H* Magnesium 2.5 H Total Bilirubin AST ALT Alkaline Phosphatase Total Protein Albumin Globulin Albumin/Globulin Ratio Urine Color Urine Appearance Urine pH Ur Specific Fithian Urine Protein Urine Glucose (UA) Urine Ketones Urine Occult Blood Urine Nitrate Urine Bilirubin Urine Urobilinogen Ur Leukocyte Esterase Urine RBC Urine WBC Ur Squamous Epith Cells Urine Bacteria Urine Sperm Ur Culture Indicated? Ur Random Sodium 35 Urine Creatinine 83.1 SARS-CoV-2 (PCR) Negative Blood Type Antibody Screen 11/01/21 11/01/21 11/01/21 16:05 17:00 17:00 WBC 5.4 RBC 2.86 L Hgb 9.0 L Hct 25.7 L MCV 89.8 MCH 31.3 MCHC 34.9 RDW 13.5 Plt Count 268 Neut % (Auto) 67.7 Lymph % (Auto) 16.0 L [place] % (Auto) 13.8 Eos % (Auto) 1.8 L Baso % (Auto) 0.7 Neut # (Auto) 3600 Lymph # (Auto) 900 L [place] # (Auto) 700 Eos # (Auto) 100 Baso # (Auto) 0 Sodium 137 Potassium 4.8 Chloride 104 Carbon Dioxide 15 L BUN 173 H* Creatinine 16.02 H* Estimated GFR 3 L BUN/Creatinine Ratio 10.8 Glucose 111 H Calcium 8.7 Phosphorus Magnesium Total Bilirubin AST ALT Alkaline Phosphatase Total Protein Albumin Globulin Albumin/Globulin Ratio Urine Color Urine Appearance Urine pH Ur Specific F[place] Urine Protein Urine Glucose (UA) Urine Ketones Urine Occult Blood Urine Nitrate Urine Bilirubin Urine Urobilinogen Ur Leukocyte Esterase Urine RBC Urine WBC Ur Squamous Epith Cells Urine Bacteria Urine Sperm Ur Culture Indicated? Ur Random Sodium Urine Creatinine SARS-CoV-2 (PCR) Blood Type A Positive Antibody Screen Negative 11/01/21 11/01/21 21:51 21:51 WBC RBC Hgb 9.4 L Hct 26.9 L MCV MCH MCHC RDW Plt Count Neut % (Auto) Lymph % (Auto) [place] % (Auto) Eos % (Auto) Baso % (Auto) Neut # (Auto) Lymph # (Auto) [place] # (Auto) Eos # (Auto) Baso # (Auto) Sodium 140 Potassium 3.9 Chloride 106 Carbon Dioxide 15 L BUN 146 H* Creatinine 12.1 H* Estimated GFR 4 L BUN/Creatinine Ratio 12.1 Glucose 115 H Calcium 8.7 Phosphorus Magnesium Total Bilirubin AST ALT Alkaline Phosphatase Total Protein Albumin Globulin Albumin/Globulin Ratio Urine Color Urine Appearance Urine pH Ur Specific Fithian Urine Protein Urine Glucose (UA) Urine Ketones Urine Occult Blood Urine Nitrate Urine Bilirubin Urine Urobilinogen Ur Leukocyte Esterase Urine RBC Urine WBC Ur Squamous Epith Cells Urine Bacteria Urine Sperm Ur Culture Indicated? Ur Random Sodium Urine Creatinine SARS-CoV-2 (PCR) Blood Type Antibody Screen Assessment & Plan Assessment & Plan narrative: This is a 81-year-old male with a history of hypertension, depression, spinal stenosis and glaucoma who presents with back pain and urinary frequency with sensation of incomplete bladder emptying. After placement of a Benavides catheter he had immediate return of 3 L of yellow urine with eventual production of 8 L of urine in the next several hours. His initial creatinine was 21 with a BUN of 190. Acute renal failure, present on admission. Active. -secondary to obstructive uropathy, improving with Benavides catheter drainage of 8+ L urine so far -continue close monitoring of electrolytes, magnesium, phosphorus, renal function -coordinate with Nephrology if renal function does not return to normal readily. -Dr. Mejia has recommended continued IV fluids of 150 mL/hr an S -will need Urology follow-up and tamsulosin at discharge. Obstructive uropathy, present on admission. Active. -CT scan suggests BPH as the cause -will need Urology treatment recommendations as an outpatient. -continue Benavides catheter Anasarca, present on admission. Active. -this appears to be a function of the acute renal failure. -cautious IV hydration per Nephrology, adding diuresis as indicated. Anemia of acute renal failure, present on admission. Active. -hemoglobin has dropped from baseline of 11 down to 9.4. This may drop further while diuresis and fluid rebalancing occurs. -transfuse for hemoglobin less than 7. Daily alcohol use, present on admission. Chronic. -monitor for alcohol withdrawal and add CIWA protocol/benzodiazepines if indicated. -patient admits to use of 4-5 drinks of whiskey per day. Last drink was over a week ago. Hypertension, present on admission. Chronic. -continue amlodipine, metoprolol and Losartan Spinal stenosis, present on admission. Active. -continue low back pain treatment of Cyclobenzaprin, Gabapentin and Hydrocodone. Lovenox for DVT prevention Backup decision maker is his friend Giselle Osei. - Time Spent With Patient Critical Care time: I spent a total of [] minutes of critical care time on this patient's care today; this time is exclusive of procedural time.
[2021-11-02] MEDS: SODIUM CHLORIDE 0.9% 1,000 ML 150 ML IV ×2 (00:16→06:44)
[2021-11-02 00:27] VITALS: BMI 26.6
--- NOTE | 2021-11-02 02:41 | PC.ADMIT ---
[address] Admission Note: The patient,Nathanael Aviles,81 y/o, was given written information regarding hospital policies, unit procedures and contact persons. Patient's smoking status: Former smoker. Vital Signs - 8 hr 11/01/21 19:00 11/01/21 19:30 11/01/21 20:00 Temperature Pulse Rate 86 86 95 H Respiratory Rate 18 20 20 Blood Pressure 132/60 130/58 L 145/67 H Pulse Oximetry 100 100 100 11/01/21 20:30 11/01/21 21:33 11/01/21 21:35 Temperature Pulse Rate 99 H 109 H 106 H Respiratory Rate 18 Blood Pressure 177/85 H 156/72 H Pulse Oximetry 99 93 97 11/01/21 22:00 11/01/21 22:01 11/01/21 22:30 Temperature Pulse Rate 93 H 93 H 89 Respiratory Rate 15 19 22 Blood Pressure 124/60 128/66 Pulse Oximetry 98 98 96 11/01/21 23:00 11/01/21 23:30 11/01/21 23:50 Temperature 97.5 F L Pulse Rate 90 89 111 H Respiratory Rate 22 21 19 Blood Pressure 134/61 136/64 109/87 Pulse Oximetry 96 97 98 Patient brought to room 220 at 2350, A/O x3, little forgetful, [place]. Transferred to bed with 1 person assist. C/O pain all over declines offer of PO analgesic, covered in warm blankets. VSS, NS @ 150ml/hr, Benavides catheter in place with scant bloody drainage, ED RN emptied prior to admit.
[2021-11-02 03:51] VITALS: BP 144/63; PULSE 102; RESP 18; TEMP 36.6; O2SAT 97
[2021-11-02 05:16] LABS: Add Manual Diff / Slide Review NO; Basophils Absolute Auto 0 /uL (0-100); Basophils Percent Auto 0.8 % (0-2); Eosinophils Absolute Auto 100 /uL (0-450); Eosinophils Percent Auto 1.4 % (2-4); Hematocrit 25.3 % (41-53); Hemoglobin 8.8 g/dL (13.5-17.5); Lymphocytes Absolute Auto 900 /uL (1100-4500); Lymphocytes Percent Auto 14.5 % (25-40); Mean Corpuscular HGB Conc 34.9 % (30-36); Mean Corpuscular Hemoglobin 31.3 PG (26-34); Mean Corpuscular Volume 89.7 fL (80-100); Monocytes Absolute Auto 700 /uL (0-900); Monocytes Percent Auto 11.2 % (3-14); Neutrophils Absolute Auto 4600 /uL (1500-7000); Neutrophils Percent Auto 72.1 % (50-75); Platelet Count 262 X10^3/uL (150-400); Red Blood Cell Count 2.82 X10^6/uL (4.5-5.9); Red Cell Distribution Width 13.5 % (11.6-14.8); White Blood Cell Count 6.4 X10^3/uL (4.5-11.0)
[2021-11-02 05:49] LABS: Magnesium 2.2 mg/dL (1.6-2.3)
[2021-11-02 05:50] LABS: Calcium 8.8 mg/dL (8.4-10.2); Carbon Dioxide 13 mmol/L (22-32); Chloride 108 mmol/L (98-107); Estimated Glomerular Filt Rate 5 mL/min (>60); Glucose 106 mg/dL (80-110); HEMOLYSIS < 15 (0-50); Potassium 3.7 mmol/L (3.4-5.1); Sodium 140 mmol/L (137-145)
[2021-11-02 06:00] LABS: Blood Urea Nitrogen 130 mg/dL (9-20)
--- NOTE | 2021-11-02 07:53 | DI.US.S_ITS ---
PROCEDURE: US RENAL COMPLETE INDICATIONS: SEVERE SUSAN TECHNIQUE: Real-time scanning was performed of the kidneys and bladder, with image documentation. COMPARISON: [facility], CT, CT KIDNEY URETER BLADDER (KUB), 11/01/2021, 12:01. FINDINGS: Kidneys: Kidneys are normal in size. Right kidney measures 10.5 cm long; left kidney measures 10.8 cm long. Right renal cortical thickness is 1 point a cm; left renal cortical thickness is 2.0 cm. Renal cortical echotexture is normal. There is trace left pelviectasis. No hydronephrosis or nephrolithiasis. No suspicious solid mass lesions. Bladder: Pre-void bladder volume is 291 mL. Post-void residual was not obtained. The ureteral jets were not visualized. A Benavides catheter was present within the bladder. There is an exophytic, lobulated 5.0 x 5.7 x 4.0 cm mass within the bladder. The bladder wall is thickened measuring up to 1.2 cm in diameter. Miscellaneous: No free pelvic fluid. IMPRESSION: 1. Trace left pelviectasis. 2. Bladder wall thickening and exophytic bladder mass. Differential considerations include neoplasm, hematoma and bladder debris. 3. The bladder stone visualized on the comparison CT dated November 01, 2021 is not definitely characterized on the current study. Dictated by: Deysi Ledbetter M.D. on 11/02/2021 at 10:33 Approved by: Deysi Ledbetter M.D. on 11/02/2021 at 10:41
[2021-11-02] MEDS: CALCIUM ACETATE 667 MG CAPSULE 1334 MG PO ×3 (09:02→21:21)
[2021-11-02] MEDS: DORZOLAMIDE/TIMOLOL OPHTH 10 ML 1 DROPS EYE-BOTH ×2 (09:02→21:21)
[2021-11-02] MEDS: SODIUM BICARB 8.4% VIAL 150 MEQ in DEXTROSE 5% WATER 1,000 ML 100 MEQ IV ×2 (09:07→20:22)
[2021-11-02] MEDS: HEPARIN 5,000 UNIT/ML VIAL 5000 UNIT SUBCUT (09:08)
[2021-11-02] MEDS: DOCUSATE 100 MG CAPSULE PO ×2 (09:08→21:21)
[2021-11-02] MEDS: AMLODIPINE 5 MG TABLET PO (09:08)
[2021-11-02] MEDS: MONTELUKAST 10 MG TABLET PO (09:08)
[2021-11-02 09:25] VITALS: BP 133/59; PULSE 98; RESP 20; TEMP 37.2; O2SAT 98
--- NOTE | 2021-11-02 10:24 | P.PN_ITS ---
Subjective Subjective Date Patient Seen: 11/02/21 Interval history: HPI THIS IS A 81-YEAR-OLD MALE WITH A RECENT SPINAL SURGERY AT THE END OF SEPTEMBER THIS YEAR. DENIES ANY HISTORY OF BPH OR OTHER URINARY ISSUES. PRESENTS TO THE ER WITH SIGNIFICANT URINARY RETENTION ACUTE KIDNEY INJURY APPRECIATED WITH A CREATININE ABOVE 21. GFR WAS LOWER THAN 5L. ABBOTT CATHETER INSERTED URGENTLY IN THE ER WITH SIGNIFICANT AMOUNT OF URINE RETURN OBSERVED PATIENT WITH SIGNIFICANT HEMATURIA NOW CBI ORDERED ON 11/02 TODAY PATIENT DENIES ANY PAIN TO THE LOWER ABDOMEN AND PELVIC AREA HEMATURIA REPORTED DENIES ANY SHORTNESS OF BREATH NO CHEST PRESSURE. NO CHEST PAIN NO FEVER OR CHILLS OVERNIGHT REPORTED 1 EPISODE OF ELEVATED PSA IN THE PAST BUT REPEAT TEST WAS WITHIN NORMAL LIMIT SUBSEQUENTLY SPOKE TO NURSING IN REGARD TO THE CASE Exam Vital Signs (past 8 hours): - 11/02/21 03:51 11/02/21 09:25 Temperature 98 F 98.9 F Pulse Rate 102 H 98 H Respiratory Rate 18 20 Blood Pressure 144/63 H 133/59 L Pulse Oximetry 97 98 Oxygen Delivery Method Room Air Oxygen Flow Rate 0 Narrative Exam Narrative: NO ACUTE DISTRESS. PATIENT IS ALERT ORIENTED X3. VITAL SIGNS STABLE HEAD ATRAUMATIC NORMOCEPHALIC NECK : SUPPLE WITHOUT ADENOPATHY NO CAROTID BRUITS EYE: EOMI, PERRLA, NORMAL CONJUNCTIVA; NO JAUNDICE CHEST: REGULAR RATE. NO RUBS. PMI IS NON DISPLACED. NO MURMURS; NORMAL S1- S2 PULMONARY: DECREASED BS OVER THE BASES. MILD BIBASILAR CRACKLES NOTED; NO INCREASED DULLNESS TO PERCUSSION ABDOMEN: SOFT. NONTENDER. NONDISTENDED. BOWEL SOUNDS ARE PRESENT IN ALL 4 QUADRANTS. NO MASS. EXTREMITIES: NO EDEMA.. NO CYANOSIS CLUBBING NOTED. NEURO: CRANIAL NERVES 2-12 GROSSLY INTACT. NO FOCAL NEUROLOGICAL DEFICIT NOTED. MSK: NORMAL RANGE OF MOTION FOR AGE. NO JOINT EFFUSION. SKIN: NORMAL FOR ETHNICITY; NO ECCHYMOSIS. NO LESION. GOOD TURGOR.; NO RASHES : NORMAL EXTERNAL GENITALIA. ABBOTT THE CATHETER IN PLACE. HEMATURIA APPRE CIATED. PSYCH : APPROPRIATE MOOD AND AFFECT. ALERT AWAKE ORIENTED X3 Objective Labs Result Diagrams: 11/02/21 04:50 11/02/21 04:50 Labs: Laboratory Results - last 24 hr 11/01/21 11/01/21 11/01/21 11:35 11:35 11:35 WBC 7.8 RBC 3.05 L Hgb 9.5 L Hct 27.8 L MCV 91.0 MCH 31.1 MCHC 34.2 RDW 13.5 Plt Count 297 Neut % (Auto) 69.5 Lymph % (Auto) 13.1 L [place] % (Auto) 14.3 H Eos % (Auto) 2.3 Baso % (Auto) 0.8 Neut # (Auto) 5400 Lymph # (Auto) 1000 L [place] # (Auto) 1100 H Eos # (Auto) 200 Baso # (Auto) 100 Sodium 133 L Potassium 5.9 H Chloride 96 L Carbon Dioxide 12 L BUN 190 H* Creatinine 21.0 H* Estimated GFR 2 L BUN/Creatinine Ratio 9.0 Glucose 120 H Calcium 8.6 Phosphorus Magnesium Total Bilirubin 0.6 AST 23 ALT 11 Alkaline Phosphatase 66 Total Protein 6.8 Albumin 4.0 Globulin 2.8 Albumin/Globulin Ratio 1.4 Urine Color Yellow Urine Appearance Clear Urine pH 5.0 Ur Specific [place] 1.015 Urine Protein Trace H Urine Glucose (UA) Negative Urine Ketones Negative Urine Occult Blood 2+ H Urine Nitrate Negative Urine Bilirubin Negative Urine Urobilinogen 0.2 Ur Leukocyte Esterase Trace H Urine RBC 10-30/hpf H Urine WBC 1-5/hpf Ur Squamous Epith Cells 1-5 /hpf Urine Bacteria Few (2-10) H Urine Sperm Few present Ur Culture Indicated? Specimen cultured Ur Random Sodium Urine Creatinine SARS-CoV-2 (PCR) Blood Type Antibody Screen 11/01/21 11/01/21 11/01/21 11:35 11:35 11:35 WBC RBC Hgb Hct MCV MCH MCHC RDW Plt Count Neut % (Auto) Lymph % (Auto) [place] % (Auto) Eos % (Auto) Baso % (Auto) Neut # (Auto) Lymph # (Auto) [place] # (Auto) Eos # (Auto) Baso # (Auto) Sodium Potassium Chloride Carbon Dioxide BUN Creatinine Estimated GFR BUN/Creatinine Ratio Glucose Calcium Phosphorus 13.1 H* Magnesium 2.5 H Total Bilirubin AST ALT Alkaline Phosphatase Total Protein Albumin Globulin Albumin/Globulin Ratio Urine Color Urine Appearance Urine pH Ur Specific [place] Urine Protein Urine Glucose (UA) Urine Ketones Urine Occult Blood Urine Nitrate Urine Bilirubin Urine Urobilinogen Ur Leukocyte Esterase Urine RBC Urine WBC Ur Squamous Epith Cells Urine Bacteria Urine Sperm Ur Culture Indicated? Ur Random Sodium 35 Urine Creatinine 83.1 SARS-CoV-2 (PCR) Negative Blood Type Antibody Screen 11/01/21 11/01/21 11/01/21 16:05 17:00 17:00 WBC 5.4 RBC 2.86 L Hgb 9.0 L Hct 25.7 L MCV 89.8 MCH 31.3 MCHC 34.9 RDW 13.5 Plt Count 268 Neut % (Auto) 67.7 Lymph % (Auto) 16.0 L [place] % (Auto) 13.8 Eos % (Auto) 1.8 L Baso % (Auto) 0.7 Neut # (Auto) 3600 Lymph # (Auto) 900 L [place] # (Auto) 700 Eos # (Auto) 100 Baso # (Auto) 0 Sodium 137 Potassium 4.8 Chloride 104 Carbon Dioxide 15 L BUN 173 H* Creatinine 16.02 H* Estimated GFR 3 L BUN/Creatinine Ratio 10.8 Glucose 111 H Calcium 8.7 Phosphorus Magnesium Total Bilirubin AST ALT Alkaline Phosphatase Total Protein Albumin Globulin Albumin/Globulin Ratio Urine Color Urine Appearance Urine pH Ur Specific [place] Urine Protein Urine Glucose (UA) Urine Ketones Urine Occult Blood Urine Nitrate Urine Bilirubin Urine Urobilinogen Ur Leukocyte Esterase Urine RBC Urine WBC Ur Squamous Epith Cells Urine Bacteria Urine Sperm Ur Culture Indicated? Ur Random Sodium Urine Creatinine SARS-CoV-2 (PCR) Blood Type A Positive Antibody Screen Negative 11/01/21 11/01/21 11/02/21 21:51 21:51 04:50 WBC 6.4 RBC 2.82 L Hgb 9.4 L 8.8 L Hct 26.9 L 25.3 L MCV 89.7 MCH 31.3 MCHC 34.9 RDW 13.5 Plt Count 262 Neut % (Auto) 72.1 Lymph % (Auto) 14.5 L [place] % (Auto) 11.2 Eos % (Auto) 1.4 L Baso % (Auto) 0.8 Neut # (Auto) 4600 Lymph # (Auto) 900 L [place] # (Auto) 700 Eos # (Auto) 100 Baso # (Auto) 0 Sodium 140 Potassium 3.9 Chloride 106 Carbon Dioxide 15 L BUN 146 H* Creatinine 12.1 H* Estimated GFR 4 L BUN/Creatinine Ratio 12.1 Glucose 115 H Calcium 8.7 Phosphorus Magnesium Total Bilirubin AST ALT Alkaline Phosphatase Total Protein Albumin Globulin Albumin/Globulin Ratio Urine Color Urine Appearance Urine pH Ur Specific [place] Urine Protein Urine Glucose (UA) Urine Ketones Urine Occult Blood Urine Nitrate Urine Bilirubin Urine Urobilinogen Ur Leukocyte Esterase Urine RBC Urine WBC Ur Squamous Epith Cells Urine Bacteria Urine Sperm Ur Culture Indicated? Ur Random Sodium Urine Creatinine SARS-CoV-2 (PCR) Blood Type Antibody Screen 11/02/21 11/02/21 11/02/21 04:50 04:50 04:50 WBC RBC Hgb Hct MCV MCH MCHC RDW Plt Count Neut % (Auto) Lymph % (Auto) [place] % (Auto) Eos % (Auto) Baso % (Auto) Neut # (Auto) Lymph # (Auto) [place] # (Auto) Eos # (Auto) Baso # (Auto) Sodium 140 Potassium 3.7 Chloride 108 H Carbon Dioxide 13 L BUN 130 H* Creatinine 9.26 H* Estimated GFR 5 L BUN/Creatinine Ratio 14.0 Glucose 106 Calcium 8.8 Phosphorus 8.0 H D Magnesium 2.2 Total Bilirubin AST ALT Alkaline Phosphatase Total Protein Albumin Globulin Albumin/Globulin Ratio Urine Color Urine Appearance Urine pH Ur Specific [place] Urine Protein Urine Glucose (UA) Urine Ketones Urine Occult Blood Urine Nitrate Urine Bilirubin Urine Urobilinogen Ur Leukocyte Esterase Urine RBC Urine WBC Ur Squamous Epith Cells Urine Bacteria Urine Sperm Ur Culture Indicated? Ur Random Sodium Urine Creatinine SARS-CoV-2 (PCR) Blood Type Antibody Screen PENDING SALE TO [facility] Medical History Depression Glaucoma Hearing impaired HNP (herniated nucleus pulposus), lumbar HTN (hypertension) Lumbar foraminal stenosis Sciatica Seasonal allergies Skin rash Spinal stenosis Spondylolisthesis at L4-L5 level Stomach ulcer (1996) Surgical History Hx of appendectomy Hx of bilateral cataract extraction Hx of shoulder surgery Hx of tonsillectomy Family History (Updated 11/02/21 @ 00:09 by Reanna Dimas MD) Father due to natural causes Mother due to natural causes Dementia Brother Kidney lesion Social History household members: none Smoking Status: Former smoker alcohol intake: current Assessment & Plan Assessment & Plan narrative: IMPRESSION ACUTE KIDNEY INJURY. POST RENAL. GFR 5<---2 ELEVATED ANION GAP METABOLIC ACIDOSIS 2/2 ABOVE HYPERPHOSPHATEMIA. SECONDARY TO KIDNEY INJURY HYPOMAGNESEMIA. SECONDARY TO KIDNEY INJURY POSSIBLE ACUTE PYELONEPHRITIS. ON ANTIBIOTICS ANEMIA. CONSIDER ACUTE BLOOD LOSS IN ASSOCIATION WITH CHRONIC DISEASE HEMATURIA. LIKELY SECONDARY TO ABBOTT TRAUMA. CBI STARTED STATUS POST LUMBAR SPINAL FUSION. MONITOR CLOSELY HYPERTENSION PER HISTORY. PLAN SIGNIFICANT HEMATURIA NOTED THIS MORNING WILL DISCONTINUE ALL IV/ORAL ANTICOAGULANT/ANTI-PLATELET SCDS AND RADHA HOSE ONLY FOR DVT PROPHYLAXIS TREND HH PATIENT WILL BE STARTED ON A CBI CONSULT WITH UROLOGY TEAM FOR RECOMMENDATIONS PATIENT STARTED ON PROSCAR AND FLOMAX MONITOR INPUT AND OUTPUT CLOSELY REGARD TO KIDNEY FUNCTIONS WE WILL CHECK A KIDNEY ULTRASOUND THIS MORNING SUSPECT THIS IS POST RENAL RELATED WILL CONSIDER URINE ELECTROLYTES AND URINE EOSINOPHIL IF INDICATED CONSULT WITH NEPHROLOGY THROUGH THE TRANSFER CENTER INDICATED AVOID ALL NEPHROTOXINS PHARMACY TO DOSE ALL MEDICATIONS FOR GFR DAILY LAB TO FOLLOW STRICT INPUT AND OUTPUT AEIOU TO DETERMINE THE NEED FOR POSSIBLE DIALYSIS POTASSIUM IS FAIRLY STABLE HOWEVER ELEVATED PHOSPHORUS AND MAGNESIUM IS NOTED. PATIENT IS ALSO SIGNIFICANTLY ACIDOTIC STARTED ON A BICARB DRIP FOR NOW. CONSIDER ORAL BICARB TABLETS ONCE INDICATED CLINICALLY WILL ALSO START ON PHOSLO. MILD PYURIA NOTED ON UA DONE ON ADMISSION NOT VERY CONVINCING HOWEVER WILL START ON ROCEPHIN DAILY FOR NOW URINE CULTURE HAS BEEN SENT AND WILL FOLLOW CLOSELY PATIENT MAY NEED TRANSFER TO TERTIARY FACILITY TO BE EVALUATED BY NEPHROLOGY WILL REACH OUT TO THE TRANSFER CENTER FOR ASSISTANCE. ADDITIONAL MANAGEMENT PER CLINICAL COURSE PROGNOSIS IS GUARDED Time Spent With Patient Critical Care time: I spent a total of [] minutes of critical care time on this patient's care today; this time is exclusive of procedural time.
[2021-11-02] MEDS: FINASTERIDE 5 MG TABLET PO (10:48)
[2021-11-02] MEDS: TAMSULOSIN 0.4 MG CAPSULE 0.8 MG PO (10:48)
[2021-11-02 12:50] LABS: Hematocrit 24.8 % (41-53); Hemoglobin 8.8 g/dL (13.5-17.5)
[2021-11-02] MEDS: cefTRIAXone 1,000 MG in SODIUM CHLORIDE 0.9% 100 ML 200 MG IV (16:58)
[2021-11-02 17:47] LABS: Hematocrit 22.5 % (41-53); Hemoglobin 7.9 g/dL (13.5-17.5)
[2021-11-02 19:25] VITALS: BP 135/62; PULSE 93; RESP 17; TEMP 37.2; O2SAT 97
[2021-11-02 20:25] VITALS: O2SAT 95
[2021-11-02 23:02] VITALS: BP 137/69; PULSE 94; RESP 17; TEMP 36.8; O2SAT 95
[2021-11-03] VITALS (7 sets, daily range): BP systolic 121–145; BP diastolic 61–76; PULSE 83–96; RESP 16–18; TEMP 36.4–37.5; O2SAT 97–98
[2021-11-03] MEDS: ACETAMINOPHEN 325 MG TABLET PO (00:31)
[2021-11-03] MEDS: OXYCODONE IR 5 MG TABLET 2.5 MG PO (06:10)
[2021-11-03 06:11] LABS: Add Manual Diff / Slide Review NO; Basophils Absolute Auto 0 /uL (0-100); Basophils Percent Auto 0.9 % (0-2); Eosinophils Absolute Auto 100 /uL (0-450); Eosinophils Percent Auto 2.1 % (2-4); Hematocrit 21.7 % (41-53); Hemoglobin 7.7 g/dL (13.5-17.5); Lymphocytes Absolute Auto 1100 /uL (1100-4500); Lymphocytes Percent Auto 22.3 % (25-40); Mean Corpuscular HGB Conc 35.5 % (30-36); Mean Corpuscular Hemoglobin 31.2 PG (26-34); Mean Corpuscular Volume 87.8 fL (80-100); Monocytes Absolute Auto 700 /uL (0-900); Monocytes Percent Auto 13.1 % (3-14); Neutrophils Absolute Auto 3100 /uL (1500-7000); Neutrophils Percent Auto 61.6 % (50-75); Platelet Count 216 X10^3/uL (150-400); Red Blood Cell Count 2.47 X10^6/uL (4.5-5.9); Red Cell Distribution Width 13.5 % (11.6-14.8)
[2021-11-03 06:30] LABS: Alanine Aminotransferase 11 IU/L (<50); Albumin 3.1 g/dL (3.5-5.0); Albumin Globulin Ratio 1.3 (1.0-2.8); Alkaline Phosphatase 54 U/L (38-126); Aspartate Aminotransferase 22 IU/L (17-59); BUN Creatinine Ratio 26.4 (6-22); Bilirubin Total 0.5 mg/dL (0.2-1.3); Blood Urea Nitrogen 62 mg/dL (9-20); Calcium 8.6 mg/dL (8.4-10.2); Carbon Dioxide 29 mmol/L (22-32); Chloride 104 mmol/L (98-107); Estimated Glomerular Filt Rate 27 mL/min (>60); Globulin 2.4 g/dL (1.7-4.1); Glucose 161 mg/dL (80-110); HEMOLYSIS < 15 (0-50); Magnesium 1.6 mg/dL (1.6-2.3); Phosphorous 2.6 mg/dL (2.3-3.7); Potassium 2.8 mmol/L (3.4-5.1); Sodium 138 mmol/L (137-145); Total Protein 5.5 g/dL (6.3-8.2)
[2021-11-03] MEDS: MONTELUKAST 10 MG TABLET PO (08:35)
[2021-11-03] MEDS: DORZOLAMIDE/TIMOLOL OPHTH 10 ML 1 DROPS EYE-BOTH ×2 (08:35→21:05)
[2021-11-03] MEDS: AMLODIPINE 5 MG TABLET PO (08:35)
[2021-11-03] MEDS: DOCUSATE 100 MG CAPSULE PO ×2 (08:35→21:04)
[2021-11-03] MEDS: FINASTERIDE 5 MG TABLET PO (08:35)
[2021-11-03] MEDS: CALCIUM ACETATE 667 MG CAPSULE 1334 MG PO ×2 (08:35→16:52)
[2021-11-03] MEDS: TAMSULOSIN 0.4 MG CAPSULE 0.8 MG PO (08:35)
[2021-11-03] MEDS: SODIUM BICARB 8.4% VIAL 150 MEQ in DEXTROSE 5% WATER 1,000 ML 100 MEQ IV (09:36)
[2021-11-03] MEDS: POTASSIUM CHLORIDE IN WATER 10 MEQ/100 ML PIGGYBACK 100 MEQ IV ×2 (12:05→12:57)
[2021-11-03] MEDS: POTASSIUM CHLORIDE 20 MEQ TAB 40 MEQ PO ×3 (12:57→21:04)
--- NOTE | 2021-11-03 15:34 | CM.DANOTE ---
Initial DCP Assessment Note Pt is a 81 yo male, resident of [place], who presents with back pain and urinary frequency with sensation of incomplete bladder emptying, placement of hess cath in the ER with return of 3 L and soon after 8L total over several hours. Patient initially considered for transfer for dialysis and inevitably kept here for medical management of acute renal failure ; RN Dona states today patient slowly improving. PCP: Cony Rodriguez Payer: MCR/[employer] Reviewed chart, met w/patient to introduce role. Patient lives at home, alone, states no children and says he has friends in [place] that I could call to help me Patient irritated that this V[employer]ERIN[employer] TOXICOLOGIST woke him up so visit kept brief. Discussed HH and patient agreeable, says that would be helpful. Provided [facility] choice list and patient has no HH agency preference Faxed HH referral to [facility] , available for f/u for RN/PT within 24-48 hrs in [place] according to [facility] Plan: DC home expected when medically stable, unsure when that will be, via friend pov, [facility] and close outpatient f/u recommended NIRAJ Song Discharge Planning/Care Management CM Discharge Assessment Start: 11/03/21 15:31 Freq: Status: Active Protocol: Document 11/03/21 15:31 EVAN (Rec: 11/03/21 15:34 EVAN [email or web address]) Discharge Planning Assessment Assigned Product Marketing Executive NIRAJ Gomez DPOA/Assigned Designee Name kurt Felix Contact Information [phone] Advance Directives? Yes Advance Directives on File No History Provided By Patient Prior Living Arrangements House Household Members none Type of transporation used prior to Drives own vehicle admit Independent with ADL's Yes Is patient alert and oriented? Yes Patient/Family Preference Home with Home Health Barriers to Discharge No Comment Patient wants to return home upon DC Discharge Plan Home Transportation Arrangement Friend Referrals Initiated Home Health Additional Comment [facility] Medicare Choice List Provided Yes SNF/HH Preference None Contact Name/Phone [facility] , 24-48 hr availability for [place] Has Agency SNF been contacted Yes Comment Faxed clinical packet w/ HH order and completed and signed F2F
[2021-11-03] MEDS: cefTRIAXone 1,000 MG in SODIUM CHLORIDE 0.9% 100 ML 200 MG IV (16:53)
--- NOTE | 2021-11-03 17:02 | P.PN_ITS ---
Subjective Subjective Date Patient Seen: 11/03/21 Interval history: HPI THIS IS A 81-YEAR-OLD MALE WITH A RECENT SPINAL? SURGERY AT THE END OF SEPTEMBER THIS YEAR. DENIES ANY HISTORY OF BPH OR OTHER URINARY ISSUES. PRESENTS TO THE ER WITH SIGNIFICANT URINARY RETENTION ACUTE KIDNEY INJURY APPRECIATED WITH A CREATININE ABOVE 21.? GFR WAS LOWER THAN 5L. ABBOTT CATHETER INSERTED URGENTLY IN THE ER WITH SIGNIFICANT AMOUNT OF URINE RETURN OBSERVED PATIENT WITH SIGNIFICANT HEMATURIA NOW CBI ORDERED ON 11/02 TODAY CONTINUE TO REPORT NO SIGNIFICANT PAIN TO THE LOWER ABDOMEN AND PELVIC AREA NO FEVER OR CHILLS OVERNIGHT NO SHORTNESS OF BREATH NO CHEST PRESSURE.? NO CHEST PAIN NO OTHER SIGNIFICANT ISSUES REPORTED BY NURSING OVERNIGHT Exam Vital Signs (past 8 hours): - 11/03/21 11:00 11/03/21 14:59 Temperature 97.9 F 97.6 F Pulse Rate 83 83 Respiratory Rate 17 18 Blood Pressure 127/64 145/76 H Pulse Oximetry 97 98 Oxygen Delivery Method Room Air Oxygen Flow Rate 0 Narrative Exam Narrative: NO ACUTE DISTRESS.? PATIENT IS ALERT ORIENTED X3. VITAL SIGNS STABLE HEAD ATRAUMATIC NORMOCEPHALIC NECK : SUPPLE WITHOUT ADENOPATHY NO CAROTID BRUITS EYE:? EOMI, PERRLA, NORMAL CONJUNCTIVA; NO JAUNDICE CHEST:? REGULAR RATE.? ? NO RUBS.? PMI IS NON DISPLACED.? NO MURMURS; NORMAL S1- S2 PULMONARY:? DECREASED BS OVER THE BASES.? MILD BIBASILAR CRACKLES NOTED; NO INCREASED DULLNESS TO PERCUSSION ABDOMEN:? SOFT.? NONTENDER.? NONDISTENDED.? BOWEL SOUNDS ARE PRESENT IN ALL 4 QUADRANTS.? NO MASS. EXTREMITIES: NO EDEMA..? NO CYANOSIS CLUBBING NOTED. NEURO:? CRANIAL NERVES 2-12 GROSSLY INTACT. NO FOCAL NEUROLOGICAL DEFICIT NOTED. MSK:? NORMAL RANGE OF MOTION FOR AGE.? NO JOINT EFFUSION. SKIN:? NORMAL FOR ETHNICITY; NO ECCHYMOSIS.? NO LESION. ? GOOD? TURGOR.; NO RASHES :? NORMAL EXTERNAL GENITALIA.? ABBOTT THE CATHETER IN PLACE.? HEMATURIA APPRECIATED. PSYCH :? APPROPRIATE MOOD AND AFFECT.? ALERT AWAKE ORIENTED X3 Objective Labs Result Diagrams: 11/03/21 05:35 11/03/21 05:35 Labs: Laboratory Results - last 24 hr 11/02/21 11/03/21 11/03/21 17:30 05:35 05:35 WBC 5.0 RBC 2.47 L Hgb 7.9 L 7.7 L Hct 22.5 L 21.7 L MCV 87.8 MCH 31.2 MCHC 35.5 RDW 13.5 Plt Count 216 Neut % (Auto) 61.6 Lymph % (Auto) 22.3 L [place] % (Auto) 13.1 Eos % (Auto) 2.1 Baso % (Auto) 0.9 Neut # (Auto) 3100 Lymph # (Auto) 1100 [place] # (Auto) 700 Eos # (Auto) 100 Baso # (Auto) 0 Sodium 138 Potassium 2.8 L Chloride 104 Carbon Dioxide 29 BUN 62 H Creatinine 2.35 H Estimated GFR 27 L BUN/Creatinine Ratio 26.4 H Glucose 161 H Calcium 8.6 Phosphorus 2.6 D Magnesium 1.6 Total Bilirubin 0.5 AST 22 ALT 11 Alkaline Phosphatase 54 Total Protein 5.5 L Albumin 3.1 L Globulin 2.4 Albumin/Globulin Ratio 1.3 PFSH Medical History Depression Glaucoma Hearing impaired HNP (herniated nucleus pulposus), lumbar HTN (hypertension) Lumbar foraminal stenosis Sciatica Seasonal allergies Skin rash Spinal stenosis Spondylolisthesis at L4-L5 level Stomach ulcer (1996) Surgical History Hx of appendectomy Hx of bilateral cataract extraction Hx of shoulder surgery Hx of tonsillectomy Family History (Updated 11/02/21 @ 00:09 by Reanna Dimas MD) Father due to natural causes Mother due to natural causes Dementia Brother Kidney lesion Social History household members: none Smoking Status: Former smoker alcohol intake: current Assessment & Plan Assessment & Plan narrative: IMPRESSION ACUTE KIDNEY INJURY.? POST RENAL.? GFR 27<--- 5<---2 ELEVATED ANION GAP METABOLIC ACIDOSIS 2/2 ABOVE. RESOLVED HYPERPHOSPHATEMIA.? SECONDARY TO KIDNEY INJURY HYPOMAGNESEMIA.? SECONDARY TO KIDNEY INJURY. RESOLVED HYPOKALEMIA. REPLACEMENT PER PHARMACY POSSIBLE ACUTE PYELONEPHRITIS.? ON ANTIBIOTICS. FOLLOW CULTURES ANEMIA.? CONSIDER ACUTE BLOOD LOSS IN ASSOCIATION WITH CHRONIC DISEASE. MONITOR CLOSELY HEMATURIA.? LIKELY SECONDARY TO ABBOTT TRAUMA.? CBI STARTED POSSIBLE BLADDER MASS. TO BE EVALUATED FURTHER OUTPATIENT BY UROLOGY STATUS POST LUMBAR SPINAL FUSION.? MONITOR CLOSELY HYPERTENSION PER HISTORY. PLAN PATIENT CONTINUED TO HAVE SIGNIFICANT HEMATURIA HOWEVER HEMOGLOBIN REMAINS ABOVE 7 WILL TRANSFUSE ONLY IF PATIENT BECOMES SYMPTOMATIC FOR HEMOGLOBIN LESS THAN 7. CONTINUE TO TREND CLOSELY PATIENT ALSO HAD ULTRASOUND WHICH REPORT APPEARS TO INDICATE A POSSIBLE BLADDER MASS HOWEVER THIS WAS NOT EVIDENT IN LAST CT SCAN DONE A COUPLE DAYS AGO THIS IS LIKELY THE BLADDER STONE OR POSSIBLE COAGULATED BLOOD PRODUCTS WHICH IS BEING SEEN ON THE ULTRASOUND. IN ANY CASE, PATIENT WILL NEED FURTHER EVALUATION BY UROLOGY OUTPATIENT THIS COULD BE FURTHER EVALUATED. HIS KIDNEY FUNCTION ARE IMPROVING WITH A GFR OF WELL ABOVE 20 AT THIS TIME. WILL SWITCH IV FLUID TO NORMAL SALINE WITH KCL DISCONTINUE BICARB DRIP. ACIDOSIS HAS RESOLVED. WILL ALSO DISCONTINUE PHOSLO CONTINUE TO MONITOR LAB CLOSELY ADDITIONAL MANAGEMENT AND DISCHARGE PER CLINICAL COURSE LIKELY DISCHARGE TO HOME WITH HOME HEALTH ONCE CLINICALLY INDICATED 11/02 SIGNIFICANT HEMATURIA NOTED THIS MORNING WILL DISCONTINUE ALL IV/ORAL ANTICOAGULANT/ANTI-PLATELET SCDS AND RADHA HOSE ONLY FOR DVT PROPHYLAXIS TREND HH PATIENT WILL BE STARTED ON A CBI CONSULT WITH UROLOGY TEAM FOR RECOMMENDATIONS PATIENT STARTED ON PROSCAR AND FLOMAX MONITOR INPUT AND OUTPUT CLOSELY REGARD TO KIDNEY FUNCTIONS WE WILL CHECK A KIDNEY ULTRASOUND THIS MORNING SUSPECT THIS IS POST RENAL RELATED WILL CONSIDER URINE ELECTROLYTES AND URINE EOSINOPHIL IF INDICATED CONSULT WITH NEPHROLOGY THROUGH THE TRANSFER CENTER INDICATED AVOID ALL NEPHROTOXINS PHARMACY TO DOSE ALL MEDICATIONS FOR GFR DAILY LAB TO FOLLOW STRICT INPUT AND OUTPUT AEIOU TO DETERMINE THE NEED FOR POSSIBLE DIALYSIS POTASSIUM IS FAIRLY STABLE HOWEVER ELEVATED PHOSPHORUS AND MAGNESIUM IS NOTED. PATIENT IS ALSO SIGNIFICANTLY ACIDOTIC STARTED ON A BICARB DRIP FOR NOW. CONSIDER ORAL BICARB TABLETS ONCE INDICATED CLINICALLY WILL ALSO START ON PHOSLO. MILD PYURIA NOTED ON UA DONE ON ADMISSION NOT VERY CONVINCING HOWEVER WILL START ON ROCEPHIN DAILY FOR NOW URINE CULTURE HAS BEEN SENT AND WILL FOLLOW CLOSELY PATIENT MAY NEED TRANSFER TO TERTIARY FACILITY TO BE EVALUATED BY NEPHROLOGY WILL REACH OUT TO THE TRANSFER CENTER FOR ASSISTANCE. ADDITIONAL MANAGEMENT PER CLINICAL COURSE PROGNOSIS IS GUARDED Time Spent With Patient Critical Care time: I spent a total of [] minutes of critical care time on this patient's care today; this time is exclusive of procedural time.
[2021-11-03] MEDS: KCL 20 MEQ IN NS 1,000 ML 84 MEQ IV (18:00)
[2021-11-03] MEDS: CYCLOBENZAPRINE 10 MG TABLET PO (21:04)
[2021-11-04] VITALS (7 sets, daily range): BP systolic 131–155; BP diastolic 60–84; PULSE 81–103; RESP 16–19; TEMP 36.2–37.4; O2SAT 97–99
[2021-11-04] MEDS: ACETAMINOPHEN 325 MG TABLET PO (05:15)
[2021-11-04 05:35] LABS: Add Manual Diff / Slide Review NO; Basophils Absolute Auto 0 /uL (0-100); Basophils Percent Auto 0.7 % (0-2); Eosinophils Absolute Auto 400 /uL (0-450); Eosinophils Percent Auto 6.5 % (2-4); Hematocrit 21.4 % (41-53); Hemoglobin 7.5 g/dL (13.5-17.5); Lymphocytes Absolute Auto 1100 /uL (1100-4500); Lymphocytes Percent Auto 17.4 % (25-40); Mean Corpuscular Hemoglobin 31.5 PG (26-34); Mean Corpuscular Volume 89.9 fL (80-100); Monocytes Absolute Auto 900 /uL (0-900); Monocytes Percent Auto 14.5 % (3-14); Neutrophils Absolute Auto 3900 /uL (1500-7000); Neutrophils Percent Auto 60.9 % (50-75); Platelet Count 194 X10^3/uL (150-400); Red Blood Cell Count 2.38 X10^6/uL (4.5-5.9); Red Cell Distribution Width 13.3 % (11.6-14.8); White Blood Cell Count 6.5 X10^3/uL (4.5-11.0)
[2021-11-04 05:45] LABS: Alanine Aminotransferase 13 IU/L (<50); Albumin 3.1 g/dL (3.5-5.0); Albumin Globulin Ratio 1.3 (1.0-2.8); Alkaline Phosphatase 54 U/L (38-126); Aspartate Aminotransferase 28 IU/L (17-59); BUN Creatinine Ratio 22.2 (6-22); Bilirubin Total 0.5 mg/dL (0.2-1.3); Blood Urea Nitrogen 28 mg/dL (9-20); Calcium 8.5 mg/dL (8.4-10.2); Carbon Dioxide 25 mmol/L (22-32); Chloride 109 mmol/L (98-107); Estimated Glomerular Filt Rate 58 mL/min (>60); Globulin 2.4 g/dL (1.7-4.1); Glucose 118 mg/dL (80-110); HEMOLYSIS < 15 (0-50); Magnesium 1.3 mg/dL (1.6-2.3); Phosphorous 1.7 mg/dL (2.3-3.7); Potassium 3.9 mmol/L (3.4-5.1); Sodium 138 mmol/L (137-145); Total Protein 5.5 g/dL (6.3-8.2)
[2021-11-04] MEDS: KCL 20 MEQ IN NS 1,000 ML 84 MEQ IV (05:45)
[2021-11-04] MEDS: TAMSULOSIN 0.4 MG CAPSULE 0.8 MG PO (08:41)
[2021-11-04] MEDS: IRON SUCROSE 200 MG in SODIUM CHLORIDE 0.9% 100 ML 220 MG IV (08:41)
[2021-11-04] MEDS: DORZOLAMIDE/TIMOLOL OPHTH 10 ML 1 DROPS EYE-BOTH ×2 (08:41→20:23)
[2021-11-04] MEDS: ASCORBIC ACID 500 MG TABLET PO ×2 (08:41→20:22)
[2021-11-04] MEDS: SODIUM,POTASSIUM PHOSPHATES PACKET 2 EACH PO ×2 (08:42→13:15)
[2021-11-04] MEDS: AMLODIPINE 5 MG TABLET PO (08:42)
[2021-11-04] MEDS: MONTELUKAST 10 MG TABLET PO (08:42)
[2021-11-04] MEDS: NEPHRO-VITE RX TABLET 1 TAB PO (08:42)
[2021-11-04] MEDS: FINASTERIDE 5 MG TABLET PO (08:42)
[2021-11-04] MEDS: DOCUSATE 100 MG CAPSULE PO (08:42)
[2021-11-04] MEDS: MAGNESIUM SULFATE 2 GM/50 ML PIGGYBACK IV (11:18)
--- NOTE | 2021-11-04 11:32 | P.PN_ITS ---
Subjective Subjective Date Patient Seen: 11/04/21 Interval history: HPI THIS IS A 81-YEAR-OLD MALE WITH A RECENT SPINAL? SURGERY AT THE END OF SEPTEMBER THIS YEAR. DENIES ANY HISTORY OF BPH OR OTHER URINARY ISSUES. PRESENTS TO THE ER WITH SIGNIFICANT URINARY RETENTION ACUTE KIDNEY INJURY APPRECIATED WITH A CREATININE ABOVE 21.? GFR WAS LOWER THAN 5L. ABBOTT CATHETER INSERTED URGENTLY IN THE ER WITH SIGNIFICANT AMOUNT OF URINE RETURN OBSERVED PATIENT WITH SIGNIFICANT HEMATURIA NOW CBI ORDERED ON 11/02 TODAY REPORTED THAT HE HAD A GOOD NIGHT OF SLEEP DENIED ANY FEVER OR CHILLS OVERNIGHT. REPORTED SOME PINKISH URINE IN THE ABBOTT CATHETER TODAY. NO OTHER SIGNIFICANT ISSUES REPORTED BY NURSING OVERNIGHT Exam Vital Signs (past 8 hours): - 11/04/21 04:10 11/04/21 07:37 11/04/21 10:56 Temperature 98.6 F 98.4 F 97.2 F L Pulse Rate 92 H 94 H 81 Respiratory Rate 19 18 16 Blood Pressure 155/78 H 147/84 H 141/65 H Pulse Oximetry 97 98 98 Oxygen Delivery Method Room Air Oxygen Flow Rate 0 Narrative Exam Narrative: NO ACUTE DISTRESS.? PATIENT IS ALERT ORIENTED X3. VITAL SIGNS STABLE HEAD ATRAUMATIC NORMOCEPHALIC NECK : SUPPLE WITHOUT ADENOPATHY NO CAROTID BRUITS EYE:? EOMI, PERRLA, NORMAL CONJUNCTIVA; NO JAUNDICE CHEST:? REGULAR RATE.? ? NO RUBS.? PMI IS NON DISPLACED.? NO MURMURS; NORMAL S1- S2 PULMONARY:? DECREASED BS OVER THE BASES.? MILD BIBASILAR CRACKLES NOTED; NO INCREASED DULLNESS TO PERCUSSION ABDOMEN:? SOFT.? NONTENDER.? NONDISTENDED.? BOWEL SOUNDS ARE PRESENT IN ALL 4 QUADRANTS.? NO MASS. EXTREMITIES: NO EDEMA..? NO CYANOSIS CLUBBING NOTED. NEURO:? CRANIAL NERVES 2-12 GROSSLY INTACT. NO FOCAL NEUROLOGICAL DEFICIT NOTED. MSK:? NORMAL RANGE OF MOTION FOR AGE.? NO JOINT EFFUSION. SKIN:? NORMAL FOR ETHNICITY; NO ECCHYMOSIS.? NO LESION. ? GOOD? TURGOR.; NO RASHES :? NORMAL EXTERNAL GENITALIA.? ABBOTT THE CATHETER IN PLACE. YELLOWISH URINE IN BAG THIS AM PSYCH :? APPROPRIATE MOOD AND AFFECT.? ALERT AWAKE ORIENTED X3 Objective Labs Result Diagrams: 11/04/21 04:59 11/04/21 04:59 Labs: Laboratory Results - last 24 hr 11/04/21 11/04/21 04:59 04:59 WBC 6.5 RBC 2.38 L Hgb 7.5 L Hct 21.4 L MCV 89.9 MCH 31.5 MCHC 35.0 RDW 13.3 Plt Count 194 Neut % (Auto) 60.9 Lymph % (Auto) 17.4 L [place] % (Auto) 14.5 H Eos % (Auto) 6.5 H Baso % (Auto) 0.7 Neut # (Auto) 3900 Lymph # (Auto) 1100 [place] # (Auto) 900 Eos # (Auto) 400 Baso # (Auto) 0 Sodium 138 Potassium 3.9 Chloride 109 H Carbon Dioxide 25 BUN 28 H Creatinine 1.26 H Estimated GFR 58 L BUN/Creatinine Ratio 22.2 H Glucose 118 H Calcium 8.5 Phosphorus 1.7 L Magnesium 1.3 L Total Bilirubin 0.5 AST 28 ALT 13 Alkaline Phosphatase 54 Total Protein 5.5 L Albumin 3.1 L Globulin 2.4 Albumin/Globulin Ratio 1.3 PFSH Medical History Depression Glaucoma Hearing impaired HNP (herniated nucleus pulposus), lumbar HTN (hypertension) Lumbar foraminal stenosis Sciatica Seasonal allergies Skin rash Spinal stenosis Spondylolisthesis at L4-L5 level Stomach ulcer (1996) Surgical History Hx of appendectomy Hx of bilateral cataract extraction Hx of shoulder surgery Hx of tonsillectomy Family History (Updated 11/02/21 @ 00:09 by Reanna Dimas MD) Father due to natural causes Mother due to natural causes Dementia Brother Kidney lesion Social History household members: none Smoking Status: Former smoker alcohol intake: current Assessment & Plan Assessment & Plan narrative: Assessment & Plan Assessment & Plan narrative: IMPRESSION ACUTE KIDNEY INJURY.? POST RENAL.? GFR 58<----27<--- 5<---2 ELEVATED ANION GAP METABOLIC ACIDOSIS 2/2 ABOVE.? RESOLVED HYPERPHOSPHATEMIA.? SECONDARY TO KIDNEY INJURY. RESOLVED. DECREASED PHOSPHORUS NOTED TODAY HYPOMAGNESEMIA.? SECONDARY TO KIDNEY INJURY.? RESOLVED ?HYPOKALEMIA.? REPLACEMENT PER PHARMACY. RESOLVED POSSIBLE ACUTE PYELONEPHRITIS.? CULTURES REMAIN NEGATIVE. DC ANTIBIOTICS ANEMIA.? LIKELY ACUTE BLOOD LOSS IN ASSOCIATION WITH CHRONIC DISEASE.? CO NTINUE MONITOR CLOSELY HEMATURIA.? LIKELY SECONDARY TO ABBOTT TRAUMA.? RESOLVED ?POSSIBLE BLADDER MASS.?UNLIKELY HOWEVER TO BE EVALUATED FURTHER OUTPATIENT BY UROLOGY STATUS POST LUMBAR SPINAL FUSION.? MONITOR CLOSELY HYPERTENSION PER HISTORY. PLAN PATIENT CREATININE CONTINUE TO IMPROVE THE GFR CLOSE TO 60 L NOTED TODAY AND LABS GOOD ADEQUATE URINE PROTECTION NOTED ON THE ABBOTT BAG. WILL KEEP ABBOTT IN PLACE UNTIL UROLOGY SEES PATIENT WHICH WILL BE OUTPATIENT WILL DISCONTINUE ANTIBIOTICS TODAY DISCONTINUE IV FLUID WELL REPLACEMENT FOR HIS LOW PHOSPHORUS AND MAGNESIUM ORDERED CONTINUE TO FOLLOW LAB CLOSELY IF HE CONTINUED TO SHOW IMPROVEMENT AND IS STABLE, SHOULD BE ABLE TO BE DISCHARGED IN THE MORNING TO HOME ADDITIONAL AGENT PER CLINICAL COURSE 11/03 ?PATIENT CONTINUED TO HAVE SIGNIFICANT HEMATURIA ?HOWEVER HEMOGLOBIN REMAINS ABOVE 7 ?WILL TRANSFUSE ONLY IF PATIENT BECOMES SYMPTOMATIC FOR HEMOGLOBIN LESS THAN 7. ? CONTINUE TO TREND CLOSELY ?PATIENT ALSO HAD ULTRASOUND WHICH REPORT APPEARS TO INDICATE A POSSIBLE BLADDER MASS ?HOWEVER THIS WAS NOT EVIDENT IN? LAST CT SCAN DONE A COUPLE DAYS AGO ?THIS IS LIKELY THE BLADDER STONE? OR POSSIBLE COAGULATED BLOOD PRODUCTS WHICH IS BEING SEEN ON THE ULTRASOUND. ? IN ANY CASE, PATIENT WILL NEED? FURTHER EVALUATION BY UROLOGY OUTPATIENT THIS COULD BE FURTHER EVALUATED. ? HIS KIDNEY FUNCTION ARE IMPROVING WITH A GFR OF WELL ABOVE 20 AT THIS TIME. ? WILL SWITCH IV FLUID TO NORMAL SALINE WITH KCL ?DISCONTINUE BICARB DRIP.? ACIDOSIS HAS RESOLVED. ? WILL ALSO DISCONTINUE PHOSLO ?CONTINUE TO MONITOR LAB CLOSELY ?ADDITIONAL MANAGEMENT? AND DISCHARGE PER CLINICAL COURSE ?LIKELY DISCHARGE TO HOME WITH HOME HEALTH ONCE CLINICALLY INDICATED 11/02 SIGNIFICANT HEMATURIA NOTED THIS MORNING WILL DISCONTINUE ALL IV/ORAL ANTICOAGULANT/ANTI-PLATELET SCDS AND RADHA HOSE ONLY FOR DVT PROPHYLAXIS TREND HH PATIENT WILL BE STARTED ON A CBI CONSULT WITH UROLOGY TEAM FOR RECOMMENDATIONS PATIENT STARTED ON PROSCAR AND FLOMAX MONITOR INPUT AND OUTPUT CLOSELY REGARD TO KIDNEY FUNCTIONS WE WILL CHECK A KIDNEY ULTRASOUND THIS MORNING SUSPECT THIS IS POST RENAL RELATED WILL CONSIDER URINE ELECTROLYTES AND URINE EOSINOPHIL IF INDICATED CONSULT WITH NEPHROLOGY THROUGH THE TRANSFER CENTER INDICATED AVOID ALL NEPHROTOXINS PHARMACY TO DOSE ALL MEDICATIONS FOR GFR DAILY LAB TO FOLLOW STRICT INPUT AND OUTPUT AEIOU TO DETERMINE THE NEED FOR POSSIBLE DIALYSIS POTASSIUM IS FAIRLY STABLE HOWEVER ELEVATED PHOSPHORUS AND MAGNESIUM IS NOTED. PATIENT IS ALSO SIGNIFICANTLY ACIDOTIC STARTED ON A BICARB DRIP FOR NOW. CONSIDER ORAL BICARB TABLETS ONCE INDICATED CLINICALLY WILL ALSO START ON PHOSLO. MILD PYURIA NOTED ON UA DONE ON ADMISSION NOT VERY CONVINCING HOWEVER WILL START ON ROCEPHIN DAILY FOR NOW URINE CULTURE HAS BEEN SENT AND WILL FOLLOW CLOSELY PATIENT MAY NEED TRANSFER TO TERTIARY FACILITY TO BE EVALUATED BY NEPHROLOGY WILL REACH OUT TO THE TRANSFER CENTER FOR ASSISTANCE. ADDITIONAL MANAGEMENT PER CLINICAL COURSE PROGNOSIS IS GUARDED Time Spent With Patient Critical Care time: I spent a total of [] minutes of critical care time on this patient's care today; this time is exclusive of procedural time.
--- NOTE | 2021-11-04 20:07 | PC.NURSE ---
accessed to chart for floating
[2021-11-05 05:04] LABS: Add Manual Diff / Slide Review NO; Basophils Absolute Auto 100 /uL (0-100); Eosinophils Absolute Auto 500 /uL (0-450); Eosinophils Percent Auto 7.5 % (2-4); Hemoglobin 7.7 g/dL (13.5-17.5); Lymphocytes Absolute Auto 1100 /uL (1100-4500); Lymphocytes Percent Auto 16.9 % (25-40); Mean Corpuscular HGB Conc 34.9 % (30-36); Mean Corpuscular Hemoglobin 31.1 PG (26-34); Mean Corpuscular Volume 89.2 fL (80-100); Monocytes Absolute Auto 700 /uL (0-900); Monocytes Percent Auto 10.5 % (3-14); Neutrophils Absolute Auto 4200 /uL (1500-7000); Neutrophils Percent Auto 64.1 % (50-75); Platelet Count 184 X10^3/uL (150-400); Red Blood Cell Count 2.46 X10^6/uL (4.5-5.9); Red Cell Distribution Width 13.3 % (11.6-14.8); White Blood Cell Count 6.5 X10^3/uL (4.5-11.0)
[2021-11-05 05:10] VITALS: BP 148/71; PULSE 101; RESP 18; TEMP 36.8; O2SAT 98
[2021-11-05 05:22] LABS: Alanine Aminotransferase 16 IU/L (<50); Albumin 3.1 g/dL (3.5-5.0); Albumin Globulin Ratio 1.2 (1.0-2.8); Alkaline Phosphatase 61 U/L (38-126); Aspartate Aminotransferase 31 IU/L (17-59); BUN Creatinine Ratio 16.7 (6-22); Bilirubin Total 0.6 mg/dL (0.2-1.3); Blood Urea Nitrogen 17 mg/dL (9-20); Calcium 8.4 mg/dL (8.4-10.2); Carbon Dioxide 22 mmol/L (22-32); Chloride 108 mmol/L (98-107); Estimated Glomerular Filt Rate > 60 mL/min (>60); Globulin 2.6 g/dL (1.7-4.1); Glucose 109 mg/dL (80-110); HEMOLYSIS < 15 (0-50); Magnesium 1.4 mg/dL (1.6-2.3); Phosphorous 2.3 mg/dL (2.3-3.7); Potassium 3.6 mmol/L (3.4-5.1); Sodium 136 mmol/L (137-145); Total Protein 5.7 g/dL (6.3-8.2)
[2021-11-05] MEDS: MAGNESIUM SULFATE 2 GM/50 ML PIGGYBACK IV (08:05)
[2021-11-05] MEDS: SODIUM,POTASSIUM PHOSPHATES PACKET 2 EACH PO (08:05)
[2021-11-05] MEDS: ASCORBIC ACID 500 MG TABLET PO (08:18)
[2021-11-05] MEDS: AMLODIPINE 5 MG TABLET PO (08:18)
[2021-11-05] MEDS: TAMSULOSIN 0.4 MG CAPSULE 0.8 MG PO (08:19)
[2021-11-05] MEDS: MONTELUKAST 10 MG TABLET PO (08:19)
[2021-11-05] MEDS: FINASTERIDE 5 MG TABLET PO (08:19)
[2021-11-05] MEDS: NEPHRO-VITE RX TABLET 1 TAB PO (08:20)
[2021-11-05] MEDS: DORZOLAMIDE/TIMOLOL OPHTH 10 ML 1 DROPS EYE-BOTH (08:20)
--- NOTE | 2021-11-05 08:45 | PC.NURSE ---
Patient resting in bed, Left Foot has a 3 x 5.5 x 0.1cm wound to the dorsum of the foot where it appears that a large bulla has burst. The wound bed is slough/collagen with well-defined, attached edges and no drainage noted at this time. There is also a 2 x 2.5 x 0.1cm wound to the Left lateral malleolus which also appears to be a burst bulla, also slough/ collagen with well-defined, attached edges. This wound does have a small amount of serous drainage noted. Patient says he has had these wounds for a few weeks. Left foot has 2+ edema, dorsalis pedis pulse faintly palpated, capillary refill < 3 seconds. These wounds are gently cleansed with saline and protective bordered foam dressing placed to each wound. It is my recommendation patient follow up at wound healing center after discharge from hospital for further care of these wounds.
[2021-11-05 08:51] VITALS: BP 154/74; PULSE 98; RESP 19; TEMP 36.9; O2SAT 98
[2021-11-05 12:00] VITALS: BP 139/70; PULSE 107; RESP 18; TEMP 37.1; O2SAT 100
--- NOTE | 2021-11-05 13:45 | PM.DS.1 ---
History of Present Illness History of Present Illness Date Patient Seen: 11/05/21 Chief complaint: States acute kidney/liver failure Narrative: History of Present Illness History of Present Illness Date Patient Seen: 11/01/21 Time Patient Seen: 23:12 Chief complaint: States acute kidney/liver failure Narrative: This is a 81-year-old male with a history of hypertension, depression, spinal stenosis and glaucoma who presents with back pain and urinary frequency with sensation of incomplete bladder emptying.? After placement of a Abbott catheter he had immediate return of 3 L of yellow urine with eventual production of 8 L of urine in the next several hours.? His initial creatinine was 21 with a BUN of 190.? As the hours have passed in the ED his creatinine has dropped to 16 and then to 12.? He has significant anasarca.? The magnesium was 2.5 with a phosphorus of 13.1.? His hemoglobin has dropped from 11 down to 9.4.? The UA has 1-5 WBCs and 10-30 RBCs.? He has a bladder stone measuring 1.5 x 0.9 cm and evidence of hydronephrosis with prostate enlargement.? He underwent lumbar spine laminectomy 1 month ago here and did not seem to have any urinary symptoms before that surgery.? An MRI of the spine has been repeated to ensure that there is no acute neurological cause of the urinary retention and nothing new has been identified.? He has been discussed with Nephrology, Dr. Mejia who advised that since his renal failure seems to be explained by the obstructive uropathy he can be hydrated here while observing for continued improvement in his renal function without immediate need for dialysis.? His presenting potassium level was 5.9, now down to 3.9.? He denies any prior history of BPH. Patient History Discharge Providers Provider Date of admission: 11/01/21 23:08 Discharge Date: 11/05/21 Primary care physician: Cony Rodriguez PA-C Consults: 11/03/21 13:35 Consult to Home Health Routine Comment: Reason For Exam: Home health upon DC Discharge provider: Nik Boyd DO Summary Hospital Course Discharge Diagnosis: ACUTE KIDNEY INJURY.? POST RENAL. DUE TO URINARY RETENTION.? RESOLVED URINARY RETENTION. RESOLVED AFTER ABBOTT INSERTION. LIKELY DUE TO BPH. CONSIDER URINARY BLADDER MASS POSSIBLE URINARY BLADDER MASS. PATIENT TO SEE UROLOGY OUTPATIENT. BLADDER STONE; DISCHARGE OF ABBOTT CATHETER. TO SEE UROLOGIST OUTPATIENT ELEVATED ANION GAP METABOLIC ACIDOSIS 2/2 ABOVE.? RESOLVED HYPERPHOSPHATEMIA.? SECONDARY TO KIDNEY INJURY.? RESOLVED.? HYPOPHOSPHETEMIA; RESOLVED HYPOMAGNESEMIA.? SECONDARY TO KIDNEY INJURY.? RESOLVED ?HYPOKALEMIA.? REPLACEMENT PER PHARMACY.? RESOLVED POSSIBLE ACUTE PYELONEPHRITIS.?? CULTURES REMAIN NEGATIVE.? DC ANTIBIOTICS ANEMIA.?? LIKELY? ACUTE BLOOD LOSS IN ASSOCIATION WITH CHRONIC DISEASE.? CONTINUE MONITOR CLOSELY HEMATURIA.? LIKELY SECONDARY TO ABBOTT TRAUMA.? RESOLVED ?POSSIBLE BLADDER MASS.?UNLIKELY HOWEVER? TO BE EVALUATED FURTHER OUTPATIENT BY UROLOGY STATUS POST LUMBAR SPINAL FUSION.? MONITOR CLOSELY HYPERTENSION PER HISTORY. BLE VENOUS STASIS WITHOUT DERMATITIS Hospital Course: THIS IS A VERY PLEASANT 81-YEAR-OLD MALE ADMITTED TO THE HOSPITAL WITH DIFFICULT WITH URINATION. PATIENT HAS SIGNIFICANT RETENTION AND A ABBOTT CATHETER WAS INSERTED THE ER PATIENT ALSO HAD A SIGNIFICANT DECREASE IN RENAL FUNCTION. THIS WAS ACUTE IN NATURE WHEN COMPARED TO PRIOR LABS. IN ANY CASE PATIENT HAS BEEN TREATED CONSERVATIVELY. SINCE THE INSERTION OF THE URINARY CATHETER, KIDNEY FUNCTION HAS SHOWN SIGNIFICANT IMPROVEMENT. AT THIS TIME CREATININE IS BACK TO BEING AT HIS BASELINE. NO SIGNIFICANT ELECTROLYTE IMBALANCES APPRECIATED. NO SIGNIFICANT ACIDOSIS. PATIENT HAS A HISTORY OF EDEMA TO LOWER EXTREMITIES WHICH I SUSPECT IS VENOUS STASIS . HE WAS ON NOTED TO BE ON LASIX AND HYDROCHLOROTHIAZIDE FROM HOME. DOSE MEDICATION WILL BE STOPPED AT THIS TIME. HE DOES HAVE A HISTORY OF HTN AND WILL BE CONTINUE ON A BETA-HAFSA WELL DOUBLE DEEP IN. HIS LOSARTAN WHICH WAS ON COMPLETION OF HCTZ WILL BE DISCONTINUED. ELEVATED AT ALL TIMES PATIENT ALSO HAD SOME IRREGULARITY NOTED ON ULTRASOUND AND CT SCAN DURING THIS HOSPITAL STAY. HEMATURIA WAS ALSO NOTED AFTER INSERTION OF THE ABBOTT THE MATERIAL WAS LIKELY DUE TO ABBOTT TRAUMA. HOWEVER A ULTRASOUND WAS CONCERNING FOR POSSIBLE BLADDER MASS. THERE WAS A STONE NOTED IN THE BLADDER WELL CT SCAN WILL NEED TO BE FURTHER EVALATED BY UROLOGY. THIS CAN BE DONE OUTPATIENT. PATIENT WILL NEED TO KEEP A ABBOTT CATHETER IN UNTIL HE IS EVALUATED BY UROLOGY. HE WAS STARTED ON POST CAR WELL FLOMAX. ALSO WILL NEED TO STAY ON THE MEDICATION UNTIL OTHERWISE RECOMMENDED BY UROLOGY. IN REGARD TO THE EDEMA NOTED TO LOWER EXTREMITIES PATIENT WILL NEED TO KEEP HIS LOWER EXTREMITY ELEVATED AT ALL TIMES WHILE SEATING. AND ALSO INSTRUCTED TO WEAR COMPRESSION STOCKING DURING THE DAY. OF NOTE, DUE TO HEMATURIA, HE HAS HEMOGLOBIN DID HAVE WHAT IS SUSPECTED TO BE ACUTE BLOOD LOSS ANEMIA. THIS IS LIKELY ON COMBINATION OF CHRONIC DISEASE. NO TRANSFUSION INDICATED. PATIENT DISCHARGED ON IRON WELL B12 PATIENT DISCHARGED ON STOOL SOFTENER TO DECREASE THE RISK OF CONSTIPATION WHILE ON IRON REPLACEMENT THERAPY IN ANY CASE. AT THIS TIME PATIENT APPEARED TO BE CLINICALLY STABLE. HE WILL BE DISCHARGED TO HOME. ADDITIONAL MANAGEMENT WILL DEFER TO THE OUTPATIENT PROVIDERS. ACTIVITIES TOLERATED CARDIAC/ RENAL DIET FOLLOW WITH PRIMARY CARE PHYSICIAN WITHIN 1-2 WEEKS FOLLOW-UP WITH UROLOGY SOON AN APPOINTMENT COULD BE OBTAINED HOME HEALTH TO PROVIDE ABBOTT CARE AND TEACHINGS Status at Discharge Cognitive/behavioral status at discharge: oriented Functional status at discharge: independent ambulation Overall status at discharge: patient is back to baseline Time Spent with Patient Time spent: Greater than 30 minutes Exam Vital Signs (past 8 hours): - 11/05/21 08:51 11/05/21 12:00 Temperature 98.4 F 98.7 F Pulse Rate 98 H 107 H Respiratory Rate 19 18 Blood Pressure 154/74 H 139/70 Pulse Oximetry 98 100 Oxygen Delivery Method Room Air Oxygen Flow Rate 0 Narrative Exam Narrative: NO ACUTE DISTRESS.? PATIENT IS ALERT ORIENTED X3. VITAL SIGNS STABLE HEAD ATRAUMATIC NORMOCEPHALIC NECK : SUPPLE WITHOUT ADENOPATHY NO CAROTID BRUITS EYE:? EOMI, PERRLA, NORMAL CONJUNCTIVA; NO JAUNDICE CHEST:? REGULAR RATE.? ? NO RUBS.? PMI IS NON DISPLACED.? NO MURMURS; NORMAL S1-S2 PULMONARY:? DECREASED BS OVER THE BASES.? MILD BIBASILAR CRACKLES NOTED; NO INCREASED DULLNESS TO PERCUSSION ABDOMEN:? SOFT.? NONTENDER.? NONDISTENDED.? BOWEL SOUNDS ARE PRESENT IN ALL 4 QUADRANTS.? NO MASS. EXTREMITIES: NO EDEMA..? NO CYANOSIS CLUBBING NOTED. NEURO:? CRANIAL NERVES 2-12 GROSSLY INTACT. NO FOCAL NEUROLOGICAL DEFICIT NOTED. MSK:? NORMAL RANGE OF MOTION FOR AGE.? NO JOINT EFFUSION. SKIN:? NORMAL FOR ETHNICITY; NO ECCHYMOSIS.? NO LESION. ? GOOD? TURGOR.; NO RASHES :? NORMAL EXTERNAL GENITALIA.? ABBOTT THE CATHETER IN PLACE. YELLOWISH URINE IN BAG THIS AM PSYCH :? APPROPRIATE MOOD AND AFFECT.? ALERT AWAKE ORIENTED X3 Objective Labs Result Diagrams: 11/05/21 04:45 11/05/21 04:45 Labs: Laboratory Results - last 24 hr 11/05/21 11/05/21 04:45 04:45 WBC 6.5 RBC 2.46 L Hgb 7.7 L Hct 22.0 L MCV 89.2 MCH 31.1 MCHC 34.9 RDW 13.3 Plt Count 184 Neut % (Auto) 64.1 Lymph % (Auto) 16.9 L [place] % (Auto) 10.5 Eos % (Auto) 7.5 H Baso % (Auto) 1.0 Neut # (Auto) 4200 Lymph # (Auto) 1100 [place] # (Auto) 700 Eos # (Auto) 500 H Baso # (Auto) 100 Sodium 136 L Potassium 3.6 Chloride 108 H Carbon Dioxide 22 BUN 17 Creatinine 1.02 Estimated GFR > 60 BUN/Creatinine Ratio 16.7 Glucose 109 Calcium 8.4 Phosphorus 2.3 Magnesium 1.4 L Total Bilirubin 0.6 AST 31 ALT 16 Alkaline Phosphatase 61 Total Protein 5.7 L Albumin 3.1 L Globulin 2.6 Albumin/Globulin Ratio 1.2 PFSH Medical History Depression Glaucoma Hearing impaired HNP (herniated nucleus pulposus), lumbar HTN (hypertension) Lumbar foraminal stenosis Sciatica Seasonal allergies Skin rash Spinal stenosis Spondylolisthesis at L4-L5 level Stomach ulcer (1996) Surgical History Hx of appendectomy Hx of bilateral cataract extraction Hx of shoulder surgery Hx of tonsillectomy Family History (Updated 11/02/21 @ 00:09 by Reanna Dimas MD) Father due to natural causes Mother due to natural causes Dementia Brother Kidney lesion Social History household members: none Smoking Status: Former smoker alcohol intake: current Discharge Plan Discharge Plan Patient Disposition: Home Health Service Provider Discharge Comment: REFER TO UROLOGY PRIOR TO DC PLEASE. THANKS Nursing Discharge Comment: NEED A LEG BAG FOR THE ABBOTT CATH PLEASE . THANKS Discharge orders & Medications Prescriptions: New tamsulosin [Flomax] 0.4 mg Capsule 0.4 mg PO DAILY Qty: 30 3RF Nephro-Karuna 0.8 mg Tablet 1 tab PO DAILY Qty: 30 3RF finasteride 5 mg Tablet 5 mg PO DAILY Qty: 30 3RF ferrous sulfate 325 mg (65 mg iron) tablet 325 mg PO DAILY Qty: 30 3RF ascorbic acid (vitamin C) 500 mg tablet 500 mg PO BID Qty: 60 3RF polyethylene glycol 3350 [Miralax] 17 gram powder in packet 17 g PO DAILY Qty: 30 2RF sennosides [senna] 8.6 mg tablet 8.6 mg PO BEDTIME Qty: 30 3RF Continued gabapentin 300 mg capsule 300 mg PO .COMPLEX PRN (Reason: pain) 0RF Rx Instructions: 1-2 PO Tid to begin at HS and titrate to pain relief docusate sodium 100 mg Capsule 100 mg PO BID PRN (Reason: constipation) Qty: 60 0RF hydrocodone-acetaminophen 10-325 mg tablet 1 tab PO Q4-6H PRN (Reason: pain (scale score 7-10)) Qty: 40 0RF cyclobenzaprine 10 mg tablet 10 mg PO TID PRN (Reason: Pain (Scale Score 1-3)) 0RF Label Comments: TAKE 1 TABLET BY MOUTH THREE TIMES DAILY NEEDED FOR MUSCLE SPASM oxycodone 5 mg tablet 5 mg PO BEDTIME PRN (Reason: Pain (Scale Score 1-3)) 0RF Label Comments: TAKE 1 TABLET BY MOUTH AT NIGHT NEEDED Vyzulta 0.024 % drops 1 drp ophthalmic (eye) BEDTIME 0RF metoprolol succinate 50 mg tablet extended release 24 hr 50 mg PO DAILY 0RF amlodipine 5 mg tablet 5 mg PO DAILY 0RF montelukast 10 mg tablet 10 mg PO DAILY 0RF acetaminophen 500 mg capsule 500 mg PO DAILY PRN (Reason: Pain) 0RF dorzolamide-timolol 22.3-6.8 mg/mL drops 1 drp EYE-BOTH BID 0RF Discontinued cyclobenzaprine 10 mg tablet 10 mg PO TID PRN (Reason: muscle spasm) Qty: 60 0RF docusate sodium 100 mg capsule 100 mg PO BID 0RF Label Comments: TAKE ONE CAPSULE BY MOUTH TWICE DAILY NEEDED FOR CONSTIPATION furosemide 20 mg tablet 20 mg PO BID 0RF Label Comments: TAKE 1 TABLET BY MOUTH TWICE DAILY losartan-hydrochlorothiazide 100-25 mg tablet 1 tab PO DAILY 0RF Vyzulta 0.024 % drops 1 drp EYE-BOTH BEDTIME 0RF Follow up/Referrals: Cony Rodriguez, PADebbieC [Primary Care Provider] - Diet/Activity/Treatments Diet: Low-sodium and Low-cholesterol Activity: TOLERATED Catheter: 2-way Abbott Catheter comment: DAILY ABBOTT CARE ; TO BE REMOVED BY UROLOGIST ONLY PLEASE Visit Report/Discharge Packet Instructions: How to Care for Your Abbott Catheter -- Male Discharge Data Primary Care Provider: Cony Rodriguez
--- NOTE | 2021-11-05 15:02 | PC.NURSE ---
Discharge Note Patient A&O, VSS, RA, no complaints of pain/discomfort. Catheter care and leg bag teaching done with patient, all questions/concerns addressed, patient also sent home with written instruction. Discharge packet reviewed with patient, all questions/concerns addressed, patient reminded to sweet pickled fruit maker prescriptions at preferred pharmacy. Patient assisted to dress self with catheter and leg bag. All belongings packed and given to patient along with discharge packet. Patient taken down via wheelchair to POV.
== END 2021-11-05 14:25 | disposition home health service (06) | DRG 683 ==
LOC: ED 23:09 → AC 23:09
PROVIDERS: Emergency Medicine; Hospitalist; Admitting Provider Family Medicine; Emergency Provider Emergency Medicine; PCP Physician Assistant; Referring Provider Emergency Medicine; Visit Provider Family Medicine
DX: N17.9 Acute kidney failure, unspecified (principal); E87.2 Acidosis; T83.83XA Hemorrhage due to genitourinary prosthetic devices, implants and grafts, initial encounter; D62 Acute posthemorrhagic anemia; R31.0 Gross hematuria; E83.39 Other disorders of phosphorus metabolism; E83.42 Hypomagnesemia; E87.6 Hypokalemia; R33.9 Retention of urine, unspecified; N21.0 Calculus in bladder; N32.89 Other specified disorders of bladder; I10 Essential (primary) hypertension; M48.061 Spinal stenosis, lumbar region without neurogenic claudication; H40.9 Unspecified glaucoma; N40.1 Benign prostatic hyperplasia with lower urinary tract symptoms; Z20.822 Contact with and (suspected) exposure to COVID-19; Z87.891 Personal history of nicotine dependence
CPT/HCPCS: 36415; 51702; 51798; 72148; 74176; 76770; 80048; 80053; 81001; 82570; 83735; 84100; 84300; 85014; 85018; 85025; 86850; 86900; 86901; 87086; 87635; 93005; 93010; 96361; 96365; 96375; 99284; 99285; C9803; J0696; J1644; J1756; J2060; J2270; J3475; J7050

== ENCOUNTER → 2022-01-03 10:31 | Outpatient (CLI) | payer MEDICARE, SELFPAY ==
[2021-10-10 17:30] VITALS: BMI 28.0
--- NOTE | 2022-01-03 | DI.ECHO.S_ITS ---
[facility]---------+ [facility] +---------+ : : [address] : : : : [id number] : : : : Phone: [phone]+ Echocardiogram Report + + :Name: KYLE GUADARRAMA Study Date: 01/03/2022 Height: 69 in : :[facility] ReadingLocation: Weight: 180 lb : : Gender: Male BSA: 2.0 m2 : :: 1940 Age: 81 yrs BP: 157/84 mmHg: :Reason For Study: Dyspnea : :Ordering Physician: KEVIN, : :ADI Performed By: Horace Almazan : :Referring: ADI BROWN : + + Interpretation Summary The left ventricle is normal in size and wall thickness. The ejection fraction is estimated to be 60-65%. The right ventricle is normal in size and function. The interatrial septum bows toward right atrium consistent with elevated left atrial pressure. There is moderate aortic regurgitation. The ascending aorta is mild-moderately enlarged. 4.1 cm in diameter. The IVC is of normal diameter and collapses greater than 50% with a sniff. This suggests a low right atrial pressure of 3 mm Hg. Procedure: A two-dimensional transthoracic echocardiogram with color flow and Doppler was performed. The study quality was technically adequate. There is no prior echocardiogram noted for this patient. The patient was in normal sinus rhythm during the exam. Left Ventricle: The left ventricle is normal in size and wall thickness. There is no thrombus. Left ventricular systolic function is normal. The ejection fraction is estimated to be 60-65%. There are no focal wall motion abnormalities. MV E/A: 1.3 Med Peak E' Javan: 7.7 cm/sec E/E' med: 10.9. Right Ventricle: The right ventricle is normal in size and function. Atria: Both atria are normal in size. The interatrial septum grossly appears intact with no obvious evidence for an atrial septal defect. The interatrial septum bows toward right atrium consistent with elevated left atrial pressure. Mitral Valve: The mitral valve is normal in structure and function. There is trace mitral regurgitation. Aortic Valve: The aortic valve is trileaflet. The aortic valve opens well. There is no aortic valve stenosis. There is moderate aortic regurgitation. Tricuspid Valve: The tricuspid valve is normal in structure and function. There is trace tricuspid regurgitation. Pulmonary artery pressures cannot be estimated because of the lack of a measurable TR jet velocity. Pulmonic Valve: The pulmonic valve is normal in structure and function. There is a trace or physiologic amount of pulmonic regurgitation. Great Vessels: The aortic root is normal size. The ascending aorta is mild- moderately enlarged. The IVC is of normal diameter and collapses greater than 50% with a sniff. This suggests a low right atrial pressure of 3 mm Hg. Pericardium/ Pleura There is no pericardial effusion. There is no pleural effusion. MMode/2D Measurements & Calculations LVIDd: 5.2 cm LVOT diam: 2.3 cm LVIDs: 3.8 cm Ao root diam: 3.4 cm FS: 26.9 % asc Aorta Diam: 4.1 cm IVSd: 1.0 cm LVPWd: 1.0 cm LV michelle. diameter/BSA (cm/m^2): 2.6 LV sys. diameter/BSA (cm/m^2): 1.9 LA dimension: 3.5 cm RA long axis: 6.1 cm LA A2 area: 17.4 cm2 LA A4 area: 19.5 cm2 LA length (vol): 4.5 cm LA vol: 63.4 ml LA vol index: 32.1 ml/m2 TAPSE_phl: 2.2 cm Doppler Measurements & Calculations Ao V2 max: 140.0 cm/sec LVOT Max Javan: 108.0 cm/sec Ao V2 mean: 96.0 cm/sec LV V1 max P.7 mmHg Ao max P.0 mmHg LV V1 VTI: 23.7 cm Ao mean P.0 mmHg PHILIPPE(I,D): 3.5 cm2 Ao V2 VTI: 28.5 cm PHILIPPE(V,D): 3.2 cm2 sev ratio: 0.83 PHILIPPE indexed to BSA (cm^2/m^2): 1.7 AI P1/2t: 353.6 msec AI dec slope: 381.0 cm/sec2 MV E max javan: 84.0 cm/sec SV(LVOT): 98.5 ml MV A max javan: 63.8 cm/sec MV E/A: 1.3 Med Peak E' Javan: 7.7 cm/sec E/E' med: 10.9 Lat Peak E' Javan: 10.5 cm/sec E/E' lat: 8.0 E/e' average: 9.4 MV dec time: 0.22 sec AV P1/2t-pr_phl: 354.0 msec MV P1/2t-pr_phl: 66.0 msec AV VR_phl: 0.77 PHILIPPE(VTI)/BSA_phl: 1.7 Reading Physician:05:36 PM
== END ==
PROVIDERS: PCP Physician Assistant; Referring Provider Student in an Organized Health Care Education/Training Program; Visit Provider Student in an Organized Health Care Education/Training Program
DX: I35.1 Nonrheumatic aortic (valve) insufficiency (principal); I77.89 Other specified disorders of arteries and arterioles; R06.09 Other forms of dyspnea; R22.43 Localized swelling, mass and lump, lower limb, bilateral
CPT/HCPCS: 93306